=== PATIENT | female | born 1930 | race Caucasian/White ===

== ENCOUNTER → 2016-08-21 | Outpatient (REF) | payer MEDICARE, MEDICAID ==
[~2016-08-21] MED LIST: /FENO48TA OR; AMLO5TAB2 PO; Amlodipine PO; CARB25TA31 PO; CENTTAB OR; ESTR3TA OR; FOLI1TAB OR; HYDR10TA2 OR; HYDR10TA3 OR; LEVO500T PO; LIDO1DIS2 TOP; LIDO5DIS EX; LISI10TA4 OR; LOSA25TA8 OR; MAGN500T2 OR; MIRAPEX PO; NEUR100C OR; OYST500T OR; SINE25TA2 OR; SYNT50TA OR; TOPI25TA2 OR; VICO5TAB OR; VIT D 2000 PO; VITA100T OR; VITA25003 SL; VITA400C OR; VITAMIN D50000 UNT OR; ZOLO100T OR; dexilant PO
[2016-08-21 12:18] LABS: ALBUMIN 3.4 GM/DL (3.2-5.2); ALBUMIN/GLOBULIN RATIO 1.13 (1.00-1.93); BILIRUBIN,TOTAL 0.3 MG/DL (0.2-1.0); CALCIUM LEVEL 8.9 MG/DL (8.8-10.2); CREATININE FOR GFR 1.13 MG/DL (0.55-1.02); GLOMERULAR FILTRATION RATE 48.8 (>32); POTASSIUM SERUM 4.2 MEQ/L (3.5-5.1); TOTAL PROTEIN 6.4 GM/DL (6.4-8.2)
== END | disposition home or self-care (01) ==
LOC: M SFHCPLAZ 09:16
PROVIDERS: ATTEND Internal Medicine
DX: I10 Essential (primary) hypertension (principal); E78.00 Pure hypercholesterolemia, unspecified; E03.9 Hypothyroidism, unspecified

== ENCOUNTER → 2016-10-15 | Outpatient (CLI) | payer MEDICARE, MEDICAID ==
--- NOTE | 2016-10-15 12:28 | REPMRS ---
Patient History The patient states she has not had a clinical breast exam in over a year. No known family history of cancer. Digital Woman Screen Mammo: October 15, 2016 - Exam #: [id number] Bilateral CC and MLO view(s) were taken. Technologist: Denise Larson, Technologist Prior study comparison: 2014, digital bilateral screening mammo, performed at [facility]. FINDINGS: There are scattered fibroglandular densities. There has been no change in the appearance of the mammogram from the prior studies. There is a mild amount of residual fibroglandular tissue which is fairly symmetric. There is no interval development of dominant mass, architectural distortion, or clustered microcalcification suggestive of malignancy. ASSESSMENT: BI-RADS/ACR category 1 mammogram. Negative. Recommendation Routine screening mammogram in 1 year (for women over age 40). This mammogram was interpreted with the aid of an FDA-approved computer-aided dectection system. Electronically Signed By: Sonny Sung MD 10/15/16 [id number]
== END ==
LOC: M WHC 11:06
PROVIDERS: ATTEND Internal Medicine
DX: Z12.31 Encounter for screening mammogram for malignant neoplasm of breast (principal); M81.0 Age-related osteoporosis without current pathological fracture
CPT/HCPCS: 77080; G0202

== ENCOUNTER → 2017-01-01 | Outpatient (REF) | payer MEDICARE, MEDICAID ==
[~2017-01-01] MED LIST changes: +ATOR1TAB19 PO; +DEXI60CA2 PO; +FURO40TA2 PO; +HYDR-3713 PO; +LEVO25TA5 PO; +LOSA25TA8 PO; +MIRA0.254 PO; +TOPA1TAB PO
[2017-01-01 12:37] LABS: CALCIUM LEVEL 9.3 MG/DL (8.8-10.2); CREATININE FOR GFR 1.18 MG/DL (0.55-1.02); GLOMERULAR FILTRATION RATE 46.5 (>32); POTASSIUM SERUM 4.1 MEQ/L (3.5-5.1)
== END ==
LOC: M SFHCPLAZ 08:59
PROVIDERS: ATTEND Nurse Practitioner Adult Health
DX: R60.0 Localized edema (principal)
CPT/HCPCS: 80048; G0463

== ENCOUNTER 2017-03-19 11:17 | Day surgery (SDC) | payer MEDICARE, MEDICAID ==
[~2017-03-19] VITALS: Ht 152.4 cm; Wt 77.1 kg
[~2017-03-19 11:17] MED LIST changes: +ACETAMINOPHEN 325 MG TAB PO PRN; +BSS with VANC/TOB/EPI for EYE CASES IR ONE; +CYCLOPENTOLATE 2% OPHTH SOLN 2ML BTL OS ONE; +HEALON DUET (HEALON 10MG/ML 0.55ML & HEALON ENDOCOAT 30MG/ML 0.85ML) As Ordered ONE; +LIDOCAINE 1% SDV 5 ML VIAL As Ordered ONE; +LIDOCAINE 3.5 % 1ML OPHTH TOPICAL GEL OU ONE; +MOXIFLOXACIN IN BSS 0.25MG/0.25ML INTRACAMERAL INJ (OR EYE ONLY)(J2280) As Ordered ONE; +OFLOXACIN 0.3 % (OCUFLOX) OPTH SOL 5ML OS ONE; +PHENYLEPHRINE 2.5% OPHTH SOL 2ML OS ONE; +POVIDONE-IODINE 5% OPHTH PREP SOL 30ML As Ordered ONE; +PROPARACAINE 0.5% OPHTH SOL 15ML OS PRN; +TRIAMCINOLONE PRES FR 40 MG/ML 1ML(TRIESENCE)(OR EYE ONLY)(J3300 PER 1MG) As Ordered ONE; +TROPICAMIDE 1% OPHTH SOLN 2ML OS ONE
[2017-03-19] MEDS ORDERED: D5W/0.2% SODIUM CHLORIDE 250 ML IV ONE (11:30)
[2017-03-19] MEDS ORDERED: fentaNYL 100 MCG/2 ML INJECTION (J3010) As Ordered ONE (12:15)
[2017-03-19] MEDS ORDERED: MIDAZOLAM INJ 2 MG/2 ML VIAL (J2250) As Ordered ONE (12:15)
[2017-03-19] MEDS ORDERED: AcetaZOLAMIDE 500 MG ER CAP PO ONE (13:30)
[2017-03-19] MEDS ORDERED: TRIMETHOBENZAMIDE 300 MG CAP PO PRN (13:30)
[2017-03-19 14:00] VITALS: BP 167/78
== END 2017-03-19 14:05 | disposition home or self-care (01) ==
LOC: M SDC 11:17
PROVIDERS: ATTEND Ophthalmology
DX: H26.9 Unspecified cataract (principal); I10 Essential (primary) hypertension; E03.9 Hypothyroidism, unspecified; R60.0 Localized edema; M19.90 Unspecified osteoarthritis, unspecified site; G43.909 Migraine, unspecified, not intractable, without status migrainosus; R29.818 Other symptoms and signs involving the nervous system; M54.9 Dorsalgia, unspecified; Z95.0 Presence of cardiac pacemaker; Z88.8 Allergy status to other drugs, medicaments and biological substances; Z79.899 Other long term (current) drug therapy
CPT/HCPCS: 66984; J2250; J2280; J3010; J3300; V2632

== ENCOUNTER → 2017-03-27 | Outpatient (REF) | payer MEDICARE, MEDICAID ==
[~2017-03-27] MED LIST changes: -ACETAMINOPHEN 325 MG TAB PO PRN; -BSS with VANC/TOB/EPI for EYE CASES IR ONE; -CYCLOPENTOLATE 2% OPHTH SOLN 2ML BTL OS ONE; -HEALON DUET (HEALON 10MG/ML 0.55ML & HEALON ENDOCOAT 30MG/ML 0.85ML) As Ordered ONE; -LIDOCAINE 1% SDV 5 ML VIAL As Ordered ONE; -LIDOCAINE 3.5 % 1ML OPHTH TOPICAL GEL OU ONE; -MOXIFLOXACIN IN BSS 0.25MG/0.25ML INTRACAMERAL INJ (OR EYE ONLY)(J2280) As Ordered ONE; -OFLOXACIN 0.3 % (OCUFLOX) OPTH SOL 5ML OS ONE; -PHENYLEPHRINE 2.5% OPHTH SOL 2ML OS ONE; -POVIDONE-IODINE 5% OPHTH PREP SOL 30ML As Ordered ONE; -PROPARACAINE 0.5% OPHTH SOL 15ML OS PRN; -TRIAMCINOLONE PRES FR 40 MG/ML 1ML(TRIESENCE)(OR EYE ONLY)(J3300 PER 1MG) As Ordered ONE; -TROPICAMIDE 1% OPHTH SOLN 2ML OS ONE
[2017-03-27 12:52] LABS: ALBUMIN 3.5 GM/DL (3.2-5.2); BILIRUBIN,TOTAL 0.4 MG/DL (0.2-1.0); CALCIUM LEVEL 8.9 MG/DL (8.8-10.2); CREATININE FOR GFR 1.32 MG/DL (0.55-1.02); GLOMERULAR FILTRATION RATE 40.7 (>32); MAGNESIUM LEVEL 2.5 MG/DL (1.8-2.4); POTASSIUM SERUM 4.5 MEQ/L (3.5-5.1)
== END ==
LOC: M SFHCPLAZ 08:35
PROVIDERS: ATTEND Internal Medicine
DX: I10 Essential (primary) hypertension (principal)

== ENCOUNTER 2017-04-14 09:09 | Day surgery (SDC) | payer MEDICARE, MEDICAID ==
[~2017-04-14] VITALS: Ht 152.4 cm; Wt 77.1 kg
[~2017-04-14 09:09] MED LIST changes: +ACETAMINOPHEN 325 MG TAB PO PRN; +BSS with VANC/TOB/EPI for EYE CASES IR ONE; +CYCLOPENTOLATE 2% OPHTH SOLN 2ML BTL OD ONE; +LIDOCAINE 3.5 % 1ML OPHTH TOPICAL GEL OU ONE; +OFLOXACIN 0.3 % (OCUFLOX) OPTH SOL 5ML OD ONE; +PHENYLEPHRINE 2.5% OPHTH SOL 2ML OD ONE; +PROPARACAINE 0.5% OPHTH SOL 15ML OD PRN; +TROPICAMIDE 1% OPHTH SOLN 2ML OD ONE
[2017-04-14] MEDS ORDERED: LR 1,000 ML IV ONE (09:15)
[2017-04-14] MEDS ORDERED: TRIAMCINOLONE PRES FR 40 MG/ML 1ML(TRIESENCE)(OR EYE ONLY)(J3300 PER 1MG) As Ordered ONE (09:38)
[2017-04-14] MEDS ORDERED: LIDOCAINE 1% SDV 5 ML VIAL As Ordered ONE (09:38)
[2017-04-14] MEDS ORDERED: MOXIFLOXACIN IN BSS 0.25MG/0.25ML INTRACAMERAL INJ (OR EYE ONLY)(J2280) As Ordered ONE (09:38)
[2017-04-14] MEDS ORDERED: POVIDONE-IODINE 5% OPHTH PREP SOL 30ML As Ordered ONE (09:38)
[2017-04-14] MEDS ORDERED: HEALON DUET (HEALON 10MG/ML 0.55ML & HEALON ENDOCOAT 30MG/ML 0.85ML) As Ordered ONE (09:38)
[2017-04-14] MEDS ORDERED: MIDAZOLAM INJ 2 MG/2 ML VIAL (J2250) As Ordered ONE (09:59)
[2017-04-14] MEDS ORDERED: fentaNYL 100 MCG/2 ML INJECTION (J3010) As Ordered ONE (09:59)
[2017-04-14] MEDS ORDERED: TRIMETHOBENZAMIDE 300 MG CAP PO PRN (10:30)
[2017-04-14] MEDS ORDERED: AcetaZOLAMIDE 500 MG ER CAP PO ONE (10:30)
[2017-04-14 10:35] VITALS: BP 182/81
== END 2017-04-14 10:50 | disposition home or self-care (01) ==
LOC: M SDC 09:09
PROVIDERS: ATTEND Ophthalmology
DX: H25.11 Age-related nuclear cataract, right eye (principal); R00.1 Bradycardia, unspecified; I10 Essential (primary) hypertension; R60.0 Localized edema; E06.9 Thyroiditis, unspecified; M12.9 Arthropathy, unspecified; G25.81 Restless legs syndrome; E55.9 Vitamin D deficiency, unspecified; K21.9 Gastro-esophageal reflux disease without esophagitis; M54.2 Cervicalgia; R29.898 Other symptoms and signs involving the musculoskeletal system; G43.909 Migraine, unspecified, not intractable, without status migrainosus; M81.0 Age-related osteoporosis without current pathological fracture; Z88.6 Allergy status to analgesic agent; Z79.899 Other long term (current) drug therapy; Z95.0 Presence of cardiac pacemaker
CPT/HCPCS: 66984; J2250; J2280; J3010; J3300; V2632

== ENCOUNTER 2017-09-13 11:11 | Emergency (ER) | payer OTHER, MEDICAID, MEDICARE ==
[2017-09-13 12:19] LABS: BASO % 0.4 % (0.0-1.0); EOS # 0.1 10^3/uL (0.0-0.50); EOS % 1.5 % (0.0-3.0); HEMATOCRIT 33.7 % (36.0-47.0); HEMOGLOBIN 10.8 g/dl (12.0-16.0); IMMATURE GRANULOCYTE % 0.4 % (0-3.0); LYMPH # 1.8 10^3/uL (1.5-4.5); LYMPH % 20.6 % (24.0-44.0); MEAN CORPUSCULAR HEMOGLOBIN 30.9 pg (27.0-33.0); MEAN CORPUSCULAR VOLUME 96.6 fl (80.0-96.0); MONO # 0.6 10^3/uL (0.0-0.8); MONO % 7.2 % (0.0-5.0); NEUTROPHILS % 69.9 % (36.0-66.0); PLATELET COUNT, AUTOMATED 250 10^3/uL (150-450); RED BLOOD COUNT 3.49 10^6/uL (4.00-5.40); RED CELL DISTRIBUTION WIDTH 14.1 % (11.5-14.5); WHITE BLOOD COUNT 8.5 10^3/uL (4.0-10.0)
[2017-09-13 12:26] LABS: INR 1.09; PROTHROMBIN TIME 14.2 SECONDS (12.4-14.5)
[2017-09-13 12:36] LABS: ANION GAP 8 MEQ/L (8-16); BLOOD UREA NITROGEN 22 MG/DL (7-18); CALCIUM LEVEL 8.4 MG/DL (8.8-10.2); CARBON DIOXIDE LEVEL 20 MEQ/L (21-32); CHLORIDE LEVEL 113 MEQ/L (98-107); CK-MB VALUE MASS 14.5 NG/ML (0.0-3.6); CPK CREATINE PHOSPHOKINASE 419 U/L (26-192); CREATININE FOR GFR 1.45 MG/DL (0.55-1.30); GLOMERULAR FILTRATION RATE 36.5 (>32); GLUCOSE, FASTING 101 MG/DL (70-100); MB/CK RELATIVE INDEX 3.46 (< OR =4); SODIUM LEVEL 141 MEQ/L (136-145)
[2017-09-13 12:41] LABS: TROPONIN I 2.58 NG/ML (< 0.10)
[2017-09-13 12:42] LABS: ALBUMIN 3.3 GM/DL (3.2-5.2); ALBUMIN/GLOBULIN RATIO 0.97 (1.00-1.93); ALKALINE PHOSPHATASE 88 U/L (45-117); ALT/SGPT 26 U/L (12-78); AST/SGOT 45 U/L (7-37); BILIRUBIN,DIRECT 0.2 MG/DL (0.0-0.2); BILIRUBIN,TOTAL 0.6 MG/DL (0.2-1.0); C REACTIVE PROTEIN QUANTITATIV 1.46 MG/DL (0.00-0.30); NT-PRO BNP 10383 PG/ML (<450); THYROXINE (T4) 9.9 UG/DL (4.5-12.0); TOTAL PROTEIN 6.7 GM/DL (6.4-8.2)
[2017-09-13 12:51] LABS: LACTIC ACID SEPSIS PROTOCOL 1.6 MMOL/L (0.4-2.0)
[2017-09-13] MEDS ORDERED: HEPARIN SOD (PORCINE) 5000 UNITS/ML VIAL IV (13:00)
[2017-09-13 13:02] LABS: INFLUENZA A AMPLIFICATION NEGATIVE (NEGATIVE); INFLUENZA B AMPLIFICATION NEGATIVE (NEGATIVE)
[2017-09-13] MEDS: CLOPIDOGREL 300 MG TAB (PLAVIX) PO (13:28)
[2017-09-13] MEDS: FUROSEMIDE 40 MG/4 ML VIAL (J1940) IV (13:28)
[2017-09-13] MEDS: HEPARIN DRIP 25,000 UNITS in APPROPRIATE DILUENT 1 EA IV (13:36)
[2017-09-13 14:55] LABS: PARTIAL THROMBOPLASTIN TIME 30.7 SECONDS (26.8-37.9)
== END 2017-09-13 14:56 | disposition short-term general hospital (02) ==
LOC: M ED 11:11
DX: I21.4 Non-ST elevation (NSTEMI) myocardial infarction (principal); I11.0 Hypertensive heart disease with heart failure; I50.9 Heart failure, unspecified; R91.8 Other nonspecific abnormal finding of lung field; Z91.81 History of falling; E03.9 Hypothyroidism, unspecified; E78.5 Hyperlipidemia, unspecified; Z88.6 Allergy status to analgesic agent; Z79.899 Other long term (current) drug therapy
CPT/HCPCS: J1940

== ENCOUNTER → 2017-09-22 | Outpatient (REF) | payer MEDICARE, MEDICAID ==
[2017-09-22 12:28] LABS: HEMATOCRIT 32.2 % (36.0-47.0); HEMOGLOBIN 10.1 g/dl (12.0-16.0); MEAN CORPUSCULAR HEMOGLOBIN 29.9 pg (27.0-33.0); MEAN CORPUSCULAR HGB CONC 31.4 g/dl (32.0-36.5); MEAN CORPUSCULAR VOLUME 95.3 fl (80.0-96.0); PLATELET COUNT, AUTOMATED 253 10^3/uL (150-450); RED BLOOD COUNT 3.38 10^6/uL (4.00-5.40); RED CELL DISTRIBUTION WIDTH 14.5 % (11.5-14.5); TOTAL 25(OH) VITAMIN D 47.3 NG/ML (30.0-100.0); WHITE BLOOD COUNT 5.7 10^3/uL (4.0-10.0)
[2017-09-22 12:50] LABS: ALBUMIN 3.3 GM/DL (3.2-5.2); ALBUMIN/GLOBULIN RATIO 0.92 (1.00-1.93); ALKALINE PHOSPHATASE 75 U/L (45-117); ALT/SGPT 31 U/L (12-78); ANION GAP 13 MEQ/L (8-16); AST/SGOT 23 U/L (7-37); BILIRUBIN,TOTAL 0.5 MG/DL (0.2-1.0); BLOOD UREA NITROGEN 44 MG/DL (7-18); CALCIUM LEVEL 8.5 MG/DL (8.8-10.2); CARBON DIOXIDE LEVEL 17 MEQ/L (21-32); CHLORIDE LEVEL 111 MEQ/L (98-107); CHOLESTEROL LEVEL 128 MG/DL (<200); CHOLESTEROL RISK RATIO 3.368 (<5); CREATININE FOR GFR 1.37 MG/DL (0.55-1.30); GLUCOSE, FASTING 97 MG/DL (70-100); HDL CHOLESTEROL 38 MG/DL (>40); LDL CHOLESTEROL 58.6 MG/DL (<100); MAGNESIUM LEVEL 2.5 MG/DL (1.8-2.4); NON-HDL-C 90 MG/DL; POTASSIUM SERUM 4.8 MEQ/L (3.5-5.1); SODIUM LEVEL 141 MEQ/L (136-145); TOTAL PROTEIN 6.9 GM/DL (6.4-8.2); TRIGLYCERIDES LEVEL 157 MG/DL (<150)
== END ==
LOC: M SFHCPLAZ 08:16
DX: G25.81 Restless legs syndrome (principal); K22.70 Barrett's esophagus without dysplasia; I10 Essential (primary) hypertension; E78.00 Pure hypercholesterolemia, unspecified; E03.9 Hypothyroidism, unspecified; E55.9 Vitamin D deficiency, unspecified; M81.0 Age-related osteoporosis without current pathological fracture
CPT/HCPCS: 83735

== ENCOUNTER → 2017-11-11 | Outpatient (CLI) | payer OTHER, MEDICAID ==
[2017-11-11 10:45] LABS: ALBUMIN 3.3 GM/DL (3.2-5.2); ANION GAP 7 MEQ/L (8-16); BLOOD UREA NITROGEN 31 MG/DL (7-18); CALCIUM LEVEL 8.6 MG/DL (8.8-10.2); CARBON DIOXIDE LEVEL 23 MEQ/L (21-32); CHLORIDE LEVEL 113 MEQ/L (98-107); CREATININE FOR GFR 1.34 MG/DL (0.55-1.30); GLUCOSE, FASTING 98 MG/DL (70-100); PHOSPHORUS LEVEL 3.6 MG/DL (2.5-4.9); POTASSIUM SERUM 3.8 MEQ/L (3.5-5.1); SODIUM LEVEL 143 MEQ/L (136-145)
== END ==
LOC: M LAB 09:52
DX: I50.32 Chronic diastolic (congestive) heart failure (principal)
CPT/HCPCS: 80069

== ENCOUNTER → 2018-01-28 | Outpatient (REF) | payer MEDICARE, MEDICAID ==
[2018-01-28 12:43] LABS: ALBUMIN 3.4 GM/DL (3.2-5.2); ALBUMIN/GLOBULIN RATIO 0.92 (1.00-1.93); ALKALINE PHOSPHATASE 98 U/L (45-117); ALT/SGPT 20 U/L (12-78); ANION GAP 8 MEQ/L (8-16); AST/SGOT 16 U/L (7-37); BILIRUBIN,TOTAL 0.5 MG/DL (0.2-1.0); BLOOD UREA NITROGEN 40 MG/DL (7-18); CALCIUM LEVEL 8.7 MG/DL (8.8-10.2); CARBON DIOXIDE LEVEL 24 MEQ/L (21-32); CHLORIDE LEVEL 114 MEQ/L (98-107); CHOLESTEROL LEVEL 133 MG/DL (<200); CHOLESTEROL RISK RATIO 3.594 (<5); CREATININE FOR GFR 1.61 MG/DL (0.55-1.30); GLOMERULAR FILTRATION RATE 32.4 (>32); GLUCOSE, FASTING 95 MG/DL (70-100); HDL CHOLESTEROL 37 MG/DL (>40); LDL CHOLESTEROL 65.4 MG/DL (<100); MAGNESIUM LEVEL 2.5 MG/DL (1.8-2.4); NON-HDL-C 96 MG/DL; POTASSIUM SERUM 4.7 MEQ/L (3.5-5.1); SODIUM LEVEL 146 MEQ/L (136-145); TOTAL PROTEIN 7.1 GM/DL (6.4-8.2); TRIGLYCERIDES LEVEL 153 MG/DL (<150)
== END ==
LOC: M SFHCPLAZ 08:21
DX: I10 Essential (primary) hypertension (principal); E78.00 Pure hypercholesterolemia, unspecified
CPT/HCPCS: 83735

== ENCOUNTER → 2018-02-26 | Outpatient (CLI) | payer MEDICARE, MEDICAID ==
[2018-02-26 13:07] LABS: ALBUMIN 3.6 GM/DL (3.2-5.2); ANION GAP 12 MEQ/L (8-16); BLOOD UREA NITROGEN 58 MG/DL (7-18); CARBON DIOXIDE LEVEL 25 MEQ/L (21-32); CHLORIDE LEVEL 105 MEQ/L (98-107); CREATININE FOR GFR 1.91 MG/DL (0.55-1.30); GLOMERULAR FILTRATION RATE 26.6 (>32); GLUCOSE, FASTING 78 MG/DL (70-100); MAGNESIUM LEVEL 2.4 MG/DL (1.8-2.4); PHOSPHORUS LEVEL 3.9 MG/DL (2.5-4.9); POTASSIUM SERUM 3.7 MEQ/L (3.5-5.1); SODIUM LEVEL 142 MEQ/L (136-145)
== END ==
LOC: M LAB 11:25
DX: I50.32 Chronic diastolic (congestive) heart failure (principal)
CPT/HCPCS: 83735

== ENCOUNTER → 2018-03-05 | Outpatient (CLI) | payer MEDICARE, MEDICAID ==
[2018-03-05 10:37] LABS: ALBUMIN 3.3 GM/DL (3.2-5.2); ANION GAP 9 MEQ/L (8-16); BLOOD UREA NITROGEN 41 MG/DL (7-18); CARBON DIOXIDE LEVEL 24 MEQ/L (21-32); CHLORIDE LEVEL 111 MEQ/L (98-107); CREATININE FOR GFR 1.59 MG/DL (0.55-1.30); GLOMERULAR FILTRATION RATE 32.8 (>32); GLUCOSE, FASTING 96 MG/DL (70-100); PHOSPHORUS LEVEL 3.7 MG/DL (2.5-4.9); POTASSIUM SERUM 4.1 MEQ/L (3.5-5.1); SODIUM LEVEL 144 MEQ/L (136-145)
== END ==
LOC: M LAB 09:47
DX: I50.32 Chronic diastolic (congestive) heart failure (principal)
CPT/HCPCS: 80069

== ENCOUNTER → 2018-07-16 | Outpatient (REF) | payer MEDICARE, MEDICAID ==
[~2018-07-16] MED LIST changes: -ACETAMINOPHEN 325 MG TAB PO PRN; -BSS with VANC/TOB/EPI for EYE CASES IR ONE; -CYCLOPENTOLATE 2% OPHTH SOLN 2ML BTL OD ONE; +LEVO50TA5; -LIDOCAINE 3.5 % 1ML OPHTH TOPICAL GEL OU ONE; +LOSA25TA14 PO; -LOSA25TA8 PO; +MUCI600T31 PO; -OFLOXACIN 0.3 % (OCUFLOX) OPTH SOL 5ML OD ONE; -PHENYLEPHRINE 2.5% OPHTH SOL 2ML OD ONE; -PROPARACAINE 0.5% OPHTH SOL 15ML OD PRN; +SPIR-10; -TROPICAMIDE 1% OPHTH SOLN 2ML OD ONE; +VITA-122 PO
[2018-07-16 11:35] LABS: MEAN CORPUSCULAR HEMOGLOBIN 30.7 pg (27.0-33.0); MEAN CORPUSCULAR HGB CONC 32.4 g/dl (32.0-36.5); PLATELET COUNT, AUTOMATED 276 10^3/uL (150-450); RED BLOOD COUNT 3.58 10^6/uL (4.00-5.40); WHITE BLOOD COUNT 5.6 10^3/uL (4.0-10.0)
[2018-07-16 11:50] LABS: ALBUMIN 3.4 GM/DL (3.2-5.2); BILIRUBIN,TOTAL 0.4 MG/DL (0.2-1.0); CREATININE FOR GFR 1.36 MG/DL (0.55-1.30); GLOMERULAR FILTRATION RATE 39.2 (>32); MAGNESIUM LEVEL 2.4 MG/DL (1.8-2.4); POTASSIUM SERUM 4.2 MEQ/L (3.5-5.1); THYROID STIMULATING HORMONE 1.6 uIU/ML (0.358-3.740)
[2018-07-16 12:13] LABS: PTH INTACT 79.2 PG/ML (18.5-88.0)
== END ==
LOC: M SFHCPLAZ 08:56
PROVIDERS: ATTEND Internal Medicine
DX: I12.9 Hypertensive chronic kidney disease with stage 1 through stage 4 chronic kidney disease, or unspecified chronic kidney disease (principal); N18.3 Chronic kidney disease, stage 3 (moderate); K22.70 Barrett's esophagus without dysplasia; G25.81 Restless legs syndrome; E03.9 Hypothyroidism, unspecified

== ENCOUNTER 2018-09-07 10:50 | Emergency (ER) | payer MEDICAID, MEDICARE, OTHER ==
[~2018-09-07] VITALS: Ht 149.9 cm; Wt 68.2 kg
[~2018-09-07 10:50] MED LIST changes: -LEVO50TA5; +LEVO50TA5 PO
[2018-09-07] MEDS ORDERED: TORS5TAB2 PO (11:22)
[2018-09-07] MEDS ORDERED: BRIL90TA PO (11:26)
[2018-09-07] MEDS ORDERED: METO25TA4 PO (11:26)
[2018-09-07] MEDS ORDERED: TORS10TA3 PO (11:26)
[2018-09-07] MEDS ORDERED: ONDANSETRON 4MG/2ML VIAL (J2405) IV ONE (12:00)
[2018-09-07] MEDS ORDERED: MORPHINE 4 MG/ML 1ML VIAL/SYRINGE (J2270) IV ONE ×2 (12:00→12:45)
[2018-09-07] MEDS ORDERED: ACETAMINOPHEN 325 MG TAB PO ONE (12:00)
[2018-09-07] MEDS ORDERED: GABAPENTIN 300 MG CAP PO ONE (13:30)
[2018-09-07] MEDS ORDERED: LIDOCAINE 5% (LIDODERM) PATCH TD ONE (13:30)
--- NOTE | 2018-09-07 13:57 | REP ---
CT LUMBAR SPINE WITHOUT CONTRAST: HISTORY: Progressive low back pain. History of laminectomy. COMPARISON STUDY: September 06, 2013. TECHNIQUE: Helical scan was acquired. 4 mm axial and coronal and sagittal MPR images are generated and reviewed. CT FINDINGS: There is straightening and reversal of the normal lumbar lordosis. A levoconvex scoliotic curve is seen. The patient is status post fusion of the L4-5 disc and right lumbar laminectomy at L4, L4-5. These findings are unchanged. Advanced degenerative disc disease is seen at L3-4 and to a slightly lesser extent and L2-3. There is moderate to severe L3-4 central canal stenosis and L2-3 central canal stenosis again noted. These findings are unchanged as well. However, there is a new finding consistent with a healing linear cleft through the L5 pedicle and right lateral L5 vertebral body consistent with healing stress fracture. This is nondisplaced. This is a new finding from the prior study. No sacral fracture is seen. No bony destructive lesion noted. IMPRESSION: Stable postoperative changes with right laminectomy and ventral fusion at L4-5. Degenerative spondylosis changes at L2-3 and L3-4 with central canal stenosis at both these levels unchanged. New healing stress fracture across the right L5 pedicle into the right lateral L5 vertebral body. Nondisplaced. Electronically Signed by Tanner Pickett MD 09/07/2018 03:19 P
[2018-09-07] MEDS ORDERED: CYCL5TAB PO (15:26)
[2018-09-07] MEDS ORDERED: ENDO10TA8 PO (15:26)
[2018-09-07] MEDS ORDERED: GABA-843 PO (15:27)
[2018-09-07] MEDS ORDERED: CYCLOBENZAPRINE 5MG TABLET PO ONE (15:30)
[2018-09-07 15:39] VITALS: BP 92/55
[2018-09-07] MEDS ORDERED: WHEEMIS3 XX (16:05)
[2018-09-07] MEDS ORDERED: **NOTE PATIENT COMMENT** MISC XX SCH (21:00)
== END 2018-09-07 16:14 | disposition home or self-care (01) ==
LOC: M ED 10:50 → EDBD 10:50 → M ED 16:14
DX: M48.07 Spinal stenosis, lumbosacral region (principal); M47.816 Spondylosis without myelopathy or radiculopathy, lumbar region; S32.058D Other fracture of fifth lumbar vertebra, subsequent encounter for fracture with routine healing; X58.XXXD Exposure to other specified factors, subsequent encounter; Y92.89 Other specified places as the place of occurrence of the external cause; I11.0 Hypertensive heart disease with heart failure; I50.9 Heart failure, unspecified; E78.5 Hyperlipidemia, unspecified; E03.9 Hypothyroidism, unspecified; G43.909 Migraine, unspecified, not intractable, without status migrainosus; G25.81 Restless legs syndrome; M81.0 Age-related osteoporosis without current pathological fracture; Z88.8 Allergy status to other drugs, medicaments and biological substances; Z79.899 Other long term (current) drug therapy
CPT/HCPCS: 72131; 96374; 96375; 96376; 99284; J2270; J2405

== ENCOUNTER 2018-09-11 19:05 | Inpatient (IN) | payer MEDICAID, MEDICARE, OTHER ==
[~2018-09-11] VITALS: Ht 149.9 cm; Wt 69.5 kg
[~2018-09-11 19:05] MED LIST changes: +BRIL90TA PO; +CYCL5TAB PO; +ENDO10TA8 PO; +GABA-843 PO; +METO25TA4 PO; +TORS10TA3 PO; +TORS5TAB2 PO; +WHEEMIS3 XX
[2018-09-11] MEDS ORDERED: fentaNYL 100 MCG/2 ML INJECTION (J3010) IV ONE (21:00)
[2018-09-11 22:16] LABS: BASO % 0.1 % (0.0-1.0); EOS % 0.1 % (0.0-3.0); HEMATOCRIT 31.9 % (36.0-47.0); HEMOGLOBIN 10.2 g/dl (12.0-15.5); LYMPH # 1.7 10^3/uL (1.5-4.5); MEAN CORPUSCULAR HEMOGLOBIN 30.4 pg (27.0-33.0); MEAN CORPUSCULAR VOLUME 95.2 fl (80.0-96.0); MONO # 1.3 10^3/uL (0.0-0.8); MONO % 9.7 % (0.0-5.0); NEUTROPHILS # 10.2 10^3/uL (1.8-7.7); NEUTROPHILS % 76.3 % (36.0-66.0); PLATELET COUNT, AUTOMATED 255 10^3/uL (150-450); RED BLOOD COUNT 3.35 10^6/uL (4.00-5.40); WHITE BLOOD COUNT 13.3 10^3/uL (4.0-10.0)
[2018-09-11] MEDS ORDERED: THERSOL2 OU (22:16)
[2018-09-11] MEDS ORDERED: NITR0.4S14 SL (22:16)
[2018-09-11] MEDS ORDERED: GABA-843 PO (22:16)
[2018-09-11] MEDS ORDERED: POTA10CA32 PO (22:16)
[2018-09-11] MEDS ORDERED: TOPI50TA9 PO (22:16)
[2018-09-11] MEDS ORDERED: FLAX10002 PO (22:16)
[2018-09-11] MEDS ORDERED: CYCL5TAB PO (22:16)
[2018-09-11 22:38] LABS: CALCIUM LEVEL 7.9 MG/DL (8.8-10.2); CREATININE FOR GFR 2.09 MG/DL (0.55-1.30); GLOMERULAR FILTRATION RATE 23.9 (>32); POTASSIUM SERUM 3.7 MEQ/L (3.5-5.1)
[2018-09-11] MEDS: MORPHINE 2 MG/ML 1ML SYRINGE (J2270) IV PRN ×2 (22:55→23:36)
[2018-09-11] MEDS: NS 1,000 ML IV SCH (23:00)
[2018-09-12 01:00] VITALS: BP 147/69
[2018-09-12] MEDS: GABAPENTIN 300 MG CAP PO SCH ×4 (01:05→20:37)
[2018-09-12] MEDS: METOPROLOL TART 25 MG TABLET PO SCH ×3 (01:05→20:39)
[2018-09-12] MEDS: TOPIRAMATE (TopAMAX) 25 MG TAB PO SCH ×3 (01:06→20:37)
[2018-09-12] MEDS: PERCOCET 5MG/325MG TAB PO PRN ×5 (01:06→20:38)
[2018-09-12] MEDS: CYCLOBENZAPRINE 5MG TABLET PO PRN ×2 (01:06→14:44)
--- NOTE | 2018-09-12 05:08 | ECGEPIP ---
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
[2018-09-12] MEDS: LEVOTHYROXINE 50MCG TABLET (0.05MG) PO SCH (05:22)
[2018-09-12 06:00] VITALS: BP 114/58
[2018-09-12 06:35] LABS: HEMATOCRIT 27.1 % (36.0-47.0); HEMOGLOBIN 8.7 g/dl (12.0-15.5); MEAN CORPUSCULAR HEMOGLOBIN 30.6 pg (27.0-33.0); MEAN CORPUSCULAR HGB CONC 32.1 g/dl (32.0-36.5); MEAN CORPUSCULAR VOLUME 95.4 fl (80.0-96.0); PLATELET COUNT, AUTOMATED 217 10^3/uL (150-450); RED BLOOD COUNT 2.84 10^6/uL (4.00-5.40); WHITE BLOOD COUNT 8.8 10^3/uL (4.0-10.0)
[2018-09-12 06:59] LABS: CALCIUM LEVEL 7.6 MG/DL (8.8-10.2); CREATININE FOR GFR 1.72 MG/DL (0.55-1.30); GLOMERULAR FILTRATION RATE 29.9 (>32)
--- NOTE | 2018-09-12 07:45 | HPE ---
DATE OF ADMISSION: 09/11/2018 PRIMARY CARE PROVIDER: Dr. Mono Sahni. ATTENDING PHYSICIAN: Dr. Nath. ROD CUP FILLER: Dr. Escobar, orthopedics. CHIEF COMPLAINT: Right hip pain after fall. HISTORY OF PRESENT ILLNESS: The patient is an 88-year-old white female with multiple chronic medical conditions, who came to the emergency room for evaluation of above complaint. History provided by her as well as her daughter who is with her in the emergency room. Per the daughter, patient has chronic back pain due to degenerative joint disease and she had multiple surgeries for her back. She is living by herself. She is very active, moves around with a walker. Today around 6 p.m., she fell at home and ambulance was called and she was brought to the emergency room for full evaluation. She denies any syncopal episode. In the emergency room, she had x-ray done which demonstrates she had right hip fracture. Medicine service called for admission. REVIEW OF SYSTEMS: Denies fever or chills. No syncope. No headache. No blurred vision. No shortness of breath. No chest pain. No abdominal pain. No nausea. No vomiting. All other system reviewed but negative. She does have horrible pain in right hip. PAST MEDICAL HISTORY: 1. Coronary artery disease status post stents many years ago. 2. Hypertension. 3. Dyslipidemia. 4. Hypothyroidism. 5. Chronic back pain due to degenerative joint disease. PAST SURGICAL HISTORY: 1. Pacemaker placement 2010. 2. Appendectomy. 3. Hysterectomy. 4. Cardiac stents a few years ago. 5. Back surgery times four. ALLERGIES: Allergic to ASPIRIN. FAMILY HISTORY: Reviewed and noncontributory. SOCIAL HISTORY: No tobacco use. No alcohol abuse. No elicit drug abuse. She is living by herself and she is FULL CODE. MEDICATIONS: - [place] 3/325 one tablet every 6 hours as needed - Lipitor 10 mg by mouth daily - vitamin D3 1000 units daily - cyclobenzaprine 5 mg by mouth daily - Neurontin 300 mg by mouth three times a day - Synthroid 50 mcg by mouth daily - Losartan 25 mg by mouth daily - metoprolol 25 mg twice daily - potassium chloride 10 mEq by mouth daily - Mirapex 0.25 mg by mouth daily - Brilinta 90 mg by mouth twice daily - Topamax 50 mg by mouth twice daily - torsemide 10 mg by mouth daily - Dexilant 60 mg by mouth daily PHYSICAL EXAMINATION: Vitals: Temperature 96, heart rate 62, respiratory rate 18, blood pressure 139/73, oxygen saturation 99% on room air. General: She is awake, alert, oriented times three. She is in acute pain. HEENT: Atraumatic. Pupils equal, round, and reactive to light. No jaundice. Extraocular muscles intact. Ear, nose, throat are normal. Mouth: Mucous not dry. Neck: No jugular venous distention. No bruits. Lungs: Clear. No wheeze. No crackles. Cardiac: S1, S2. Regular. No murmur. Abdomen: Bowel sounds are positive, nontender. Extremities: No edema in bilateral lower extremities. She does have right lower extremity shortened and acts rotated. Neurologically: Nonfocal. Skin: No rash. Psychologic: No acute psychosis except the pain. Labs including folate, CBC and differential showed WBC 13.9, hemoglobin and hematocrit 10.2/32, platelets 255. Sodium 142, potassium 3.7, chloride 108, bicarbonate 25, BUN 73, creatinine 2.9. X-rays reviewed. IMPRESSION: 1. Right hip fracture due to mechanical fall. 2. Acute renal failure on chronic kidney disease stage III. 3. Coronary artery disease status post stent. 4. Hypertension. 5. Dyslipidemia. 6. Chronic lower back pain. PLAN: Patient will be admitted to medical/surgical floor. I will continue her home medication except Brilinta which will be on hold. She will be consulted with orthopedics for surgical repair of her right hip. However, since she is on Brilinta, so the surgery will probably need to be delayed for 2-3 days. I will put her on heparin for deep venous thrombosis (DVT) prophylaxis. RUBI
--- NOTE | 2018-09-12 08:09 | REP ---
Right femur four views: There is an intertrochanteric fracture. There is no dislocation. Mineralization is normal. There are no calcifications or foreign bodies. Electronically Signed by Sonny Durand MD 09/12/2018 08:01 A
--- NOTE | 2018-09-12 08:10 | REP ---
Right hip two views: There is an intertrochanteric fracture. There is no dislocation. Mineralization is normal. No calcifications or foreign bodies. Electronically Signed by Sonny Durand MD 09/12/2018 08:01 A
--- NOTE | 2018-09-12 08:11 | REP ---
Chest single AP view, supine, nine p.m.: Comparison is 09/13/2017. Lung sands are clear. Cardiac size is normal. The tiffanie, mediastinum, skeletal structures are unremarkable. There is a dual-chamber pacemaker entering from left, unchanged. Impression: Negative chest with the patient supine. Electronically Signed by Sonny Durand MD 09/12/2018 08:03 A
--- NOTE | 2018-09-12 08:13 | IPN ---
DATE: 09/12/2018 PRIMARY CARE PROVIDER: Dr. Mono Sahni ATTENDING PHYSICIAN: Dr. Deanna Nath HISTORY: Aria Lo is an 88-year-old patient of Dr. Mono Sahni's who is admitted with a right hip fracture. History and physical has not been transcribed yet. The case has been discussed with An Sahni, who is rounding for the orthopedic group today. Review of the patient's outpatient record: Last seen by Dr. Sahni 07/22/2018. She has a history of coronary artery disease, LAD stent placed 09/21, now on Brilinta, has antiplatelet therapy. She had a nuclear stress test 09/21; ejection fraction 76%. No reversible ischemia. She is followed by Dr. Riley at [facility]. Other past medical history shows hypertension with renal disease, hyperlipidemia for which she is on atorvastatin, vitamin D deficiency with a therapeutic vitamin D level 09/21, hypothyroidism - on levothyroxine replacement, restless leg syndrome, stage III chronic kidney disease, history of osteoporosis, intolerant of oral bisphosphonates. I do not know if she has been treated with Reclast or other alternatives. She is on Topamax for migraine prophylaxis. She has chronic disc disease, has had four prior laminectomies, is on chronic narcotic therapy for this. She has a history of Peoples's esophagus, and she has balance disorders, which might complicate her rehabilitation. She is status post pacemaker for sick sinus syndrome; pacemaker is from 2010. She has no chest pain, shortness of breath. Denies rectal bleeding, urinary bleeding and epistaxis. PHYSICAL EXAMINATION: Blood pressure 114/58, pulse 60, respiratory rate 18, 95% oxygen (O2) saturation. General Appearance: She is lying in bed. She is uncomfortable. Lungs: Clear. Heart: Regular rhythm with a 1/6 systolic ejection murmur. Abdomen: Soft, nontender, no masses. No peripheral edema. LABORATORY: White count 8.8, hemoglobin 8.7, platelets 217. Sodium 144, potassium 4.0, BUN 64, creatinine 1.7, glucose 100. IMPRESSION: 1. Right hip fracture. The patient is on Brilinta. Typically would give this 5-7 days before clearing for the operating room. I do have a call into Dr. Bonds, the anesthesiologist, to discuss this. Spoke with An Sahni of orthopedics about this. 2. Coronary artery disease. Patient's cardiac status is stable. Most recent nuclear stress test from 09/21 showed no reversible ischemia. She is having no active coronary symptoms. Her electrocardiogram on admission showed paced rhythm, so that was not very helpful. 3. Chronic kidney disease, stage III-IV. Glomerular filtration rate (GFR) has been in the low 30s to 40 for the last year; down a little bit now, probably due to blood loss and dehydration. Intravenous (IV) fluids have been ordered. 4. Hyperlipidemia. Continue her atorvastatin. 5. Chronic pain syndrome with degenerative disc disease and now a right hip fracture in a patient who is on chronic narcotic therapy. Opiate tolerance is already present. Will have to adjust dose of her pain medications to accommodate for this. 6. Hypertensive heart disease. She is on losartan, metoprolol, spironolactone, torsemide at home. At this point, will hold the diuretic as well as the losartan in the face of the slightly decreased renal function. Spironolactone will also be held. She could have the losartan restarted if pressure becomes elevated. Would hold this on the morning prior to her pending surgery. 7. Hypothyroidism. levothyroxine 50 mcg daily. 8. Restless leg syndrome. She is on Mirapex 0.25 mg one to two at bedtime, which we will continue. 9. Vitamin D deficiency. She can restart vitamin D as an outpatient. 10. Osteoporosis. Consideration given to Reclast therapy after discharge, which has been shown to reduce overall mortality following hip fracture. 11. Balance issues. Physical therapy needs to be aware that she has balance issues and this might complicate rehabilitation.
[2018-09-12 08:37] LABS: INR 1.15; PROTHROMBIN TIME 14.9 SECONDS (12.1-14.4)
[2018-09-12 08:38] LABS: PARTIAL THROMBOPLASTIN TIME 25.7 SECONDS (25.4-37.6)
--- NOTE | 2018-09-12 08:44 | CR.PDOC ---
General Date of Consultation: Sep 12, 2018 Referring Provider: Osman Xie MD Primary Care Physician: Mono Sahni Consultation REASON FOR CONSULTATION/CHIEF COMPLAINT: R hip fracture. HISTORY OF PRESENT ILLNESS: Patient is an 88 y/o female community ambulator who sustained a mechanical fall from standing height in her bathroom yesterday resulting in a proximal femur fracture. She was admitted to the hospitalist service for medical optimization and risk stratification. She denies any ante cedent chest pain, dizziness, shortness of breath, or other constitutional symptoms. She did have multiple stents placed last year and takes Brillinta. She localizes pain to the RLE. Had another fall a month ago with a minimally displaced vertebral compression fracture. ALLERGIES: Please see below. HOME MEDICATIONS: Please see below. PAST MEDICAL HISTORY: 1. CAD 2. Hypothyroidism 3. Hypertension 4. Osteoporosis PAST SURGICAL HISTORY: 1. Pacemaker placement 2. Cardiac stent placement 3. 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 Does not smoke, drink, or use illicit drugs. Independent in all ADLs REVIEW OF SYSTEMS: CONSTITUTIONAL: No fevers, chills, or night sweats. CARDIOVASCULAR: + presence of pacemaker and stennts per HPI. No acute chest pain, palpitations. RESPIRATORY: NO cough, wheeze, SOB. GENITOURINARY: No pain or burning with urination. MUSCULOSKELETAL: Back pain from compression fx per HPI. GASTROINTESTINAL: NO nausea, vomiting, diarrhea. PHYSICAL EXAMINATION: VITAL SIGNS: Please see below. GENERAL APPEARANCE: Well nourished female, appears stated age, no acute distress. HEENT: Normocephalic, atraummatic. RESPIRATORY: non labored breathing. CARDIOVASCULAR: RRR. 2+ DP/PT pulses, BCR all digits RLE. EXTREMITIES: RLE in flexed, externally rotated position. Diffuse tenderness around anterior and lateral hip and thigh. Able to flex/extend toes and ankle. NEUROLOGICAL: Sensation/motor intact in RLE femoral, tibial, sural, saphenous, SPN, DPN distributions. LABORATORY DATA: Please see below. Radiographs: Plain radiographs of the hip, pelvis, and femur demonstrate a displaced intertrochanteric femur fracture. ASSESSMENT: 88 y/o female with a displaced proximal femur fracture PLAN: I had a long discussion with the patient regarding the risks, benefits, indications, and alternatives of operative and nonoperative management and recommend closed versus open reduction and cephalomedullary nail fixation. Given that patient is on Brillinta, the washout period for spinal anesthesia is 5-7 days. However, that level of delay comes with significant increased mortality risk, which must be weight against the risk of general anesthesia for early fixation and mobilization. Surgical bleeding is not a clinically significant risk in this setting given the minimally invasive nature of this fixation technique. I have discussed this with the hospitalist. Will discuss with anesthesia. Plan to proceed to OR when medically optimized as soon as possible. The patient expressed understanding and agreed with the plan and all questions were answered. Vital Signs/I&O Vital Signs Date Time Temp Pulse Resp B/P (MAP) Pulse Ox O2 Delivery O2 Flow Rate FiO2 09/12/18 06:00 96.6 60 18 114/58 (76) 95 09/11/18 21:45 Room Air I&O- Last 24 Hours up to 6 AM 09/12/18 06:00 Intake Total 0 ml Output Total 500 ml Balance -500 ml Laboratory Data Labs 24H Laboratory Tests 2 09/11/18 21:58: Immature Granulocyte % (Auto) 0.8, White Blood Count 13.3H, Red Blood Count 3.35L, Hemoglobin 10.2L, Hematocrit 31.9L, Mean Corpuscular Volume 95.2, Mean Corpuscular Hemoglobin 30.4, Mean Corpuscular Hemoglobin Concent 32.0, Red Cell Distribution Width 13.9, Platelet Count 255, Neutrophils (%) (Auto) 76.3H, Lymphocytes (%) (Auto) 13.0L, Monocytes (%) (Auto) 9.7H, Eosinophils (%) (Auto) 0.1, Basophils (%) (Auto) 0.1, Neutrophils # (Auto) 10.2H, Lymphocytes # (Auto) 1.7, Monocytes # (Auto) 1.3H, Eosinophils # (Auto) 0.0, Basophils # (Auto) 0.0, Nucleated Red Blood Cells % (auto) 0.0, Anion Gap 9, Glomerular Filtration Rate 23.9L, Blood Urea Nitrogen 73H, Creatinine 2.09H, Sodium Level 142, Potassium Level 3.7, Chloride Level 108H, Carbon Dioxide Level 25, Calcium Level 7.9L 09/12/18 06:06: Nucleated Red Blood Cells % (auto) 0.0, Anion Gap 7L, Glomerular Filtration Rate 29.9L, Blood Urea Nitrogen 64H, Creatinine 1.72H, Sodium Level 144, Potassium Level 4.0, Chloride Level 112H, Carbon Dioxide Level 25, Calcium Level 7.6L 09/12/18 07:59: CBC/BMP Laboratory Tests 09/11/18 21:58 Red Blood Count 3.35 L, Mean Corpuscular Volume 95.2, Mean Corpuscular Hemoglobin 30.4, Mean Corpuscular Hemoglobin Concent 32.0, Red Cell Distribution Width 13.9, Neutrophils (%) (Auto) 76.3 H, Lymphocytes (%) (Auto) 13.0 L, Monocytes (%) (Auto) 9.7 H, Eosinophils (%) (Auto) 0.1, Basophils (%) (Auto) 0.1, Neutrophils # (Auto) 10.2 H, Lymphocytes # (Auto) 1.7, Monocytes # (Auto) 1.3 H, Eosinophils # (Auto) 0.0, Basophils # (Auto) 0.0, Calcium Level 7.9 L 09/12/18 06:06 Red Blood Count 2.84 L, Mean Corpuscular Volume 95.4, Mean Corpuscular Hemoglobin 30.6, Mean Corpuscular Hemoglobin Concent 32.1, Red Cell Distribution Width 14.1, Calcium Level 7.6 L Allergies Coded Allergies: Aspirin (Verified Allergy, Severe, SWOLLEN MOUTH, 09/11/18) Home Medications Scheduled (Dexilant) 60 Mg Cap, 60 MG PO DAILY, (Reported) (Flax Seed Oil 1000 mg) 1 Cap Cap, 1,000 MG PO DAILY, (Reported) Atorvastatin Calcium (Atorvastatin Calcium) 10 Mg Tab, 10 MG PO DAILY, (Reported) Cholecalciferol (Vitamin D3) 1,000 Unit Tab, 1,000 UNIT PO DAILY, (Reported) Gabapentin (Gabapentin) 300 Mg Cap, 300 MG PO TID, (Reported) Levothyroxine Sodium (Synthroid) 50 Mcg Tab, 50 MCG PO DAILY, (Reported) Losartan Potassium (Losartan Potassium) 25 Mg Tab, 25 MG PO DAILY, (Reported) Metoprolol Tartrate (Metoprolol Tartrate) 25 Mg Tab, 25 MG PO BID, (Reported) Nitroglycerin (Nitroglycerin) 0.4 Mg Sub, 0.4 MG SL NITRO, (Reported) Potassium Chloride (Potassium Chloride ER) 10 Meq Cap, 10 MEQ PO DAILY, (Reported) Pramipexole Dihydrochloride (Mirapex) 0.25 Mg Tab, 0.25 MG PO DAILY, (Reported) Ticagrelor Base (Brilinta) 90 Mg Tab, 90 MG PO BID, (Reported) Topiramate (Topiramate) 50 Mg Tab, 50 MG PO BID, (Reported) Torsemide (Torsemide) 10 Mg Tab, 10 MG PO DAILY, (Reported) Scheduled PRN (Theratears) 0.25 % Dori, 2 DROP OU QID PRN for DRY EYES, (Reported) Acetaminophen/Hydrocodone (Hydrocodone/Acetaminophen 5-325 mg) 1 Tab Tab, 1 TAB PO Q6H PRN for PAIN, (Reported) Cyclobenzaprine HCl (Cyclobenzaprine HCl) 5 Mg Tab, 5 MG PO TID PRN for MUSCLE SPASMS, (Reported) GHADA SHIPLEY MD Sep 12, 2018 08:44
[2018-09-12] MEDS ORDERED: ENOXAPARIN 40 MG/0.4 ML SYRINGE (J1650) SC SCH (09:00)
[2018-09-12] MEDS ORDERED: PREVNAR 13 VACCINE SYRINGE (CPT CODE:90670) IM ONE (09:00)
[2018-09-12] MEDS: ENOXAPARIN 30 MG/0.3 ML SYR (J1650) SC SCH (09:00)
[2018-09-12] MEDS ORDERED: LOSARTAN 25 MG TAB PO SCH (09:00)
[2018-09-12] MEDS: PRAMIPEXOLE 0.25 MG TAB PO SCH (09:47)
[2018-09-12] MEDS: SENOKOT S TAB PO SCH ×2 (09:47→20:37)
[2018-09-12] MEDS: PANTOPRAZOLE 40MG TAB (PROTONIX) PO SCH (09:47)
[2018-09-12] MEDS: ATORVASTATIN 10 MG TAB PO SCH (09:47)
[2018-09-12] MEDS: VITAMIN D 1,000 INTERNATIONAL UNITS TABLET PO SCH (09:50)
[2018-09-12 14:00] VITALS: BP 105/56
[2018-09-12 22:00] VITALS: BP 97/54
[2018-09-12] MEDS: NS 1,000 ML IV SCH (23:28)
[2018-09-13] MEDS: MORPHINE 10 MG/ML 1ML VIAL (J2270) IV PRN ×4 (00:22→16:14)
[2018-09-13] MEDS: CYCLOBENZAPRINE 5MG TABLET PO PRN ×3 (00:22→21:10)
[2018-09-13] MEDS: LEVOTHYROXINE 50MCG TABLET (0.05MG) PO SCH (05:34)
[2018-09-13 06:00] VITALS: BP_SYST 152; BP_SYST 97; BP_DIAS 54; BP_DIAS 66
[2018-09-13] MEDS: PERCOCET 5MG/325MG TAB PO PRN ×3 (06:34→21:11)
[2018-09-13 06:48] LABS: HEMATOCRIT 27.8 % (36.0-47.0); HEMOGLOBIN 8.5 g/dl (12.0-15.5); MEAN CORPUSCULAR HEMOGLOBIN 30.2 pg (27.0-33.0); MEAN CORPUSCULAR HGB CONC 30.6 g/dl (32.0-36.5); MEAN CORPUSCULAR VOLUME 98.9 fl (80.0-96.0); PLATELET COUNT, AUTOMATED 190 10^3/uL (150-450); RED BLOOD COUNT 2.81 10^6/uL (4.00-5.40); WHITE BLOOD COUNT 8.7 10^3/uL (4.0-10.0)
[2018-09-13 07:00] LABS: CALCIUM LEVEL 7.4 MG/DL (8.8-10.2); CREATININE FOR GFR 1.27 MG/DL (0.55-1.30); GLOMERULAR FILTRATION RATE 42.5 (>32); POTASSIUM SERUM 3.9 MEQ/L (3.5-5.1)
[2018-09-13] MEDS: NS 1,000 ML IV SCH ×3 (08:40→21:12)
[2018-09-13] MEDS: ENOXAPARIN 30 MG/0.3 ML SYR (J1650) SC SCH (09:00)
[2018-09-13] MEDS: METOPROLOL TART 25 MG TABLET PO SCH ×2 (10:38→21:10)
[2018-09-13] MEDS: GABAPENTIN 300 MG CAP PO SCH ×3 (10:39→21:10)
[2018-09-13] MEDS: SENOKOT S TAB PO SCH ×2 (10:39→21:10)
[2018-09-13] MEDS: VITAMIN D 1,000 INTERNATIONAL UNITS TABLET PO SCH (10:39)
[2018-09-13] MEDS: PRAMIPEXOLE 0.25 MG TAB PO SCH (10:39)
[2018-09-13] MEDS: TOPIRAMATE (TopAMAX) 25 MG TAB PO SCH ×2 (10:39→21:10)
[2018-09-13] MEDS: ATORVASTATIN 10 MG TAB PO SCH (10:39)
[2018-09-13] MEDS: PANTOPRAZOLE 40MG TAB (PROTONIX) PO SCH (10:40)
[2018-09-13 14:00] VITALS: BP 136/65
[2018-09-13] MEDS ORDERED: FUROSEMIDE 20 MG/2 ML VIAL (J1940) IV ONE (14:00)
--- NOTE | 2018-09-13 16:15 | IPNPDOC ---
Date Seen The patient was seen on 09/13/18. Progress Note SUBJECTIVE: Patient is an 88 y/o female with a R intertrochanteric femur fracture. She was not cleared for surgery yesterday secondary to concern for bleeding risk with her antiplatelet therapy. There were no acute overnight events and no complaints. OBJECTIVE PHYSICAL EXAMINATION: VITAL SIGNS: Please see below. GENERAL APPEARANCE: Well nourished female, appears stated age, no acute distress . HEENT: Normocephalic, atraummatic. RESPIRATORY: non labored breathing. CARDIOVASCULAR: RRR. 2+ DP/PT pulses, BCR all digits RLE. EXTREMITIES: RLE in flexed, externally rotated position. Diffuse tenderness around anterior and lateral hip and thigh. Able to flex/extend toes and ankle. NEUROLOGICAL: Sensation/motor intact in RLE femoral, tibial, sural, saphenous, SPN, DPN distributions. LABORATORY DATA, IMAGING STUDIES, MICROBIOLOGY: Please see below. DVT prophylaxis ordered?: Lovenox/SCDs ASSESSMENT: This is an 88 y/o female with a R proximal femur fracture, awaiting surgical fixation Plan: I had a long discussion with the patient, the hospitalist, and the anesthesiologist regarding her care. Her Hgb was 8.6 this morning. Given her cardiac history and concern for bleeding, it was determined that she would benefit by being transfused 2U PRBC for medical optimization, which she received today. The known mortality risk of delayed surgical treatment of proximal femur fractures versus the potential risk for postoperative bleeding were discussed at length with the patient and her family. The patient and her daughter expressed understanding with this risk and would prefer early surgical stabilization. Written informed consent was obtained for R proximal femur closed versus open r eduction and cephalmedullary nail fixation. Will proceed to OR when cleared by medicine and anesthesia teams. VS, I&O, 24H, Fishbone Vital Signs/I&O Vital Signs Date Time Temp Pulse Resp B/P (MAP) Pulse Ox O2 Delivery O2 Flow Rate FiO2 09/13/18 14:00 99.6 60 18 136/65 (88) 100 2.0 09/11/18 21:45 Room Air I&O- Last 24 Hours up to 6 AM 09/13/18 06:00 Intake Total 2160 ml Output Total 700 ml Balance 1460 ml Laboratory Data 24H LABS Laboratory Tests 2 09/13/18 05:55: Nucleated Red Blood Cells % (auto) 0.0, Anion Gap 7L, Glomerular Filtration Rate 42.5, Blood Urea Nitrogen 38H, Creatinine 1.27, Sodium Level 143, Potassium Level 3.9, Chloride Level 113H, Carbon Dioxide Level 23, Calcium Level 7.4L CBC/BMP Laboratory Tests 09/13/18 05:55 Red Blood Count 2.81 L, Mean Corpuscular Volume 98.9 H, Mean Corpuscular Hemoglobin 30.2, Mean Corpuscular Hemoglobin Concent 30.6 L, Red Cell Distribution Width 14.5, Calcium Level 7.4 L GHADA SHIPLEY MD Sep 13, 2018 16:15
[2018-09-13 16:37] LABS: FREE T4 1.11 NG/DL (0.76-1.46); THYROID STIMULATING HORMONE 1.12 uIU/ML (0.358-3.740)
--- NOTE | 2018-09-13 16:52 | CR ---
DATE OF CONSULTATION: 09/13/2018 SURGICAL CLEARANCE PRIMARY CARE PROVIDER: Dr. Mono Sahni SWING TYPE LATHE OPERATOR: Dr. Escobar, Orthopedics CHIEF COMPLAINT: Right hip pain after a fall. This is an 88-year-old female with multiple chronic medical conditions, came to the emergency room after having fallen. She was complaining of pain in her right hip. In the emergency room, she was assessed, x-rays were done, and she was found to have a right hip fracture due to a mechanical fall. She was admitted to the medical floor. She is on Brilinta anticoagulant, which was held. Orthopedics were consulted for surgical repair of the right hip. Dr. Escobar discussed with the daughter and patient the right hip surgery, open reduction internal fixation (ORIF). He reviewed with them that despite the fact that he would be making small incision that there would still be a risk of increased bleeding on Brilinta. They verbalized understanding and wished to proceed with the surgery. Patient's hemoglobin and hematocrit on admission was 10.2 and 31.9; this morning 8.[address] Escobar discussed with the patient that she would require two units of packed cells prior to surgery. Risks and benefits were reviewed and explained to the patient on transfusions. The patient and the family verbalized agreement and understanding. I obtained consent for the preoperative transfusions. They will be initiated. ALLERGIES: ASPIRIN. She has a history of hypertension with renal disease, hyperlipidemia for which she is on atorvastatin, vitamin D deficiency with a therapeutic vitamin D level 09/21, hypothyroidism - on levothyroxine replacement, restless leg syndrome, stage III chronic kidney disease, history of osteoporosis - intolerant of oral bisphosphonates, migraine prophylaxis - uses Topamax, chronic disc disease, history of Peoples's esophagus, history of pacemaker for sick sinus syndrome. PAST SURGICAL HISTORY: Pacemaker placement in 2010 for sick sinus syndrome. Appendectomy. Hysterectomy. Cardiac stents. Back surgeries times four. CARDIAC HISTORY: History of coronary artery disease, LAD stent placed 09/21, now on Brilinta antiplatelet therapy, which is currently on hold. Nuclear stress test 09/21 - ejection fraction 76%. No reversible ischemia. She is followed by Dr. Riley at [facility]. HOME MEDICATIONS: - hydrocodone/acetaminophen 5-325 one by mouth every 6 hours as needed for pain - potassium 10 mEq by mouth daily - Brilinta 90 mg by mouth twice a day, which is on hold, last dose 09/11/2018 at 9:00 a.m. - torsemide 10 mg by mouth daily - Dexilant 60 mg by mouth daily - flaxseed oil 1000 mg by mouth daily - nitroglycerin 0.4 mg sublingual as needed for chest pain. - TheraTears 0.25% solution two drops both eyes four times a day as needed for dry eyes - atorvastatin 10 mg by mouth daily - vitamin D3 1000 units by mouth daily - cyclobenzaprine 5 mg by mouth three times a day as needed muscle spasms - gabapentin 300 mg by mouth three times a day - levothyroxine 50 mcg by mouth daily - losartan 25 mg by mouth daily - metoprolol tartrate 25 mg by mouth twice a day - Mirapex 0.25 mg by mouth daily - Topamax 50 mg by mouth twice a day EKG showed paced rhythm. LABORATORY STUDIES: Initial white count was 13.3, currently white count is 8.7, hemoglobin 8.5, hematocrit 27.8, platelets are 190. She received two units of packed red cells. Electrolytes: Sodium is 143, potassium 3.9, chloride 113, CO2 is 23, BUN 38, creatinine 1.27, which is improved from her initial BUN of 73 and creatinine of 2.09 on admission, glucose 123, calcium 7.4, PT 14.9, INR 1.15, APTT 25.7. RADIOLOGY STUDIES: Chest x-ray: Lung sands are clear. Cardiac size is normal. Dual-chamber pacemaker entering from left, unchanged. Femur: Intertrochanteric fracture. No dislocation. FAMILY HISTORY: Noncontributory. SOCIAL HISTORY: She was living by herself. She does not smoke cigarettes. She does not drink alcohol. She does not use recreational drugs. REVIEW OF SYSTEMS: No complaint of headaches. No blurred or double vision. No fever, no chills, no tinnitus, no hoarseness, no difficulty swallowing. No lightheadedness. Breasts: No masses. Cardiovascular: No complaints of chest pain, shortness of breath, palpitations or edema. Respiratory: No chronic cough. No sputum production. No hemoptysis. No orthopnea. No wheeze. Gastrointestinal (GI): No complaints of nausea, vomiting, or diarrhea. No hematochezia. No melena. Genitourinary (): No hematuria, dysuria, or frequency. Musculoskeletal: Severe pain in the right hip. Endocrine: History of dyslipidemia, hypothyroidism. Hematological: Currently anemic secondary to mechanical fall. Neurological: History of restless legs. No history of seizures. No paralysis. Psychological: No anxiety, depression, or suicidal ideation. PHYSICAL EXAMINATION: An 88-year-old cooperative female, alert and oriented times three. Height 59 inches. Weight 69.5 kg. Body mass index (BMI) 30.9. Patient is alert and oriented times three. Pupils equal and react to light. Extraocular movements intact. Cornea and sclerae clear. Conjunctivae is normal. No facial asymmetry. Pharynx: Tongue and gums pink and moist. Tongue is midline. Neck is supple without lymphadenopathy. No thyromegaly. No goiter. Carotids 2+ without bruit. Chest is clear to auscultation without wheeze or retractions. Heart is regular. Grade 1/6 murmur. Abdomen is benign. Bowel sounds are positive. Genital/Rectal: Not done. Extremities show no cyanosis, clubbing or bilateral lower extremity edema. Peripheral pulses equal and palpable bilaterally. Skin is warm and dry. IMPRESSION/PLAN: Right hip fracture due to mechanical fall. The patient is on Brilinta which has been held since the morning of 09/11/2018, was her last dose. Typically this would be given 5-7 days for clearing. Explained and discussed with the patient and daughter the increased risk of bleeding, also discussed by Dr. Escobar with the family, patient and daughter. They wished to proceed with surgery. They verbalized agreement and understanding. Coronary artery disease. Most recent nuclear stress test 09/21 showed no reversible ischemia. No current complaints of chest pain, shortness of breath, or palpitations. EKG showed paced rhythm. Chronic kidney disease, stage III-IV. BUN and creatinine improved since receiving IV fluids. Hyperlipidemia. Continue atorvastatin. Chronic pain with degenerative disc disease. Hypertensive heart disease. Continue losartan, metoprolol. Will hold the diuretics secondary to the slightly decreased renal function. Hypothyroidism. On levothyroxine. Restless legs. Continue Mirapex. Vitamin D deficiency. Continue vitamin D supplement. Question of balance issues. Physical therapy (PT) to be aware as this may have impact on her rehabilitation. Patient is medically optimized for ORIF of the right hip pending improved hemoglobin and hematocrit.
[2018-09-13 18:41] LABS: HEMATOCRIT 40.6 % (36.0-47.0); HEMOGLOBIN 12.9 g/dl (12.0-15.5); MEAN CORPUSCULAR HEMOGLOBIN 30.4 pg (27.0-33.0); MEAN CORPUSCULAR HGB CONC 31.8 g/dl (32.0-36.5); MEAN CORPUSCULAR VOLUME 95.5 fl (80.0-96.0); PLATELET COUNT, AUTOMATED 174 10^3/uL (150-450); RED BLOOD COUNT 4.25 10^6/uL (4.00-5.40); WHITE BLOOD COUNT 15.1 10^3/uL (4.0-10.0)
[2018-09-13 22:00] VITALS: BP 127/62
[2018-09-14] MEDS: MORPHINE 10 MG/ML 1ML VIAL (J2270) IV PRN (03:44)
[2018-09-14] MEDS: LEVOTHYROXINE 50MCG TABLET (0.05MG) PO SCH (05:48)
[2018-09-14 06:00] VITALS: BP 120/63
[2018-09-14 07:03] LABS: HEMATOCRIT 39.4 % (36.0-47.0); HEMOGLOBIN 12.5 g/dl (12.0-15.5); MEAN CORPUSCULAR HEMOGLOBIN 30.5 pg (27.0-33.0); MEAN CORPUSCULAR HGB CONC 31.7 g/dl (32.0-36.5); MEAN CORPUSCULAR VOLUME 96.1 fl (80.0-96.0); PLATELET COUNT, AUTOMATED 149 10^3/uL (150-450); WHITE BLOOD COUNT 16.5 10^3/uL (4.0-10.0)
[2018-09-14 07:21] LABS: CALCIUM LEVEL 7.8 MG/DL (8.8-10.2); CREATININE FOR GFR 1.4 MG/DL (0.55-1.30)
[2018-09-14] MEDS: CYCLOBENZAPRINE 5MG TABLET PO PRN (07:46)
[2018-09-14] MEDS: PANTOPRAZOLE 40MG TAB (PROTONIX) PO SCH (07:46)
[2018-09-14] MEDS: PERCOCET 5MG/325MG TAB PO PRN (07:46)
[2018-09-14 08:13] VITALS: BP 120/66
--- NOTE | 2018-09-14 08:52 | IPN ---
DATE: 09/14/2018 Aria is seen on [address] [facility]. She is going for open reduction internal fixation (ORIF) today. She has been off her Brilinta now for about 4-1/2 days. Her bleeding risk is significantly reduced. She has no chest pain or shortness of breath. Her white count is up a bit, but there have been no fevers. PHYSICAL EXAMINATION: Blood pressure 120/63. Afebrile. 98.4 degrees. General Appearance: She is lying in bed sleeping after receiving morphine. She arouses easily. Denies chest pain or shortness of breath. HEENT: Unremarkable. Lungs: Clear. Heart: Regular rhythm. Abdomen: Soft. Nontender. No peripheral edema. LABS: White count 16.5, hemoglobin 12.1, platelets 149. Sodium 134, potassium 4.0, BUN 31, creatinine 1.4. IMPRESSION: 1. Hip fracture. Going to the OR today. Surgical risk is acceptable. She has been off her Brilinta for over 4 days at this point so bleeding risk is reduced. I think she should be able to tolerate the procedure. 2. Coronary artery disease. Most recent nuclear stress on 09/21/2018 showed reversible ischemia. She is followed by [facility] as an outpatient. I have not consulted them as her cardiac risk based on most recent stress test seems to be acceptable for the proposed procedure. Should she develop any cardiac issues, Dr. Riley has seen her in the past. 3. Chronic kidney disease. Renal function is improved with IV hydration. 4. Leukocytosis. No sign of active infection. Followup CBC ordered for tomorrow. 5. Hypothyroidism. Stable on current dose of levothyroxine. 6. Hypertensive heart disease. Blood pressure well controlled on her current regimen. 7. Hyperlipidemia. Continue her atorvastatin. 8. Restless leg syndrome. Continue Mirapex. 9. Balance issues. Physical therapy needs to be aware that she has balance issues which could complicate rehabilitation. Dr. Bambi Henao will be assuming her care in the morning.
[2018-09-14] MEDS: SENOKOT S TAB PO SCH ×2 (09:00→22:02)
[2018-09-14] MEDS: TOPIRAMATE (TopAMAX) 25 MG TAB PO SCH ×2 (09:00→22:02)
[2018-09-14] MEDS: VITAMIN D 1,000 INTERNATIONAL UNITS TABLET PO SCH (09:00)
[2018-09-14] MEDS: PRAMIPEXOLE 0.25 MG TAB PO SCH (09:00)
[2018-09-14] MEDS: METOPROLOL TART 25 MG TABLET PO SCH ×2 (09:00→22:03)
[2018-09-14] MEDS: ATORVASTATIN 10 MG TAB PO SCH (09:00)
[2018-09-14] MEDS: GABAPENTIN 300 MG CAP PO SCH ×3 (09:00→22:02)
[2018-09-14] MEDS: PREVNAR 13 VACCINE SYRINGE (CPT CODE:90670) IM ONE (09:00)
[2018-09-14] MEDS: MORPHINE 4 MG/ML 1ML VIAL/SYRINGE (J2270) IV PRN ×2 (09:45→17:17)
[2018-09-14 14:10] VITALS: BP 124/58
[2018-09-14] MEDS ORDERED: KETAMINE HCL 200 MG/20 ML VIAL As Ordered ONE (14:57)
[2018-09-14] MEDS ORDERED: fentaNYL 100 MCG/2 ML INJECTION (J3010) As Ordered ONE ×2 (14:58→20:11)
[2018-09-14] MEDS ORDERED: MIDAZOLAM INJ 2 MG/2 ML VIAL (J2250) As Ordered ONE (14:58)
[2018-09-14] MEDS: NS 1,000 ML IV SCH (16:22)
[2018-09-14] MEDS ORDERED: MORPHINE 10 MG/ML 1ML VIAL (J2270) As Ordered ONE (17:14)
[2018-09-14] MEDS ORDERED: ceFAZolin 1GM INJ (J0690 PER 500MG) As Ordered ONE (17:27)
[2018-09-14] MEDS ORDERED: PROPOFOL 200 MG/20 ML VIAL As Ordered ONE (17:56)
[2018-09-14] MEDS ORDERED: ROCURONIUM BROMIDE 50 MG/5 ML VIAL As Ordered ONE (17:56)
[2018-09-14] MEDS ORDERED: HYDROmorphone HCL 2 MG/ML 1ML VIAL (J1170) As Ordered ONE (19:28)
[2018-09-14] MEDS ORDERED: ONDANSETRON 4MG/2ML VIAL (J2405) As Ordered ONE (19:37)
[2018-09-14] MEDS ORDERED: dexameTHASONE 4 MG/ML 1ML VIAL (J1100) As Ordered ONE (19:37)
[2018-09-14] MEDS ORDERED: SUGAMMADEX SODIUM 500 MG/5 ML VIAL (BRIDION) As Ordered ONE (19:40)
[2018-09-14] MEDS: fentaNYL 100 MCG/2 ML INJECTION (J3010) IV PRN ×2 (20:14→20:19)
[2018-09-14] MEDS ORDERED: ONDANSETRON 4MG/2ML VIAL (J2405) IV PRN (20:15)
[2018-09-14] MEDS ORDERED: MORPHINE 4 MG/ML 1ML VIAL/SYRINGE (J2270) IV PRN (20:15)
[2018-09-14] MEDS ORDERED: PERCOCET 5MG/325MG TAB PO PRN (20:15)
[2018-09-14] MEDS ORDERED: LR 1,000 ML IV SCH (20:15)
[2018-09-14] MEDS ORDERED: MORPHINE 10 MG/ML 1ML VIAL (J2270) IV PRN (20:15)
[2018-09-14 21:30] VITALS: BP 161/72
[2018-09-14 22:00] VITALS: BP 136/60
[2018-09-14] MEDS: ACETAMINOPHEN TAB 650MG DOSE (2X325MG) PO PRN (22:04)
[2018-09-15] VITALS (7 sets, daily range): BP systolic 80–139; BP diastolic 40–58
[2018-09-15] MEDS ORDERED: NS 1,000 ML IV ONE (02:15)
[2018-09-15] MEDS: ceFAZolin SOD 1 GM in D5W MINI-BAG PLUS 50 ML IV SCH ×2 (02:59→10:03)
[2018-09-15] MEDS: LEVOTHYROXINE 50MCG TABLET (0.05MG) PO SCH (06:00)
[2018-09-15 06:42] LABS: HEMATOCRIT 30.7 % (36.0-47.0); MEAN CORPUSCULAR HEMOGLOBIN 30.4 pg (27.0-33.0); MEAN CORPUSCULAR HGB CONC 32.2 g/dl (32.0-36.5); MEAN CORPUSCULAR VOLUME 94.2 fl (80.0-96.0); PLATELET COUNT, AUTOMATED 133 10^3/uL (150-450); RED BLOOD COUNT 3.26 10^6/uL (4.00-5.40)
[2018-09-15 06:54] LABS: HEMOGLOBIN 9.9 g/dl (12.0-15.5)
[2018-09-15 07:01] LABS: CALCIUM LEVEL 7.8 MG/DL (8.8-10.2); CREATININE FOR GFR 1.52 MG/DL (0.55-1.30); GLOMERULAR FILTRATION RATE 34.5 (>32); POTASSIUM SERUM 4.2 MEQ/L (3.5-5.1)
--- NOTE | 2018-09-15 08:59 | REP ---
PORTABLE RIGHT HIP, TWO VIEWS: HISTORY: Fracture. COMPARISON: 09/11/2018. The patient is status-post ORIF of an intertrochanteric fracture. An intramedullary gucci and gamma nail are present. There is no dislocation. There is minimal narrowing of the joint space. Subcutaneous air and surgical lashonda are present in the overlying soft tissue. IMPRESSION:The patient is status-post ORIF of an intertrochanteric fracture. There is anatomic alignment. Electronically Signed by Alfonzo Roblero MD 09/15/2018 09:52 A
[2018-09-15] MEDS: MIRALAX *UNIT DOSE* 17GM PACKET PO SCH (09:00)
[2018-09-15] MEDS: METOPROLOL TART 25 MG TABLET PO SCH ×2 (09:00→21:53)
--- NOTE | 2018-09-15 09:01 | REP ---
RIGHT HIP, SIX VIEWS: HISTORY: Fracture. COMPARISON: 09/11/2018. Six portable radiographs were obtained with a C-arm. Sequential radiographs demonstrate the patient to be status post ORIF of an intertrochanteric fracture. An intramedullary gucci and gamma nail are present. Fluoro time 1 minute 34 seconds. IMPRESSION: The patient is status post ORIF of an intertrochanteric fracture. There is anatomic alignment. Electronically Signed by Alfonzo Roblero MD 09/15/2018 09:52 A
[2018-09-15] MEDS: VITAMIN D 1,000 INTERNATIONAL UNITS TABLET PO SCH (10:03)
[2018-09-15] MEDS: PANTOPRAZOLE 40MG TAB (PROTONIX) PO SCH (10:03)
[2018-09-15] MEDS: ATORVASTATIN 10 MG TAB PO SCH (10:03)
[2018-09-15] MEDS: TOPIRAMATE (TopAMAX) 25 MG TAB PO SCH ×2 (10:03→21:54)
[2018-09-15] MEDS: GABAPENTIN 300 MG CAP PO SCH ×3 (10:03→21:53)
[2018-09-15] MEDS: SENOKOT S TAB PO SCH ×2 (10:03→21:00)
[2018-09-15] MEDS: PRAMIPEXOLE 0.25 MG TAB PO SCH (10:03)
--- NOTE | 2018-09-15 10:24 | RO ---
DATE OF SURGERY: 09/14/2018 PREOPERATIVE DIAGNOSIS: Right intertrochanteric hip fracture. POSTOPERATIVE DIAGNOSIS: Right intertrochanteric hip fracture. PROCEDURE PERFORMED: Right hip closed reduction and cephalomedullary nailing. PRIMARY SURGEON: Dr. Joce Truong IMPREGNATING HELPER: Shea Luna ANESTHESIA: General. ESTIMATED BLOOD LOSS: 100 mL. IMPLANTS: Synthes trochanteric fixation nail short. No specimens removed. No blood administered. No complications. DESCRIPTION OF PROCEDURE: Technical procedure: The patient was identified in the preoperative holding area by name, medical record number, date of . The surgical site was marked in consultation with the patient. She was evaluated by anesthesia. When she was ready, she was brought back to the operative suite on a gurney. General anesthesia was induced, and she was placed on the operating room (OR) table, appropriately padding all bony prominences. She was placed on the fracture table, and at this point a final time-out was performed, and all in the room agreed. She was given intravenous (IV) antibiotics prior to incision. I began the procedure by performing the typical closed reduction with axial traction, gentle internal rotation, and adduction. Fluoroscopic views at this time confirmed satisfactory closed reduction. Next, the right lower extremity was sterilely prepped and draped in the usual fashion, and I made the typical approach for nailing, making a longitudinal dissection proximal to the greater trochanter, dissecting down through the skin and subcutaneous fat. I next split the iliotibial band area and identified the tip of the greater trochanter, inserting the guidewire just lateral to the tip of the greater trochanter. I followed this up with the entry reamer, and I did use the 12.5-mm reamer, as she did have a tight canal. I inserted the short trochanteric fixation nail and inserted the guidewire for the helical blade, confirming satisfactory position in AP and lateral and oblique views. Next, the helical blade was sized, pre-reamed, and inserted with satisfactory fixation.I did back off the locking portion of the proximal nail to permit guided compression across the fracture site. Next, the distal interlock was placed through a stab incision in the lateral leg using the outrigger guide, achieving a good satisfactory fixation. Fluoroscopic views of the entire construct in AP, lateral, oblique, and live fluoroscopic imaging confirmed satisfactory reduction and internal fixation. The wounds were copiously irrigated and closed in layers. Sterile dressings were applied, and the patient was brought out of anesthesia. RUBI
[2018-09-15] MEDS: ACETAMINOPHEN TAB 650MG DOSE (2X325MG) PO PRN (13:40)
[2018-09-15] MEDS: PERCOCET 5MG/325MG TAB PO PRN (14:39)
--- NOTE | 2018-09-15 19:45 | IPN ---
DATE: 09/15/2018 SUBJECTIVE: Patient was seen and examined in the room today. Patient does not have acute complaints. In the call center dispatcher the patient was found to have hypotension. OBJECTIVE: VITAL SIGNS: Temperature 98.1, pulse 59, respirations 17, blood pressure 99/47, pulse ox 96% on room air. GENERAL: No signs of acute distress. Alert and awake. HEENT: Normocephalic atraumatic. CARDIOVASCULAR: Positive S1, S2. Regular rate. LUNGS: Clear to auscultation bilaterally. ABDOMEN: Soft and nontender. EXTREMITIES: No edema. LABORATORY DATA: WBC 12, hemoglobin 9.9, hematocrit 30.7, platelet count 133, sodium 143, potassium 4.2, chloride 115, carbon dioxide 18, BUN 28, creatinine 0.52, GFR 34.5, fasting glucose 176, calcium 7.8. ASSESSMENT AND PLAN: 1. Right hip fracture. The patient had a hip replacement on 09/14/2018. Orthopedic team consult appreciate their assistance. 2. Coronary artery disease. A nuclear stress was performed on 09/2017 no reversible ischemia on Lipitor. Restart Brilinta. 3. Chronic kidney disease. Previously the patient had acute on chronic kidney disease, improved with IV support. Continue to follow. 4. Hypothyroidism on Synthroid. 5. Hypertension on Metoprolol. 6. DVT prophylaxis. BRETT compression.
[2018-09-15] MEDS: TICAGRELOR 90 MG TABLET (BRILINTA) PO SCH (21:53)
[2018-09-16 02:00] VITALS: BP 113/55
[2018-09-16 06:00] VITALS: BP 110/58
[2018-09-16] MEDS: PERCOCET 5MG/325MG TAB PO PRN ×3 (06:11→18:20)
[2018-09-16] MEDS: LEVOTHYROXINE 50MCG TABLET (0.05MG) PO SCH (06:11)
[2018-09-16 06:42] LABS: HEMATOCRIT 29.6 % (36.0-47.0); HEMOGLOBIN 9.4 g/dl (12.0-15.5); MEAN CORPUSCULAR HEMOGLOBIN 30.4 pg (27.0-33.0); MEAN CORPUSCULAR HGB CONC 31.8 g/dl (32.0-36.5); MEAN CORPUSCULAR VOLUME 95.8 fl (80.0-96.0); PLATELET COUNT, AUTOMATED 145 10^3/uL (150-450); RED BLOOD COUNT 3.09 10^6/uL (4.00-5.40)
[2018-09-16 06:57] LABS: CALCIUM LEVEL 7.7 MG/DL (8.8-10.2); CREATININE FOR GFR 1.33 MG/DL (0.55-1.30); GLOMERULAR FILTRATION RATE 40.3 (>32); POTASSIUM SERUM 3.8 MEQ/L (3.5-5.1)
[2018-09-16] MEDS ORDERED: PERC5TAB12 PO (07:20)
[2018-09-16] MEDS: MIRALAX *UNIT DOSE* 17GM PACKET PO SCH (09:00)
[2018-09-16] MEDS: TOPIRAMATE (TopAMAX) 25 MG TAB PO SCH ×2 (10:14→23:30)
[2018-09-16] MEDS: ATORVASTATIN 10 MG TAB PO SCH (10:15)
[2018-09-16] MEDS: PANTOPRAZOLE 40MG TAB (PROTONIX) PO SCH (10:15)
[2018-09-16] MEDS: VITAMIN D 1,000 INTERNATIONAL UNITS TABLET PO SCH (10:15)
[2018-09-16] MEDS: SENOKOT S TAB PO SCH ×2 (10:15→23:31)
[2018-09-16] MEDS: TICAGRELOR 90 MG TABLET (BRILINTA) PO SCH ×2 (10:15→23:30)
[2018-09-16] MEDS: GABAPENTIN 300 MG CAP PO SCH ×3 (10:15→23:31)
[2018-09-16] MEDS: PRAMIPEXOLE 0.25 MG TAB PO SCH (10:30)
[2018-09-16 10:35] VITALS: BP 103/56
[2018-09-16] MEDS: METOPROLOL TART 25 MG TABLET PO SCH ×2 (11:02→21:00)
[2018-09-16 14:00] VITALS: BP 100/94
[2018-09-16] MEDS ORDERED: PREVNAR 13 VACCINE SYRINGE (CPT CODE:90670) IM ONE (18:00)
--- NOTE | 2018-09-16 18:53 | IPNPDOC ---
Text Note Date of Service The patient was seen on 09/16/18. NOTE SUBJECTIVE: Patient was seen and examined in the room today. Patient complains about discomfort at right hip. She has good oral intake. No fever or chill. OBJECTIVE: VITAL SIGNS: Listed below. GENERAL: No signs of acute distress. Alert and awake. HEENT: Normocephalic atraumatic. CARDIOVASCULAR: Positive S1, S2. Regular rate. LUNGS: Clear to auscultation bilaterally. ABDOMEN: Soft and nontender. EXTREMITIES: No edema. LABORATORY DATA: Listed below. ASSESSMENT AND PLAN: #. Right hip fracture. - The patient had a hip replacement on 09/14/2018. Orthopedic team consult sinan reciate their assistance. - Continue physical therapy. #. Coronary artery disease. - A nuclear stress was performed on 09/2017 no reversible ischemia on Lipitor. On Brilinta. #. Chronic kidney disease. - Previously the patient had acute on chronic kidney disease, improved with IV support. Continue to follow. #. Hypothyroidism on Synthroid. #. Hypertension on Metoprolol. #. DVT prophylaxis. BRETT compression. VS,Fishbone, I+O VS, Fishbone, I+O Laboratory Tests 09/16/18 06:30 Red Blood Count 3.09 L, Mean Corpuscular Volume 95.8, Mean Corpuscular Hemoglobin 30.4, Mean Corpuscular Hemoglobin Concent 31.8 L, Red Cell Distribution Width 15.4 H, Calcium Level 7.7 L Vital Signs Date Time Temp Pulse Resp B/P (MAP) Pulse Ox O2 Delivery O2 Flow Rate FiO2 09/16/18 18:20 16 09/16/18 14:00 97.1 60 100/94 (96) 94 09/14/18 20:20 10 09/11/18 21:45 Room Air I&O- Last 24 Hours up to 6 AM 09/16/18 06:00 Intake Total 1640 ml Output Total 0 ml Balance 1640 ml ANGELITO HERRMANN DO Sep 16, 2018 18:53
[2018-09-16] MEDS: PREVNAR 13 VACCINE SYRINGE (CPT CODE:90670) IM ONE (20:09)
[2018-09-16 22:00] VITALS: BP 103/51
[2018-09-17] MEDS: PERCOCET 5MG/325MG TAB PO PRN (05:31)
[2018-09-17] MEDS: LEVOTHYROXINE 50MCG TABLET (0.05MG) PO SCH (05:31)
[2018-09-17 06:00] VITALS: BP 109/61
[2018-09-17 07:12] LABS: HEMATOCRIT 26.7 % (36.0-47.0); HEMOGLOBIN 8.4 g/dl (12.0-15.5); MEAN CORPUSCULAR HEMOGLOBIN 30.1 pg (27.0-33.0); MEAN CORPUSCULAR HGB CONC 31.5 g/dl (32.0-36.5); MEAN CORPUSCULAR VOLUME 95.7 fl (80.0-96.0); PLATELET COUNT, AUTOMATED 144 10^3/uL (150-450); RED BLOOD COUNT 2.79 10^6/uL (4.00-5.40); WHITE BLOOD COUNT 9.3 10^3/uL (4.0-10.0)
[2018-09-17 07:34] LABS: CALCIUM LEVEL 7.7 MG/DL (8.8-10.2); CREATININE FOR GFR 1.13 MG/DL (0.55-1.30); GLOMERULAR FILTRATION RATE 48.6 (>32); POTASSIUM SERUM 3.5 MEQ/L (3.5-5.1)
[2018-09-17 08:58] VITALS: BP 109/61
[2018-09-17] MEDS: SENOKOT S TAB PO SCH (08:58)
[2018-09-17] MEDS: METOPROLOL TART 25 MG TABLET PO SCH (08:58)
[2018-09-17] MEDS: TOPIRAMATE (TopAMAX) 25 MG TAB PO SCH (08:58)
[2018-09-17] MEDS: TICAGRELOR 90 MG TABLET (BRILINTA) PO SCH (08:58)
[2018-09-17] MEDS: PRAMIPEXOLE 0.25 MG TAB PO SCH (08:58)
[2018-09-17] MEDS: GABAPENTIN 300 MG CAP PO SCH (08:58)
[2018-09-17] MEDS: MIRALAX *UNIT DOSE* 17GM PACKET PO SCH (08:58)
[2018-09-17] MEDS: ATORVASTATIN 10 MG TAB PO SCH (08:58)
[2018-09-17] MEDS: PANTOPRAZOLE 40MG TAB (PROTONIX) PO SCH (08:58)
[2018-09-17] MEDS: VITAMIN D 1,000 INTERNATIONAL UNITS TABLET PO SCH (08:58)
--- NOTE | 2018-09-22 20:37 | DSES ---
DATE OF ADMISSION: 09/11/2018 DATE OF DISCHARGE: 09/17/2018 PRIMARY CARE PROVIDER: Mono Sahni MD CONSULTANTS: Orthopedic surgery. DISCHARGE DIAGNOSES: 1. Right hip fracture, status post surgical repair. 2. Coronary artery disease. 3. Chronic kidney disease. 4. Hypothyroidism. 5. Hypertension. HOSPITALIZATION COURSE: The patient is 89-year-old female presented to the [facility] on September 11, 2018 after a fall resulting in left hip pain. Patient was found to have a right hip fracture. Patient admitted under hospitalist service. Orthopedic consulted. Patient's Brilinta is on hold since admission for surgery preparation. Patient had a right hip repair on 09/14/2018 by orthopedic team. Patient monitored closely after surgery. Later Brilinta was reintroduced. No sign of active bleeding noted. Patient continued to work with physical therapy. On 09/17/2018, patient discharged from [facility] and patient was transferred to [facility] for subacute rehabilitation. Patient recommended to followup with primary care provider in 1 to 2 weeks. Patient should also followup with orthopedic team at the scheduled time. VITAL SIGNS ON DATE OF DISCHARGE: Temperature is 98.6, pulse 68, respirations 19, blood pressure 109/61. Pulse oximetry 98% on room air. LABORATORY DATA: WBC 9.3, hemoglobin 8.4, hematocrit is 26.7. Platelet count is 144. Sodium is 143, potassium 3.5, chloride is 115, carbon dioxide 19, BUN 22, creatinine 1.13. GFR is down 48.6. Fasting glucose 93, calcium 7.7. Blood transfusion two packed units on 09/13/2018. IMAGING STUDIES: Right hip x-ray on 09/11/2018 showed intertrochanteric fracture. No dislocation. Right femur x-ray on 09/11/2018 showed intertrochanteric fracture. No dislocation. Chest x-ray on 09/11/2018 showed negative chest with patient supine. DISCHARGE MEDICATIONS: - Percocet 1 tablet by mouth every 4 hours as needed - atorvastatin 10 mg by mouth daily - vitamin D3 1000 units by mouth daily - cyclobenzaprine 5 mg by mouth three times a day as needed for muscle spasm - Dexilant 60 mg by mouth daily - gabapentin 300 mg by mouth three times a day - Synthroid 50 mcg by mouth daily - metoprolol tartrate 25 mg by mouth twice a day - potassium chloride 10 mEq by mouth daily - Mirapex 0.25 mg by mouth daily - Brilinta 90 mg by mouth twice a day - Topiramate 50 mg by mouth twice a day DISCHARGE INSTRUCTIONS: Discontinue lines. Discharge patient to [facility] for subacute rehabilitation. Activity per rehabilitation instructions. Low salt diet as tolerated. Patient should followup with primary care provider in one to two weeks. The patient should followup with orthopedic surgery at the scheduled time. Discharge condition: Fair. Discharge time: Greater than 30 minutes.
== END 2018-09-17 12:10 | DRG 481 ==
LOC: M ED 19:05 → M ED INP 22:41 → M MS5PR 09-12 00:50
PROVIDERS: ADMIT Hospitalist; ATTEND Internal Medicine
PROC: 30233N1 Transfusion of Nonautologous Red Blood Cells into Peripheral Vein, Percutaneous Approach (ICD-10-PCS; 2018-09-13)
PROC: 0QS606Z Reposition Right Upper Femur with Intramedullary Internal Fixation Device, Open Approach (ICD-10-PCS; principal; 2018-09-14 18:00)
DX: S72.141A Displaced intertrochanteric fracture of right femur, initial encounter for closed fracture (principal); N17.9 Acute kidney failure, unspecified; I25.10 Atherosclerotic heart disease of native coronary artery without angina pectoris; I12.9 Hypertensive chronic kidney disease with stage 1 through stage 4 chronic kidney disease, or unspecified chronic kidney disease; E78.5 Hyperlipidemia, unspecified; E55.9 Vitamin D deficiency, unspecified; E03.9 Hypothyroidism, unspecified; G25.81 Restless legs syndrome; M54.5 Low back pain; M81.0 Age-related osteoporosis without current pathological fracture; R27.0 Ataxia, unspecified; K22.70 Barrett's esophagus without dysplasia; N18.3 Chronic kidney disease, stage 3 (moderate); Z95.0 Presence of cardiac pacemaker; Z90.49 Acquired absence of other specified parts of digestive tract; Z95.5 Presence of coronary angioplasty implant and graft; Z90.710 Acquired absence of both cervix and uterus; Z88.6 Allergy status to analgesic agent; Z79.899 Other long term (current) drug therapy; Z79.02 Long term (current) use of antithrombotics/antiplatelets; W18.09XA Striking against other object with subsequent fall, initial encounter; Y92.019 Unspecified place in single-family (private) house as the place of occurrence of the external cause

== ENCOUNTER → 2018-09-22 | Outpatient (REF) ==
[~2018-09-22] MED LIST changes: +FLAX10002 PO; +NITR0.4S14 SL; +PERC5TAB12 PO; +POTA10CA32 PO; +THERSOL2 OU; +TOPI50TA9 PO
[2018-09-22 08:37] LABS: HEMATOCRIT 26.7 % (36.0-47.0); HEMOGLOBIN 8.3 g/dl (12.0-15.5); MEAN CORPUSCULAR HEMOGLOBIN 30.2 pg (27.0-33.0); MEAN CORPUSCULAR HGB CONC 31.1 g/dl (32.0-36.5); MEAN CORPUSCULAR VOLUME 97.1 fl (80.0-96.0); PLATELET COUNT, AUTOMATED 264 10^3/uL (150-450); RED BLOOD COUNT 2.75 10^6/uL (4.00-5.40); WHITE BLOOD COUNT 8.1 10^3/uL (4.0-10.0)
[2018-09-22 08:50] LABS: CALCIUM LEVEL 7.5 MG/DL (8.8-10.2); CREATININE FOR GFR 0.98 MG/DL (0.55-1.30); GLOMERULAR FILTRATION RATE 57.3 (>32); POTASSIUM SERUM 3.9 MEQ/L (3.5-5.1)
== END ==
LOC: SKLAB5 07:59
PROVIDERS: ATTEND Family Medicine
DX: D64.9 Anemia, unspecified (principal); N18.3 Chronic kidney disease, stage 3 (moderate)

== ENCOUNTER → 2018-10-01 | Outpatient (REF) ==
[2018-10-01 08:42] LABS: HEMATOCRIT 28.9 % (36.0-47.0); HEMOGLOBIN 9.1 g/dl (12.0-15.5); MEAN CORPUSCULAR HEMOGLOBIN 30.7 pg (27.0-33.0); MEAN CORPUSCULAR HGB CONC 31.5 g/dl (32.0-36.5); MEAN CORPUSCULAR VOLUME 97.6 fl (80.0-96.0); PLATELET COUNT, AUTOMATED 482 10^3/uL (150-450); RED BLOOD COUNT 2.96 10^6/uL (4.00-5.40)
[2018-10-01 09:30] LABS: BLOOD UREA NITROGEN 12 MG/DL (7-18); CARBON DIOXIDE LEVEL 18 MEQ/L (21-32); CHLORIDE LEVEL 115 MEQ/L (98-107); CREATININE FOR GFR 0.94 MG/DL (0.55-1.30); GLOMERULAR FILTRATION RATE > 60.0 (>32); GLUCOSE, FASTING 90 MG/DL (70-100); POTASSIUM SERUM 4.1 MEQ/L (3.5-5.1); SODIUM LEVEL 142 MEQ/L (136-145)
== END ==
LOC: SKLAB5 08:21
PROVIDERS: ATTEND Family Medicine
DX: D64.9 Anemia, unspecified (principal)

== ENCOUNTER → 2018-10-08 | Outpatient (REF) ==
[~2018-10-08] MED LIST changes: -/FENO48TA OR; +TRIC1TAB OR
[2018-10-08 09:24] LABS: HEMATOCRIT 30.1 % (36.0-47.0); HEMOGLOBIN 9.4 g/dl (12.0-15.5); MEAN CORPUSCULAR HEMOGLOBIN 30.5 pg (27.0-33.0); MEAN CORPUSCULAR HGB CONC 31.2 g/dl (32.0-36.5); MEAN CORPUSCULAR VOLUME 97.7 fl (80.0-96.0); PLATELET COUNT, AUTOMATED 293 10^3/uL (150-450); RED BLOOD COUNT 3.08 10^6/uL (4.00-5.40); WHITE BLOOD COUNT 6.2 10^3/uL (4.0-10.0)
[2018-10-08 09:48] LABS: CALCIUM LEVEL 8.3 MG/DL (8.8-10.2); CREATININE FOR GFR 1.13 MG/DL (0.55-1.30); GLOMERULAR FILTRATION RATE 48.6 (>32); POTASSIUM SERUM 3.4 MEQ/L (3.5-5.1)
== END ==
LOC: SKLAB5 07:59
PROVIDERS: ATTEND Family Medicine
DX: I10 Essential (primary) hypertension (principal)

== ENCOUNTER → 2018-10-15 | Outpatient (REF) ==
[2018-10-15 08:16] LABS: HEMATOCRIT 33.1 % (36.0-47.0); HEMOGLOBIN 10.3 g/dl (12.0-15.5); MEAN CORPUSCULAR HEMOGLOBIN 30.7 pg (27.0-33.0); MEAN CORPUSCULAR HGB CONC 31.1 g/dl (32.0-36.5); MEAN CORPUSCULAR VOLUME 98.5 fl (80.0-96.0); PLATELET COUNT, AUTOMATED 267 10^3/uL (150-450); RED BLOOD COUNT 3.36 10^6/uL (4.00-5.40); WHITE BLOOD COUNT 6.4 10^3/uL (4.0-10.0)
[2018-10-15 08:42] LABS: CALCIUM LEVEL 9.2 MG/DL (8.8-10.2); CREATININE FOR GFR 1.32 MG/DL (0.55-1.30); GLOMERULAR FILTRATION RATE 40.6 (>32); POTASSIUM SERUM 3.8 MEQ/L (3.5-5.1)
== END ==
LOC: SKLAB5 08:03
PROVIDERS: ATTEND Family Medicine
DX: I10 Essential (primary) hypertension (principal)

== ENCOUNTER → 2019-01-26 | Outpatient (REF) | payer MEDICARE, MEDICAID ==
[2019-01-26 10:19] LABS: HEMATOCRIT 37.5 % (36.0-47.0); MEAN CORPUSCULAR VOLUME 96.9 fl (80.0-96.0); PLATELET COUNT, AUTOMATED 250 10^3/uL (150-450); RED BLOOD COUNT 3.87 10^6/uL (4.00-5.40); WHITE BLOOD COUNT 6.1 10^3/uL (4.0-10.0)
[2019-01-26 10:49] LABS: ALBUMIN 3.2 GM/DL (3.2-5.2); BILIRUBIN,TOTAL 0.4 MG/DL (0.2-1.0); CHOLESTEROL RISK RATIO 3.152 (<5); CREATININE FOR GFR 1.34 MG/DL (0.55-1.30); GLOMERULAR FILTRATION RATE 39.9 (>32); MAGNESIUM LEVEL 2.4 MG/DL (1.8-2.4); POTASSIUM SERUM 3.9 MEQ/L (3.5-5.1); TOTAL PROTEIN 7.5 GM/DL (6.4-8.2)
[2019-01-26 10:55] LABS: PTH INTACT 73.1 PG/ML (18.5-88.0)
== END ==
LOC: M SFHCPLAZ 08:24
PROVIDERS: ATTEND Internal Medicine
DX: N18.3 Chronic kidney disease, stage 3 (moderate) (principal); I12.9 Hypertensive chronic kidney disease with stage 1 through stage 4 chronic kidney disease, or unspecified chronic kidney disease; E78.00 Pure hypercholesterolemia, unspecified

== ENCOUNTER → 2019-07-30 | Outpatient (CLI) | payer MEDICARE, MEDICAID ==
[2019-07-30 10:50] LABS: ALBUMIN 3.2 GM/DL (3.2-5.2); BILIRUBIN,TOTAL 0.5 MG/DL (0.2-1.0); CREATININE FOR GFR 1.64 MG/DL (0.55-1.30); GLOMERULAR FILTRATION RATE 31.5 (>32); MAGNESIUM LEVEL 2.7 MG/DL (1.8-2.4); POTASSIUM SERUM 3.7 MEQ/L (3.5-5.1); TOTAL PROTEIN 7.5 GM/DL (6.4-8.2)
[2019-07-30 11:06] LABS: PTH INTACT 100.1 PG/ML (18.5-88.0); TOTAL 25(OH) VITAMIN D 52.3 NG/ML (30.0-100.0)
== END ==
LOC: M PLALAB 08:20
PROVIDERS: ATTEND Internal Medicine
DX: I12.9 Hypertensive chronic kidney disease with stage 1 through stage 4 chronic kidney disease, or unspecified chronic kidney disease (principal); G25.81 Restless legs syndrome; E55.9 Vitamin D deficiency, unspecified; N18.3 Chronic kidney disease, stage 3 (moderate)

== ENCOUNTER → 2019-08-06 | Outpatient (CLI) | payer MEDICARE ==
--- NOTE | 2019-08-06 08:14 | REPVR ---
PROCEDURE INFORMATION: Exam: CT Head Without Contrast Exam date and time: 08/06/2019 8:03 AM Age: 89 years old Clinical indication: Pain; Headache; Additional info: Recent head trauma TECHNIQUE: Imaging protocol: Computed tomography of the head without contrast. Radiation optimization: All CT scans at this facility use at least one of these dose optimization techniques: automated exposure control; mA and/or kV adjustment per patient size (includes targeted exams where dose is matched to clinical indication); or iterative reconstruction. COMPARISON: No relevant prior studies available. FINDINGS: Brain: There is no acute intracranial hemorrhage or mass effect. Moderate diffuse volume loss is within the range of normal for patient age. There are small vessel ischemic changes within the periventricular and subcortical white matter, but the normal aguero-white matter delineation is maintained. Ventricles: Normal. No ventriculomegaly. Bones/joints: Unremarkable. No acute fracture. Sinuses: Visualized sinuses are unremarkable. No fluid levels. Mastoid air cells: Visualized mastoid air cells are well aerated. Soft tissues: Unremarkable. IMPRESSION: No acute hemorrhage or calvarial fracture. Electronically signed by: Shital Martin On 08/06/2019 08:14:50 AM
== END ==
LOC: M RAD 07:56
PROVIDERS: ATTEND Internal Medicine
DX: S09.90XA Unspecified injury of head, initial encounter (principal); W18.30XA Fall on same level, unspecified, initial encounter; Y92.009 Unspecified place in unspecified non-institutional (private) residence as the place of occurrence of the external cause

== ENCOUNTER 2019-12-17 15:45 | Inpatient (IN) | payer MEDICARE, MEDICAID ==
[~2019-12-17] VITALS: Ht 149.9 cm; Wt 71.7 kg
[2019-12-17] MEDS: TICAGRELOR 90 MG TABLET (BRILINTA) PO SCH (03:00)
[2019-12-17] MEDS ORDERED: TORS10TA3 PO (16:02)
[2019-12-17 16:48] LABS: BASO % 0.3 % (0.0-1.0); EOS # 0.3 10^3/uL (0.0-0.5); EOS % 3.8 % (0.0-3.0); HEMATOCRIT 35.6 % (36.0-47.0); HEMOGLOBIN 11.3 g/dl (12.0-15.5); LYMPH # 1.5 10^3/uL (1.5-5.0); MEAN CORPUSCULAR HEMOGLOBIN 29.9 pg (27.0-33.0); MEAN CORPUSCULAR HGB CONC 31.7 g/dl (32.0-36.5); MEAN CORPUSCULAR VOLUME 94.2 fl (80.0-96.0); MONO # 0.8 10^3/uL (0.0-0.8); MONO % 11.4 % (0.0-5.0); NEUTROPHILS # 4.1 10^3/uL (1.5-8.5); NEUTROPHILS % 61.2 % (36.0-66.0); PLATELET COUNT, AUTOMATED 276 10^3/uL (150-450); RED BLOOD COUNT 3.78 10^6/uL (4.00-5.40); WHITE BLOOD COUNT 6.6 10^3/uL (4.0-10.0)
--- NOTE | 2019-12-17 16:58 | REP ---
Left lower extremity Duplex Doppler venous ultrasound: Real time compression and duplex Doppler interrogation of the left lower extremity deep venous system is performed. The left common femoral, superficial femoral and popliteal veins are fully compressible with transducer pressure and demonstrate normal spontaneous and phasic flow, without evidence of deep venous thrombosis. Impression: No evidence of deep venous thrombosis of the left lower extremity femoral popliteal venous system. Electronically Signed by Sonny Sung MD 12/17/2019 04:50 P
[2019-12-17 17:08] LABS: INR 1.05; PROTHROMBIN TIME 13.4 SECONDS (11.8-14.0)
[2019-12-17 17:09] LABS: PARTIAL THROMBOPLASTIN TIME 26.4 SECONDS (25.0-38.4)
[2019-12-17] MEDS ORDERED: LORazepam 2 MG/ML VIAL IV STA (17:16)
[2019-12-17 17:18] LABS: C REACTIVE PROTEIN QUANTITATIV 0.55 MG/DL (0.00-0.30); CALCIUM LEVEL 8.5 MG/DL (8.8-10.2); CREATININE FOR GFR 1.71 MG/DL (0.55-1.30); GLOMERULAR FILTRATION RATE 30.1 (>32); POTASSIUM SERUM 3.6 MEQ/L (3.5-5.1)
[2019-12-17] MEDS ORDERED: NS 1,000 ML IV ONE (17:30)
[2019-12-17 17:44] LABS: ERYTHROCYTE SEDIMENTATION RATE 65 mm/hr (0-30)
[2019-12-17] MEDS ORDERED: VANCOMYCIN HCL 1,500 MG in D5W 250 ML IV ONE (17:45)
--- NOTE | 2019-12-17 17:55 | HPEPDOC ---
[facility] Medical History & Physical Date of Admission Dec 17, 2019 Date of Service: Dec 17, 2019 Primary Care Physician: Mono Sahni Attending Physician: DOMINGO TAYLOR MD History and Physical TIME OF SERVICE: 7:15 PM CHIEF COMPLAINT: Leg pain HISTORY OF PRESENT ILLNESS: This is a 89-year-old female who presents with complaints of 10/10 at its worst in severity left lower extremity pain, redness and and swelling for about 3 months. She called her insurance agency sales manager's office because the pain was very severe and was told to come to the hospital for evaluation. The patient denied having nausea, vomiting, fever or chills Per ER staff, the patient has had a wound at the left lower extremity that she has been dressing by herself. REVIEW OF SYSTEMS: 12 point review of systems negative except as listed in HPI PAST MEDICAL/ SURGICAL HISTORY: CKD 3 Chronic HTN Hypothyroidism Chronic CAD w placement of a HERNANDEZ in the LAD / Dyslipidemia Pacemaker placement to manage sick sinus syndrome Migraines Peoples's esophagus Osteoporosis History of blood loss anemia Restless leg syndrome History of right hip fracture that is post ORIF Chronic back pain/Unsteady gait, uses walker Dementia? - Per patient, she has an impaired memory Appendectomy Hysterectomy Lumbar laminectomy Lithotripsy Cataract surgeries SOCIAL HISTORY: She doesn't smoke FAMILY HISTORY: Stroke CHF Diabetes ALLERGIES: Please see below. HOME MEDICATIONS: Please see below. PHYSICAL EXAMINATION: Vital Signs Date Time Temp Pulse Resp B/P (MAP) Pulse Ox O2 Delivery O2 Flow Rate FiO2 12/17/19 15:46 98.0 60 24 151/66 (94) 96 Room Air GEN: Obese/ NAD INTEGUMENT: She has chronic status post dermatitis at the right lower extremity/she has redness, thickening of the skin, and shallow a wound at the anterior aspect of her left lower extremity HEENT: NCAT / mucus membranes moist and pink CVS: RRR/NMRG/ radial pulses intact LUNGS: able to speak full sentences without stopping to take a breath / lungs are clear to auscultation bilaterally on room air ABDOMEN: Contour ( obese) / abdomen is soft & not tender with palpation MSK/EXTREMITIES: range of motion intact in all 4 extremities NEURO: CN 2-12 are grossly intact / speech is not dysarthric PSYCH: alert and oriented / able to understand and follow all commands LABORATORY DATA: Immature Granulocyte % (Auto) 0.3, Neutrophils (%) (Auto) 61.2, Lymphocytes (%) (Auto) 23.0L, Monocytes (%) (Auto) 11.4H, Eosinophils (%) (Auto) 3.8H, Basophils (%) (Auto) 0.3, Neutrophils # (Auto) 4.1, Lymphocytes # (Auto) 1.5, Monocytes # (Auto) 0.8, Eosinophils # (Auto) 0.3, Basophils # (Auto) 0.0, Nucleated Red Blood Cells % (auto) 0.0, Erythrocyte Sedimentation Rate 65H, Prothrombin Time 13.4, Prothromb Time International Ratio 1.05, Activated Partial Thromboplast Time 26.4, Anion Gap 7L, Glomerular Filtration Rate 30.1L, Calcium Level 8.5L, C-Reactive Protein, Quantitative 0.55H IMAGING: BLE extremity ultrasound "Impression: No evidence of deep venous thrombosis of the left lower extremity femoral popliteal venous system" Tube/fib x-ray "Impression: No acute fracture or additional acute pathology." MICROBIOLOGY: 12/17/19 Blood Culture, Received Pending 12/17/19 Wound Culture, Received Pending 12/17/19 Blood Culture, Received Pending ASSESSMENT: Mr. Lo is an 89-year-old with a history of CKD 3, HTN, hypothyroid, CAD, dyslipidemia, sick sinus syndrome with pacemaker, migraines, osteoporosis, and restless leg syndrome who is admitted for management of left lower extremity cellulitis. PLAN: 1. LLE Cellulitis Despite a normal WBC. The ESR and CRP are elevated ALT-70 Score to diagnose LE Cellulitis = 5 points = >82.2 % likelihood of cellulitis She received cefazolin in in the ER Plan: Admit to medical floor/ fall precautions / elevate leg / wound care / f/u blood cx / continue cefazolin for MSSA coverage add Vanc for MRSA / acetaminophen and tramadol for pain/PT eval to see if she needs walking 8 prior to discharge 2. Normocytic anemia - trend hg 3. CKD 3 - f/u BMP 4. Chronic HTN - metoprolol, torsemide, spironolactone 5. Hypothyroidism - levothyroxine 6. Chronic CAD w placement of a HERNANDEZ in the LAD / Dyslipidemia - atorvastatin, metoprolol, nitroglycerin ticagrelor 7. Migraines -topiramate 8. Peoples's esophagus - PPI 9. Obesity , BMI of 31.9 complicates care - f/u A1C / the pt can f/u w his or her PCP for STOP BANG questionnaire, patient educator consult DVT PROPHYLAXIS: Lovenox DISPOSITION: Likely home after more than 2 midnight's stay Home Medications Scheduled Atorvastatin Calcium (Atorvastatin Calcium) 10 Mg Tab, 10 MG PO DAILY Cephalexin (Cephalexin) 500 Mg Capsule, 500 MG PO Q6H Cholecalciferol (Vitamin D3) (Vitamin D3) 125 Mcg Tablet, 125 MCG PO DAILY Dexlansoprazole (Dexilant) 60 Mg Cap, 60 MG PO DAILY Gabapentin (Gabapentin) 300 Mg Cap, 300 MG PO TID Levothyroxine Sodium (Levothyroxine Sodium) 50 Mcg Tab, 50 MCG PO DAILY Metoprolol Tartrate (Metoprolol Tartrate) 25 Mg Tab, 25 MG PO BID Nitroglycerin (Nitroglycerin) 0.4 Mg Sub, 0.4 MG SL NITRO Pramipexole Di-HCl (Mirapex) 0.25 Mg Tab, 0.25 MG PO DAILY may take 1 extra prn Spironolactone (Spironolactone) 25 Mg Tablet, 12.5 MG PO DAILY Ticagrelor Base (Brilinta) 90 Mg Tab, 90 MG PO BID Topiramate (Topiramate) 50 Mg Tab, 50 MG PO BID Torsemide (Torsemide) 10 Mg Tablet, 2 TAB PO DAILY Scheduled PRN Carboxymethylcellulose Sodium (Thera Tears) 0.25 % Dori, 2 DROP OU QID PRN for DRY EYES Allergies Coded Allergies: aspirin (Verified Allergy, Unknown, swollen mouth, 12/17/19) A-FIB/CHADSVASC A-FIB History Current/History of A-Fib/PAF?: No Current PO Anticoag Therapy: No DOMINGO TAYLOR MD Dec 17, 2019 17:55
[2019-12-17] MEDS ORDERED: MOM 30ML SUSPENSION UDC PO PRN (18:00)
[2019-12-17] MEDS ORDERED: ceFAZolin SOD 1 GM in D5W MINI-BAG PLUS 50 ML IV SCH ×2 (18:00→21:00)
[2019-12-17] MEDS ORDERED: ACETAMINOPHEN TAB 650MG DOSE (2X325MG) PO PRN (18:00)
[2019-12-17] MEDS ORDERED: MORPHINE 2 MG/ML 1ML VIAL (J2270) IV ONE (18:00)
[2019-12-17] MEDS ORDERED: MAALOX 30 ML SUSP *UDC PO PRN (18:00)
[2019-12-17] MEDS ORDERED: ONDANSETRON 4MG/2ML VIAL IV ONE (18:00)
[2019-12-17] MEDS ORDERED: VANCOMYCIN HCL 750 MG, VIAL MATE ADAPTER 1 EACH in D5W 250 ML IV ONE ×3 (18:00→21:30)
[2019-12-17] MEDS ORDERED: NATU1TAB5 PO (18:01)
[2019-12-17] MEDS ORDERED: SPIR-10 PO (18:04)
--- NOTE | 2019-12-17 18:18 | REP ---
Four views left tibia/fibula: 12/17/2019. Indication: Left leg pain. Comparison: None. Findings: There is no acute fracture, subluxation or dislocation. No lytic or blastic lesions are present. No significant arthritides are noted. Impression: No acute fracture or additional acute pathology. Electronically Signed by Aaron Frazier DO 12/17/2019 06:10 P
[2019-12-17 20:56] VITALS: BP 108/64
[2019-12-17] MEDS: TOPIRAMATE (TopAMAX) 25 MG TAB PO SCH (21:51)
[2019-12-17] MEDS: GABAPENTIN 300 MG CAP PO SCH (21:51)
[2019-12-17] MEDS: METOPROLOL TART 25 MG TABLET PO SCH (21:51)
[2019-12-17] MEDS ORDERED: traMADol 50 MG TAB PO PRN (23:30)
[2019-12-17] MEDS: ceFAZolin SOD 1 GM in D5W MINI-BAG PLUS 50 ML IV SCH (23:51)
[2019-12-18 00:07] LABS: HEMOGLOBIN A1c 6.1 %
[2019-12-18 05:14] VITALS: BP 101/62
[2019-12-18] MEDS: LEVOTHYROXINE 50MCG TABLET (0.05MG) PO SCH (06:07)
[2019-12-18] MEDS: ceFAZolin SOD 1 GM in D5W MINI-BAG PLUS 50 ML IV SCH ×3 (06:07→23:11)
[2019-12-18] MEDS: TORSEMIDE 10 MG TABLET PO SCH (08:14)
[2019-12-18] MEDS: VITAMIN D 1,000 INTERNATIONAL UNITS TABLET PO SCH (08:14)
[2019-12-18] MEDS: SPIRONOLACTONE 12.5MG PER 1/2 TABLET PO SCH (08:14)
[2019-12-18] MEDS: ATORVASTATIN 10 MG TAB PO SCH (08:14)
[2019-12-18] MEDS: GABAPENTIN 300 MG CAP PO SCH ×3 (08:14→21:05)
[2019-12-18] MEDS: TOPIRAMATE (TopAMAX) 25 MG TAB PO SCH ×2 (08:14→21:06)
[2019-12-18] MEDS: ENOXAPARIN 40MG/0.4ML SYRINGE (J1650 PER 10MG) SC SCH (08:15)
[2019-12-18] MEDS: VANCOMYCIN HCL 1,000 MG, VIAL MATE ADAPTER 1 EACH in D5W 250 ML IV SCH (08:15)
[2019-12-18] MEDS: METOPROLOL TART 25 MG TABLET PO SCH ×2 (08:38→21:05)
[2019-12-18] MEDS ORDERED: PRAMIPEXOLE 0.25 MG TAB PO SCH (09:00)
[2019-12-18] MEDS: TICAGRELOR 90 MG TABLET (BRILINTA) PO SCH ×2 (09:00→21:00)
[2019-12-18] MEDS ORDERED: NITROGLYCERIN 0.4 MG SUBL TABLET SL PRN (09:00)
--- NOTE | 2019-12-18 13:28 | IPNPDOC ---
Text Note Date of Service The patient was seen on 12/18/19. NOTE Subjective: Feels much better this morning. Very pleasant. GEN: Obese/ NAD SKIN: She has chronic status post dermatitis at the right lower extremity with erythema, thickening and shallow wound at the anterior aspect of her left lower extremity HEENT: NCAT, PERRLA, EOMI, MMM CVS: RRR, no mrg LUNGS: CTAB ABDOMEN: Obese, normoactive bowel soudsn, NTND EXTREMITIES: Much improved receding erythema in LLE with shallow scabby midshin wound. LLE>RLE with some swelling. Otherwise with FROM, WWP NEURO: CN 2-12 are grossly intact, speech is not dysarthric, moves all extremities with full 5/5 strength PSYCH: AO x 3 Labs: AM labs pending IMAGING: BLE extremity ultrasound "Impression: No evidence of deep venous thrombosis of the left lower extremity femoral popliteal venous system" Tube/fib x-ray "Impression: No acute fracture or additional acute pathology." MICROBIOLOGY: 12/17/19 Blood Culture, Received Pending 12/17/19 Wound Culture, Received Pending 12/17/19 Blood Culture, Received Pending 12/16 wound culture growing staph aureus, pending sensitivities ASSESSMENT: 89-year-old W with a history of CKD 3, HTN, hypothyroid, CAD, dyslipidemia, sick sinus syndrome with pacemaker, migraines, osteoporosis, and restless leg syndrome who was admitted for management of left lower extremity cellulitis. PLAN: 1. LLE Cellulitis Despite a normal WBC. The ESR and CRP are elevated -elevate leg -wound care -f/u blood and wound cx -continue cefazolin for better MSSA coverage and Vanc for MRSA coverage, with pending MRSA PCR and wound culture sensitivities -Acetaminophen and tramadol for pain -PT eval 2. Normocytic anemia - chronic, monitor 3. CKD 3 - chronic, will monitor 4. Chronic HTN - metoprolol, torsemide, spironolactone 5. Hypothyroidism - levothyroxine 6. Chronic CAD w placement of a HERNANDEZ in the LAD / Dyslipidemia - atorvastatin, metoprolol, nitroglycerin ticagrelor 7. Migraines -topiramate 8. Peoples's esophagus - PPI 9. Obesity , BMI of 31.9 complicates care DVT PROPHYLAXIS: Lovenox DISPOSITION: Medsurg VS,Fishbone, I+O VS, Fishbone, I+O Laboratory Tests 12/17/19 16:32 Vital Signs Date Time Temp Pulse Resp B/P (MAP) Pulse Ox O2 Delivery O2 Flow Rate FiO2 12/18/19 05:14 97.8 63 18 101/62 (75) 97 Room Air I&O- Last 24 Hours up to 6 AM 12/18/19 05:59 Intake Total 995 ml Output Total 0 ml Balance 995 ml LILIA LASSITER MD Dec 18, 2019 09:30
[2019-12-18 14:00] VITALS: BP 97/61
[2019-12-18 14:46] VITALS: BP 104/66
[2019-12-18 20:00] VITALS: BP 101/60
[2019-12-18 22:00] VITALS: BP 101/60
[2019-12-19 06:00] VITALS: BP 114/59
[2019-12-19] MEDS: LEVOTHYROXINE 50MCG TABLET (0.05MG) PO SCH (06:05)
[2019-12-19] MEDS: ceFAZolin SOD 1 GM in D5W MINI-BAG PLUS 50 ML IV SCH (06:06)
[2019-12-19 07:04] LABS: HEMATOCRIT 33.4 % (36.0-47.0); HEMOGLOBIN 10.6 g/dl (12.0-15.5); MEAN CORPUSCULAR HEMOGLOBIN 30.2 pg (27.0-33.0); MEAN CORPUSCULAR HGB CONC 31.7 g/dl (32.0-36.5); MEAN CORPUSCULAR VOLUME 95.2 fl (80.0-96.0); PLATELET COUNT, AUTOMATED 221 10^3/uL (150-450); RED BLOOD COUNT 3.51 10^6/uL (4.00-5.40)
[2019-12-19 07:30] LABS: CALCIUM LEVEL 8.1 MG/DL (8.8-10.2); CREATININE FOR GFR 1.51 MG/DL (0.55-1.30); GLOMERULAR FILTRATION RATE 34.7 (>32); POTASSIUM SERUM 3.7 MEQ/L (3.5-5.1)
[2019-12-19] MEDS: ENOXAPARIN 40MG/0.4ML SYRINGE (J1650 PER 10MG) SC SCH (08:32)
[2019-12-19] MEDS: TOPIRAMATE (TopAMAX) 25 MG TAB PO SCH (08:32)
[2019-12-19] MEDS: SPIRONOLACTONE 12.5MG PER 1/2 TABLET PO SCH (08:32)
[2019-12-19 08:33] VITALS: BP 114/59
[2019-12-19] MEDS: METOPROLOL TART 25 MG TABLET PO SCH (08:33)
[2019-12-19] MEDS: GABAPENTIN 300 MG CAP PO SCH (08:33)
[2019-12-19] MEDS: ATORVASTATIN 10 MG TAB PO SCH (08:33)
[2019-12-19] MEDS: TORSEMIDE 10 MG TABLET PO SCH (08:33)
[2019-12-19] MEDS: VITAMIN D 1,000 INTERNATIONAL UNITS TABLET PO SCH (08:33)
[2019-12-19] MEDS: VANCOMYCIN HCL 1,000 MG, VIAL MATE ADAPTER 1 EACH in D5W 250 ML IV SCH (08:35)
[2019-12-19] MEDS ORDERED: PNEUMOCOCCAL VACCINE 0.5ML SYRINGE(90732) PNEUMOVAX 23 IM ONE (09:00)
[2019-12-19] MEDS ORDERED: CEPH500C PO (09:52)
--- NOTE | 2019-12-19 11:26 | DS.PDOC ---
Discharge Summary General Date of Admission Dec 17, 2019 at 20:31 Date of Discharge 12/19/2019 Attending Physician: LILIA LASSITER MD Discharge Summary PROCEDURES PERFORMED DURING STAY: None ADMITTING DIAGNOSES: 1. Cellulitis DISCHARGE DIAGNOSES: LLE cellulitis CKD 3 Chronic HTN Hypothyroidism Chronic CAD w placement of a HERNANDEZ in the LAD / Dyslipidemia Pacemaker placement to manage sick sinus syndrome Migraines Peoples's esophagus Osteoporosis History of blood loss anemia Restless leg syndrome History of right hip fracture that is post ORIF Chronic back pain/Unsteady gait, uses walker COMPLICATIONS/CHIEF COMPLAINT: Cellulitis Of Leg. HISTORY OF PRESENT ILLNESS: 89-year-old W who presented to the ED with 10 out of 10 at its worst left lower extremity pain, redness and swelling for about 3 months. She called her cattle trader's office because the pain was very severe and was told to come to the hospital for evaluation. The patient denied having nausea, vomiting, fever or chills Per ER staff, but reported a wound at the left lower extremity that she has been dressing by herself. HOSPITAL COURSE: On exam she was noted to have cellulitis of LLE with shallow perez wound. She was otherwise started on vanc/ancef with dramatic recession of the erythema marked border, until a wound cultures grew MSSA and she was switched to keflex that she will take for a total of 7d course. She worked with PT and was deemed safe for home discharge and is now being discharged home and will follow up with her PCP. DISCHARGE MEDICATIONS: Please see below. ALLERGIES: Please see below. PHYSICAL EXAMINATION ON DISCHARGE: VITAL SIGNS: Please see below. GEN: Obese/ NAD SKIN: She has chronic status post dermatitis at the right lower extremity with erythema, thickening and shallow wound at the anterior aspect of her left lower extremity HEENT: NCAT, PERRLA, EOMI, MMM CVS: RRR, no mrg LUNGS: CTAB ABDOMEN: Obese, normoactive bowel soudsn, NTND EXTREMITIES: Further receding erythema in LLE with shallow scabby midshin wound. LLE>RLE with some swelling. Otherwise with FROM, WWP NEURO: CN 2-12 are grossly intact, speech is not dysarthric, moves all extremities with full 5/5 strength PSYCH: AO x 3 LABORATORY DATA: Please see below. IMAGING: BLE extremity ultrasound "Impression: No evidence of deep venous thrombosis of the left lower extremity femoral popliteal venous system" Tube/fib x-ray "Impression: No acute fracture or additional acute pathology." PROGNOSIS: Good ACTIVITY: As tolerated DIET: Regular DISCHARGE PLAN: Home DISPOSITION: Home DISCHARGE INSTRUCTIONS: 1. complete 5d of keflex. PCP follow up within 7-10d ITEMS TO FOLLOWUP ON ON OUTPATIENT: 1. LLE cellulitis resolution DISCHARGE CONDITION: Stable TIME SPENT ON DISCHARGE: 39 minutes. Vital Signs/I&Os Vital Signs Date Time Temp Pulse Resp B/P (MAP) Pulse Ox O2 Delivery O2 Flow Rate FiO2 12/19/19 08:33 60 114/59 12/19/19 06:00 91.4 18 100 Room Air I&O- Last 24 Hours up to 6 AM 12/19/19 06:00 Intake Total 1430 ml Output Total 300 ml Balance 1130 ml Laboratory Data Labs 24H Laboratory Tests 2 12/18/19 14:33: Methicillin-Resist S.aureus DNA PCR NOT DETECTED 12/19/19 06:45: Nucleated Red Blood Cells % (auto) 0.0, Anion Gap 6L, Glomerular Filtration Rate 34.7, Calcium Level 8.1L CBC/BMP Laboratory Tests 12/19/19 06:45 Microbiology Microbiology 12/17/19 Blood Culture - Preliminary, Resulted No growth after 24 hours . All specim... 12/17/19 Wound Culture - Final, Complete Staphylococcus Aureus 12/17/19 Blood Culture - Preliminary, Resulted No growth after 24 hours . All specim... Discharge Medications Scheduled Atorvastatin Calcium (Atorvastatin Calcium) 10 Mg Tab, 10 MG PO DAILY, (Reported) Cephalexin (Cephalexin) 500 Mg Capsule, 500 MG PO Q6H Cholecalciferol (Vitamin D3) (Vitamin D3) 125 Mcg Tablet, 125 MCG PO DAILY, (Reported) Dexlansoprazole (Dexilant) 60 Mg Cap, 60 MG PO DAILY, (Reported) Gabapentin (Gabapentin) 300 Mg Cap, 300 MG PO TID, (Reported) Levothyroxine Sodium (Levothyroxine Sodium) 50 Mcg Tab, 50 MCG PO DAILY, (Reported) Metoprolol Tartrate (Metoprolol Tartrate) 25 Mg Tab, 25 MG PO BID, (Reported) Nitroglycerin (Nitroglycerin) 0.4 Mg Sub, 0.4 MG SL NITRO, (Reported) Pramipexole Di-HCl (Mirapex) 0.25 Mg Tab, 0.25 MG PO DAILY, (Reported) may take 1 extra prn Spironolactone (Spironolactone) 25 Mg Tablet, 12.5 MG PO DAILY, (Reported) Ticagrelor Base (Brilinta) 90 Mg Tab, 90 MG PO BID, (Reported) Topiramate (Topiramate) 50 Mg Tab, 50 MG PO BID, (Reported) Torsemide (Torsemide) 10 Mg Tablet, 2 TAB PO DAILY, (Reported) Scheduled PRN Carboxymethylcellulose Sodium (Thera Tears) 0.25 % Dori, 2 DROP OU QID PRN for DRY EYES, (Reported) Allergies Coded Allergies: aspirin (Verified Allergy, Unknown, swollen mouth, 12/17/19) LILIA LASSITER MD Dec 19, 2019 09:51
[2019-12-19] MEDS ORDERED: CEPHALEXIN 500 MG CAP PO SCH (12:00)
== END 2019-12-19 12:20 | disposition home health service (06) | DRG 603 ==
LOC: M ED 15:45 → ENRESERV 18:46 → M ED 20:12 → M MS5PR 20:31
PROVIDERS: ADMIT Internal Medicine; ATTEND Internal Medicine
DX: L03.116 Cellulitis of left lower limb (principal); N18.3 Chronic kidney disease, stage 3 (moderate); I12.9 Hypertensive chronic kidney disease with stage 1 through stage 4 chronic kidney disease, or unspecified chronic kidney disease; E03.9 Hypothyroidism, unspecified; I25.10 Atherosclerotic heart disease of native coronary artery without angina pectoris; I49.5 Sick sinus syndrome; G43.909 Migraine, unspecified, not intractable, without status migrainosus; K22.70 Barrett's esophagus without dysplasia; M81.0 Age-related osteoporosis without current pathological fracture; G25.81 Restless legs syndrome; R26.81 Unsteadiness on feet; M54.9 Dorsalgia, unspecified; D64.9 Anemia, unspecified; Z87.81 Personal history of (healed) traumatic fracture; Z98.49 Cataract extraction status, unspecified eye; E66.9 Obesity, unspecified; Z68.31 Body mass index [BMI] 31.0-31.9, adult; Z95.5 Presence of coronary angioplasty implant and graft; Z95.0 Presence of cardiac pacemaker; Z79.899 Other long term (current) drug therapy; Z88.6 Allergy status to analgesic agent

== ENCOUNTER → 2020-01-10 | Outpatient (REF) | payer MEDICARE, MEDICAID ==
[~2020-01-10] MED LIST changes: +CALC1CAP31 PO; +CEPH500C PO; +NATU1TAB5 PO; +SPIR-10 PO; +TORS100T PO
[2020-01-10 11:23] LABS: BASO % 0.3 % (0.0-1.0); EOS # 0.3 10^3/uL (0.0-0.5); EOS % 3.8 % (0.0-3.0); HEMOGLOBIN 10.6 g/dl (12.0-15.5); LYMPH # 1.6 10^3/uL (1.5-5.0); LYMPH % 22.1 % (24.0-44.0); MEAN CORPUSCULAR HEMOGLOBIN 29.9 pg (27.0-33.0); MEAN CORPUSCULAR HGB CONC 31.2 g/dl (32.0-36.5); MEAN CORPUSCULAR VOLUME 95.8 fl (80.0-96.0); MONO # 0.7 10^3/uL (0.0-0.8); MONO % 9.9 % (0.0-5.0); NEUTROPHILS # 4.5 10^3/uL (1.5-8.5); NEUTROPHILS % 63.6 % (36.0-66.0); PLATELET COUNT, AUTOMATED 285 10^3/uL (150-450); RED BLOOD COUNT 3.55 10^6/uL (4.00-5.40); WHITE BLOOD COUNT 7.1 10^3/uL (4.0-10.0)
[2020-01-10 11:29] LABS: ALBUMIN 3.2 GM/DL (3.2-5.2); ALT/SGPT 18 U/L (12-78); BILIRUBIN,TOTAL 0.5 MG/DL (0.2-1.0); BLOOD UREA NITROGEN 35 MG/DL (7-18); C REACTIVE PROTEIN QUANTITATIV < 0.30 MG/DL (0.00-0.30); CALCIUM LEVEL 8.8 MG/DL (8.8-10.2); CARBON DIOXIDE LEVEL 24 MEQ/L (21-32); CHLORIDE LEVEL 111 MEQ/L (98-107); CHOLESTEROL LEVEL 128 MG/DL (<200); CHOLESTEROL RISK RATIO 3.121 (<5); CREATININE FOR GFR 1.72 MG/DL (0.55-1.30); GLOMERULAR FILTRATION RATE 29.9 (>32); GLUCOSE, FASTING 82 MG/DL (70-100); HDL CHOLESTEROL 41 MG/DL (>40); LDL CHOLESTEROL 69 MG/DL (<100); MAGNESIUM LEVEL 2.6 MG/DL (1.8-2.4); NON-HDL-C 87 MG/DL; SODIUM LEVEL 139 MEQ/L (136-145); TOTAL PROTEIN 7.5 GM/DL (6.4-8.2); TRIGLYCERIDES LEVEL 89 MG/DL (<150)
[2020-01-10 11:37] LABS: PTH INTACT 148.7 PG/ML (18.5-88.0); TOTAL 25(OH) VITAMIN D 49.5 NG/ML (30.0-100.0)
[2020-01-10 11:46] LABS: ERYTHROCYTE SEDIMENTATION RATE 58 mm/hr (0-30)
== END ==
LOC: M PLALAB 09:55
PROVIDERS: ATTEND Internal Medicine
DX: K22.70 Barrett's esophagus without dysplasia (principal); L03.116 Cellulitis of left lower limb; I12.9 Hypertensive chronic kidney disease with stage 1 through stage 4 chronic kidney disease, or unspecified chronic kidney disease; E78.00 Pure hypercholesterolemia, unspecified; M25.473 Effusion, unspecified ankle; N18.3 Chronic kidney disease, stage 3 (moderate); E55.9 Vitamin D deficiency, unspecified

== ENCOUNTER → 2020-02-04 | Outpatient (REF) | payer MEDICARE, MEDICAID ==
[2020-03-04 02:10] LABS: HEMATOCRIT 36.8 % (36.0-47.0); HEMOGLOBIN 11.4 g/dl (12.0-15.5); MEAN CORPUSCULAR HEMOGLOBIN 30.2 pg (27.0-33.0); MEAN CORPUSCULAR VOLUME 97.6 fl (80.0-96.0); PLATELET COUNT, AUTOMATED 243 10^3/uL (150-450); RED BLOOD COUNT 3.77 10^6/uL (4.00-5.40); WHITE BLOOD COUNT 6.8 10^3/uL (4.0-10.0)
[2020-03-23 19:38] LABS: ALBUMIN 3.4 GM/DL (3.2-5.2); BILIRUBIN,TOTAL 0.3 MG/DL (0.2-1.0); CALCIUM LEVEL 8.9 MG/DL (8.8-10.2); CHOLESTEROL RISK RATIO 3.285 (<5); CREATININE FOR GFR 1.48 MG/DL (0.55-1.30); GLOMERULAR FILTRATION RATE 35.5 (>32); MAGNESIUM LEVEL 2.2 MG/DL (1.8-2.4); POTASSIUM SERUM 3.6 MEQ/L (3.5-5.1); PTH INTACT 145.2 PG/ML (18.5-88.0); TOTAL 25(OH) VITAMIN D 59.1 NG/ML (30.0-100.0); TOTAL PROTEIN 7.8 GM/DL (6.4-8.2)
== END ==
LOC: M SFHCPLAZ 10:30
PROVIDERS: ATTEND Internal Medicine
DX: K22.70 Barrett's esophagus without dysplasia (principal); I12.9 Hypertensive chronic kidney disease with stage 1 through stage 4 chronic kidney disease, or unspecified chronic kidney disease; E78.00 Pure hypercholesterolemia, unspecified; N18.3 Chronic kidney disease, stage 3 (moderate); E55.9 Vitamin D deficiency, unspecified

== ENCOUNTER → 2020-02-16 | Outpatient (CLI) | payer MEDICARE, MEDICAID ==
--- NOTE | 2020-03-30 10:40 | REP ---
ULTRASOUND ABDOMEN COMPLETE HISTORY: Right flank pain for three weeks. TECHNIQUE: Real-time sonographic evaluation of the abdomen performed. FINDINGS: Gallbladder demonstrates no evidence of intraluminal sludge or calculi, wall thickening, or pericholecystic fluid. There is no intrahepatic or extrahepatic biliary dilatation. Common bile duct measuring 5 mm. The liver is normal in size with a length of 12.6 cm in the midclavicular line. There is no liver mass. Pancreas demonstrates no gross mass. The tail is not optimally seen due to overlying bowel gas. Spleen is normal in size with no intrinsic abnormality. Length is 8.0 cm. Kidneys are mildly atrophic. Right kidney measures 8.4 x 3.3 x 3.9 cm and the left kidney 8.7 x 3.3 x 4.2 cm. Both kidneys are some echogenic suggesting medical renal disease. There is no hydronephrosis bilaterally. No definite renal calculi are seen. In the mid right kidney, there is a cyst measuring 1.7 cm in diameter. There is mild prominence of the renal pelvis bilaterally compatible with an extrarenal pelvis. The appearance is similar to the prior study of 09/09/2012, CT exam. Abdominal aorta is normal in caliber with no aneurysm, proximally maximum AP diameter is 2.1 cm and distally 1.6 cm. There is no ascites. IMPRESSION: Mild bilateral renal atrophy with increased echotexture suggesting medical renal disease. No hydronephrosis. No other acute finding. MTDD
== END ==
LOC: M RAD 07:38
PROVIDERS: ATTEND Internal Medicine
DX: N26.1 Atrophy of kidney (terminal) (principal)

== ENCOUNTER 2020-03-09 11:16 | Emergency (ER) | payer MEDICARE, MEDICAID ==
[~2020-03-09] VITALS: Ht 149.9 cm; Wt 68.0 kg
[~2020-03-09 11:16] MED LIST changes: -CALC1CAP31 PO; -TORS100T PO
[2020-03-09 12:51] LABS: BASO % 0.3 % (0.0-1.0); EOS # 0.2 10^3/uL (0.0-0.5); EOS % 2.4 % (0.0-3.0); HEMATOCRIT 35.5 % (36.0-47.0); HEMOGLOBIN 11.2 g/dl (12.0-15.5); LYMPH # 1.8 10^3/uL (1.5-5.0); LYMPH % 23.3 % (24.0-44.0); MEAN CORPUSCULAR HEMOGLOBIN 30.2 pg (27.0-33.0); MEAN CORPUSCULAR HGB CONC 31.5 g/dl (32.0-36.5); MEAN CORPUSCULAR VOLUME 95.7 fl (80.0-96.0); MONO # 0.9 10^3/uL (0.0-0.8); MONO % 12.1 % (0.0-5.0); NEUTROPHILS # 4.7 10^3/uL (1.5-8.5); NEUTROPHILS % 61.2 % (36.0-66.0); RED BLOOD COUNT 3.71 10^6/uL (4.00-5.40); WHITE BLOOD COUNT 7.6 10^3/uL (4.0-10.0)
[2020-03-09 13:09] LABS: CALCIUM LEVEL 9.2 MG/DL (8.8-10.2); CREATININE FOR GFR 1.38 MG/DL (0.55-1.30); GLOMERULAR FILTRATION RATE 38.5 (>32); POTASSIUM SERUM 3.9 MEQ/L (3.5-5.1)
[2020-03-09 13:11] LABS: PLATELET COUNT, AUTOMATED 290 10^3/uL (150-450)
--- NOTE | 2020-03-09 13:13 | REPVR ---
PROCEDURE INFORMATION: Exam: US Duplex Left Lower Extremity Veins, Limited Exam date and time: 03/09/2020 1:03 PM Age: 89 years old Clinical indication: Pain; Swelling (edema) of limb; Lower extremity, left; Leg, upper and leg, lower; Additional info: Int swelling/pain RO dvt, left leg pain/ tenderness TECHNIQUE: Imaging protocol: Real-time Duplex ultrasound of the Left Lower Extremity with 2-D aguero scale, color Doppler flow and spectral waveform analysis with image documentation. Limited exam focused on the left lower extremity veins. COMPARISON: US Duplex, Ext,LOWER veins,unilat 12/17/2019 4:33 PM FINDINGS: Left deep veins: Unremarkable. The common femoral, femoral, proximal profunda femoral and popliteal veins are patent without thrombus. Normal Doppler waveforms. Normal compressibility and/or augmentation response. Left superficial veins: Unremarkable. Saphenofemoral junction is patent without thrombus. Soft tissues: Unremarkable. IMPRESSION: No deep venous thrombus demonstrated in the left lower extremity. Electronically signed by: Joseph Christiansen On 03/09/2020 13:13:24 PM
[2020-03-09 13:27] VITALS: BP 135/64
== END 2020-03-09 13:28 | disposition home or self-care (01) ==
LOC: M ED 11:16
DX: L97.929 Non-pressure chronic ulcer of unspecified part of left lower leg with unspecified severity (principal); R60.0 Localized edema; I11.0 Hypertensive heart disease with heart failure; I50.9 Heart failure, unspecified; I25.2 Old myocardial infarction; G25.81 Restless legs syndrome; K21.9 Gastro-esophageal reflux disease without esophagitis; E03.9 Hypothyroidism, unspecified; Z87.442 Personal history of urinary calculi; Z95.0 Presence of cardiac pacemaker; Z95.5 Presence of coronary angioplasty implant and graft; Z88.6 Allergy status to analgesic agent; Z79.899 Other long term (current) drug therapy

== ENCOUNTER 2020-05-15 09:10 | Inpatient (IN) | payer MEDICARE, MEDICAID ==
[~2020-05-15] VITALS: Ht 149.9 cm; Wt 69.5 kg
[2020-05-15] MEDS ORDERED: ACETAMINOPHEN 500 MG TAB PO ONE (09:45)
[2020-05-15 10:11] LABS: BASO % 0.2 % (0.0-1.0); EOS % 0.1 % (0.0-3.0); HEMATOCRIT 37.1 % (36.0-47.0); HEMOGLOBIN 11.3 g/dl (12.0-15.5); LYMPH # 1.1 10^3/uL (1.5-5.0); LYMPH % 8.7 % (24.0-44.0); MEAN CORPUSCULAR HEMOGLOBIN 29.8 pg (27.0-33.0); MEAN CORPUSCULAR HGB CONC 30.5 g/dl (32.0-36.5); MEAN CORPUSCULAR VOLUME 97.9 fl (80.0-96.0); MONO # 1.3 10^3/uL (0.0-0.8); MONO % 10.1 % (0.0-5.0); PLATELET COUNT, AUTOMATED 304 10^3/uL (150-450); RED BLOOD COUNT 3.79 10^6/uL (4.00-5.40); WHITE BLOOD COUNT 12.4 10^3/uL (4.0-10.0)
[2020-05-15] MEDS ORDERED: CALC1CAP31 PO (10:20)
[2020-05-15] MEDS ORDERED: POTA10CA32 PO (10:20)
--- NOTE | 2020-05-15 10:56 | REP ---
INDICATION: pain. COMPARISON: Chest x-ray 09/13/2017 TECHNIQUE: Three views FINDINGS: AP view shows pedicles spinous and transverse processes intact posterior rib articulations are unremarkable dual lead pacer present over the left chest with leads in the right atrium and right ventricle medial clavicles are intact. On the lateral view there appears to be some anterior wedging L1, please see the lumbar spine series this date. Bones are demineralized. The other vertebral bodies involving the thoracic spine and lower cervical spine are without compression deformity. There is cervical spondylosis evident on the swimmer's view. IMPRESSION: Compression deformity of L1 vertebral body on the lateral view. Please see lumbar spine series this date for better visualization. There are degenerative changes in the thoracic spine but no thoracic compression deformities or focal lesions. Degenerative changes in the thoracic and lower cervical spine evident. <Electronically signed by Carlito Araujo > 05/15/20 [id number]
--- NOTE | 2020-05-15 11:01 | REP ---
INDICATION: pain. COMPARISON: CT lumbar 09/07/2018. TECHNIQUE: Five views provided. FINDINGS: There is a levorotatory curve of the lumbar spine at L3-4. There has been fusion of the L4 and L5 vertebral bodies with no disc space visible. The appearance is a block vertebra. Degenerative disc changes marked at L3-4 with sclerosis, narrowing and vacuum phenomenon. The L5-S1 disc space is preserved.There is facet arthropathy at L5-S1 and L3-4. There is a grade 1 anterior wedge compression deformity of L1 with some vacuum phenomenon. No involvement of the posterior vertebral body and neural arch. Focal kyphosis at this level, all new from the 09/07/2018 CT study. IMPRESSION: New anterior L1 wedge compression deformity, grade 1 since the 09/07/[address] No involvement of the posterior vertebral body or neural arch. Some focal kyphosis. Advanced degenerative changes lower lumbar spine and facets with solid fusion of L4 and 5 vertebral bodies. All the other degenerative changes and postoperative changes are stable. <Electronically signed by Carlito Araujo > 05/15/20 [id number]
[2020-05-15 11:03] LABS: BILIRUBIN,TOTAL 0.6 MG/DL (0.2-1.0); C REACTIVE PROTEIN QUANTITATIV 16.6 MG/DL (0.00-0.30); CALCIUM LEVEL 9.8 MG/DL (8.8-10.2); CREATININE FOR GFR 1.5 MG/DL (0.55-1.30); GLOMERULAR FILTRATION RATE 34.9 (>32); POTASSIUM SERUM 3.8 MEQ/L (3.5-5.1); TOTAL PROTEIN 8.3 GM/DL (6.4-8.2)
--- NOTE | 2020-05-15 12:09 | REP ---
INDICATION: trauma fx L1. COMPARISON: Comparison CT study of the lumbar spine September 07, 2018.. Comparison radiographs May 15, 2020. TECHNIQUE: Helical scanning is acquired. 4 mm axial images are re-formatted. Coronal and sagittal MPR images are generated. FINDINGS: Preliminary digital fresh work inspector radiograph shows orthopedic hardware in the right proximal femur and a levoconvex curve in the lumbar spine. Axial sagittal and coronal images demonstrate old ankylosis of the L4-5 disc. A right-sided L4 laminectomy defect is seen. The right-sided L5 stress fracture noted on the September 07, [address] study has healed. There is advanced degenerative disc disease at the L 3 L4 disc with disc space narrowing and anterior osteophyte formation. There is diffuse disc bulging at L3-4. Combined with developmentally short pedicles, ligamentum flavum hypertrophy and some facet hypertrophy, there is moderate central canal stenosis at L3-4. This appears to be unchanged. There are degenerative disc changes at L2-3 with diffuse disc bulging and moderate ligamentum flavum hypertrophy. There is moderate central canal stenosis at L2-3 as well. This appears to be unchanged. There is left foraminal disc protrusion producing left-sided foraminal narrowing. At L1-2, there is degenerative disc disease with vacuum phenomena and mild diffuse disc bulging. Canal size is borderline. There is a left transverse process fracture at L2 new since the prior study. There is a wedge compression deformity at the L1 level which appears to be acute or subacute. I do not see paravertebral hematoma. No epidural hematoma is apparent. There is approximately 25% loss of anterior vertebral body height. No retropulsion is seen. There is mild sclerosis along the L1 superior endplate. There is a left transverse process fracture at L1 new since the 2019 prior study.. IMPRESSION: Interval wedge compression deformity at L1 with approximately 25% loss of anterior vertebral body height. Healing sclerosis. New from September 07, 2018. There are fractures of the left transverse processes at L1 and L2 in addition. Old fusion L4-5 and right laminectomy L4-5. The right L5 fracture identified on September 07, 2018 has healed. <Electronically signed by Javan Pickett > 05/15/20 [id number]
[2020-05-15] MEDS ORDERED: MORPHINE 2 MG/ML 1ML VIAL (J2270) IV PRN (14:00)
[2020-05-15] MEDS ORDERED: ONDANSETRON 4MG/2ML VIAL IV ONE (14:00)
[2020-05-15] MEDS ORDERED: NORCO, ANEXSIA 5/325MG TABLET (HYDROcodone/ACETAMINOPHEN) PO ONE (14:45)
[2020-05-15] MEDS ORDERED: TORS100T PO (15:39)
[2020-05-15] MEDS ORDERED: ACETAMINOPHEN TAB 650MG DOSE (2X325MG) PO PRN (15:45)
[2020-05-15] MEDS: GABAPENTIN 300 MG CAP PO SCH ×3 (16:00→22:40)
[2020-05-15] MEDS ORDERED: NITROGLYCERIN 0.4 MG SUBL TABLET SL PRN (16:00)
--- NOTE | 2020-05-15 16:12 | HPEPDOC ---
General Date of Admission 05/15/20 Date of Service: May 15, 2020 Chief Complaint The patient is a 89-year-old female admitted with a reason for visit of Back Pain. Source: Patient, Family Exam Limitations: Dementia Timing/Duration: 24 hours Severity: Mild History of Present Illness Patient is 89 years old female with past medical history of hypertension, dementia, hypothyroidism, osteoporosis, coronary artery diseases presented to the hospital after history of mechanical fall. According to her family patient most likely developed mechanical fall prior because in the morning she was complaining of severe back pain. Patient lives alone. Patient was recently diagnosed with advanced dementia and she does not remember about fall. In ER patient was found to have leukocytosis of 12.4, hemoglobin 11.3, creatinine 1.5. Spinal CT showed Interval wedge compression deformity at L1 with approximately 25% loss of anterior vertebral body height. Healing sclerosis. New from September 07, 2018. There are fractures of the left transverse processes at L1 and L2 in addition. Old fusion L4-5 and right laminectomy L4-5. The right L5 fracture identified on September 07, 2018 has healed. Home Medications Scheduled Atorvastatin Calcium (Atorvastatin Calcium) 10 Mg Tab, 10 MG PO DAILY, (Reported) Cholecalciferol (Vitamin D3) (Vitamin D3) 125 Mcg Tablet, 125 MCG PO DAILY, (Reported) Dexlansoprazole (Dexilant) 60 Mg Cap, 60 MG PO DAILY, (Reported) Gabapentin (Gabapentin) 300 Mg Cap, 300 MG PO TID, (Reported) Levothyroxine Sodium (Levothyroxine Sodium) 50 Mcg Tab, 50 MCG PO DAILY, (Reported) Metoprolol Tartrate (Metoprolol Tartrate) 25 Mg Tab, 25 MG PO BID, (Reported) Nitroglycerin (Nitroglycerin) 0.4 Mg Sub, 0.4 MG SL NITRO, (Reported) Potassium Chloride (Potassium Chloride) 10 Meq Capsule.er, 20 MEQ PO DAILY, (Reported) @ 1300 Pramipexole Di-HCl (Mirapex) 0.25 Mg Tab, 0.25 MG PO DAILY, (Reported) may take 1 extra prn Spironolactone (Spironolactone) 25 Mg Tablet, 12.5 MG PO DAILY, (Reported) Ticagrelor Base (Brilinta) 90 Mg Tab, 90 MG PO BID, (Reported) Topiramate (Topiramate) 50 Mg Tab, 50 MG PO BID, (Reported) Torsemide (Torsemide) 100 Mg Tablet, 50 MG PO DAILY, (Reported) @ 1300 Scheduled PRN Carboxymethylcellulose Sodium (Thera Tears) 0.25 % Dori, 2 DROP OU QID PRN for DRY EYES, (Reported) Miscellaneous Medications Calcitriol (Calcitriol) 0.25 Mcg Capsule, (Reported) Allergies Coded Allergies: aspirin (Verified Allergy, Severe, swollen mouth, 05/15/20) Past Medical History Medical History HYPERTENSION RESTLESS LEG SYNDROME VITAMIN D DEFICIENCY HYPERCHOLESTEROLEMIA HYPOTHYROIDISM TOVAR'S ESOPHAGUS OSTEOPOROSIS DEGENERATIVE DISC DISEASE, LUMBAR MIGRAINE SICK SINUS SYNDROME CHRONIC PRURITUS HYPOTHYROIDISM, UNSPECIFIED TYPE CORONARY ARTERY DISEASE INVOLVING [place] CORONARY ARTERY OF [place] HEART WITHOUT ANGINA PECTORIS ANKLE EDEMA Surgical History APPENDECTOMY 1951 HYSTERECTOMY 1964 LUMBAR LAMINECTOMY 2000 LUMBAR DISC HERNIATION 2000 L3 & L4 HERNIATION X 2 2002 COLONOSCOPY 04/2010 PACEMAKER INSERTION 2010 LITHOTRIPSY 2011 BILATERAL PTOSIS SURGERY 02/2016 OS CATARACT SURGERY 03/2017 OD CATARACT SURGEY 04/15/2017 2 DRUG-ELUTING STENTS PLACED IN THE LAD 09/13/2017 ORIF RIGHT HIP FRACTURE-DR. NAOMI ARAUZ 09/14/2018 Family History FATHER: , STROKE MOTHER: , CHF SON(S): ALIVE, DM DAUGHTER(S): ALIVE, [place] 2 BROTHER(S) , 3 SISTER(S) - HEALTHY. 2 SON(S) , 2 DAUGHTER(S) . NO KNOWN FAMILY HX OF UROLOGIC DISEASE\/CANCERS. A DETAILED FAMILY HISTORY ISNOT REALLY PERTINENT AT HER AGE. A SON AGE 65 HAS METASTATIC CANCER. Social History * Smoker: Denies Alcohol: Denies Drugs: denies A-FIB/CHADSVASC A-FIB History Current/History of A-Fib/PAF?: No Current PO Anticoag Therapy: No Review of Systems Constitutional: Denies: Chills, Fever Eyes: Denies: Pain ENT: Denies: Head Aches Skin: Denies: Rash Pulmonary: Denies: Dyspnea Cardiovascular: Denies: Chest Pain Gastrointestinal: Denies: Nausea, Vomiting Genitourinary: Denies: Dysuria Hematologic: Denies: Bruising, Bleeding Excessively Endocrine: Denies: Polydipsia Musculoskeletal: Reports: Back Pain Neurological: Denies: Weakness, Numbness Psych: Reports: Memory Issues Physical Examination General Exam: Positive: Cooperative Eye Exam: Positive: PERRLA ENT Exam: Positive: Atraumatic Neck Exam: Positive: Supple, JVD Chest Exam: Positive: Clear to auscultation Heart Exam: Positive: Rate Normal Telemetry: Positive: No significant arrhythmia Abdomen Exam: Positive: Normal bowel sounds Extremity Exam: Negative: Clubbing Skin Exam: Positive: Nl turgor and temperature Neuro Exam: Positive: Cranial Nerves 3-12 NL Psych Exam: Positive: Mood NL Vital Signs Vital Signs Date Time Temp Pulse Resp B/P (MAP) Pulse Ox O2 Delivery O2 Flow Rate FiO2 05/15/20 14:57 20 05/15/20 13:59 Room Air 05/15/20 10:02 98.7 78 171/80 (110) 100 Laboratory Data Labs 24H Laboratory Tests 2 05/15/20 09:49: Immature Granulocyte % (Auto) 0.9, Neutrophils (%) (Auto) 80.0H, Lymphocytes (%) (Auto) 8.7L, Monocytes (%) (Auto) 10.1H, Eosinophils (%) (Auto) 0.1, Basophils (%) (Auto) 0.2, Neutrophils # (Auto) 10.0H, Lymphocytes # (Auto) 1.1L, Monocytes # (Auto) 1.3H, Eosinophils # (Auto) 0.0, Basophils # (Auto) 0.0, Nucleated Red Blood Cells % (auto) 0.0, Anion Gap 10, Glomerular Filtration Rate 34.9, Calcium Level 9.8, Total Bilirubin 0.6, Aspartate Amino Transf (AST/SGOT) 23, Alanine Aminotransferase (ALT/SGPT) 12, Alkaline Phosphatase 113, C-Reactive Protein, Quantitative 16.60H, Total Protein 8.3H, Albumin 3.0L, Albumin/Globulin Ratio 0.6L CBC/BMP Laboratory Tests 05/15/20 09:49 Assessment/Plan Patient is 89 years old female with past medical history of hypertension, dementia, hypothyroidism, osteoporosis, coronary artery diseases presented to the hospital after history of mechanical fall. According to her family patient most likely developed mechanical fall prior because in the morning she was complaining of severe back pain. Patient lives alone. Patient was recently diagnosed with advanced dementia and she does not remember about fall. In ER patient was found to have leukocytosis of 12.4, hemoglobin 11.3, creatinine 1.5. Spinal CT showed Interval wedge compression deformity at L1 with approximately 25% loss of anterior vertebral body height. Healing sclerosis. New from September 07, 2018. There are fractures of the left transverse processes at L1 and L2 in addition. Old fusion L4-5 and right laminectomy L4-5. The right L5 fracture identified on September 07, 2018 has healed. Problems (1) Dementia Status: Chronic Problem Text: Patient will need placement (2) Compression fracture of L1 lumbar vertebra Status: Acute Problem Text: Pain management Alendronate Calcium supplementation and vitamin D (3) Osteoporosis Status: Chronic Problem Text: See above (4) Hypertension Status: Chronic Problem Text: I added Norvasc to her medical regimen (5) Hypothyroidism Status: Chronic Problem Text: Continue Synthroid Plan / VTE VTE Prophylaxis Ordered?: Yes PRAVEENA HALL DO May 15, 2020 16:12
[2020-05-15] MEDS ORDERED: amLODIPine 10 MG TAB PO ONE (16:15)
[2020-05-15] MEDS: POTASSIUM CHLORIDE 10 MEQ SR TABLET PO SCH (20:01)
[2020-05-15] MEDS: METOPROLOL TART 25 MG TABLET PO SCH ×2 (21:00→22:40)
[2020-05-15] MEDS: CALCIUM/VITAMIN D 500 MG TAB PO SCH ×2 (21:00→22:39)
[2020-05-15] MEDS: TOPIRAMATE (TopAMAX) 25 MG TAB PO SCH ×2 (21:00→22:39)
[2020-05-15] MEDS: PRAMIPEXOLE 0.25 MG TAB PO SCH (21:00)
[2020-05-15] MEDS: TICAGRELOR 90 MG TABLET (BRILINTA) PO SCH (21:00)
[2020-05-15 21:55] VITALS: BP 137/76
[2020-05-15] MEDS: HEPARIN SOD (PORCINE) 5000UNITS/ML 1ML VIAL/SYRINGE SC SCH (22:39)
[2020-05-15] MEDS: PERCOCET 5MG/325MG TAB PO PRN (22:41)
[2020-05-15] MEDS ORDERED: PILL CUTTER 1 EACH XX PRN (22:45)
[2020-05-16 06:00] VITALS: BP 118/52
[2020-05-16] MEDS ORDERED: LEVOTHYROXINE 50MCG TABLET (0.05MG) PO SCH (06:00)
[2020-05-16] MEDS: ALENDRONATE 35MG TABLET PO SCH (06:00)
[2020-05-16 06:58] LABS: HEMATOCRIT 32.2 % (36.0-47.0); HEMOGLOBIN 9.8 g/dl (12.0-15.5); MEAN CORPUSCULAR HEMOGLOBIN 29.9 pg (27.0-33.0); MEAN CORPUSCULAR HGB CONC 30.4 g/dl (32.0-36.5); MEAN CORPUSCULAR VOLUME 98.2 fl (80.0-96.0); PLATELET COUNT, AUTOMATED 266 10^3/uL (150-450); RED BLOOD COUNT 3.28 10^6/uL (4.00-5.40)
[2020-05-16] MEDS ORDERED: ALENDRONATE 35MG TABLET PO SCH (07:00)
[2020-05-16] MEDS: LEVOTHYROXINE 50MCG TABLET (0.05MG) PO SCH (07:00)
[2020-05-16 07:17] LABS: CALCIUM LEVEL 9.1 MG/DL (8.8-10.2); CREATININE FOR GFR 1.4 MG/DL (0.55-1.30); GLOMERULAR FILTRATION RATE 37.8 (>32); MAGNESIUM LEVEL 2.5 MG/DL (1.8-2.4); POTASSIUM SERUM 3.4 MEQ/L (3.5-5.1)
[2020-05-16] MEDS ORDERED: ENOXAPARIN 40MG/0.4ML SYRINGE (J1650 PER 10MG) SC SCH (09:00)
[2020-05-16] MEDS: CALCIUM/VITAMIN D 500 MG TAB PO SCH ×2 (09:28→21:00)
[2020-05-16] MEDS: TORSEMIDE 100 MG TAB PO SCH (09:28)
[2020-05-16] MEDS: METOPROLOL TART 25 MG TABLET PO SCH ×2 (09:29→20:24)
[2020-05-16] MEDS: amLODIPine 10 MG TAB PO SCH (09:29)
[2020-05-16] MEDS: TICAGRELOR 90 MG TABLET (BRILINTA) PO SCH ×2 (09:29→21:00)
[2020-05-16] MEDS: CALCITRIOL 0.25 MCG CAP (S0169) PO SCH (09:29)
[2020-05-16] MEDS: SPIRONOLACTONE 12.5MG PER 1/2 TABLET PO SCH (09:30)
[2020-05-16] MEDS: GABAPENTIN 300 MG CAP PO SCH ×3 (09:30→21:23)
[2020-05-16] MEDS: ATORVASTATIN 10 MG TAB PO SCH (09:30)
[2020-05-16] MEDS: TOPIRAMATE (TopAMAX) 25 MG TAB PO SCH ×2 (09:30→21:22)
[2020-05-16] MEDS: HEPARIN SOD (PORCINE) 5000UNITS/ML 1ML VIAL/SYRINGE SC SCH ×2 (09:31→21:22)
[2020-05-16] MEDS: POTASSIUM CHLORIDE 10 MEQ SR TABLET PO SCH (09:31)
[2020-05-16] MEDS: PERCOCET 5MG/325MG TAB PO PRN (11:37)
--- NOTE | 2020-05-16 13:29 | IPNPDOC ---
Text Note Date of Service The patient was seen on 05/16/20. NOTE Subjective: No any acute event overnight. Patient complains of lower back pain, exacerbated with movement Objective: GENERAL APPEARANCE: NAD HEENT: no scleral icterus, no JVD, EOMI CARDIOVASCULAR: S1S2 LUNGS: CTA ABDOMEN: soft & not tender w palpitation MUSCULOSKELETAL: no cyanosis, + 1 legs swelling, palpation over L1-L2 tender INTEGUMENT: no generalized palor NEUROLOGICAL: cranial nerve function from 2-12 intact intact, follows commands, speech not dysarthric Assessment/Plan Patient is 89 years old female with past medical history of hypertension, callum ntia, hypothyroidism, osteoporosis, coronary artery diseases presented to the hospital after history of mechanical fall. According to her family patient most likely developed mechanical fall prior because in the morning she was complaining of severe back pain. Patient lives alone. Patient was recently diagnosed with advanced dementia and she does not remember about fall. In ER patient was found to have leukocytosis of 12.4, hemoglobin 11.3, creatinine 1.5. Spinal CT showed Interval wedge compression deformity at L1 with approximately 25% loss of anterior vertebral body height. Healing sclerosis. New from September 07, 2018. There are fractures of the left transverse processes at L1 and L2 in addition. Old fusion L4-5 and right laminectomy L4-5. The right L5 fracture identified on September 07, 2018 has healed. Problems (1) Dementia Patient will need placement (2) Compression fracture of L1 lumbar vertebra Pain management Alendronate Calcium supplementation and vitamin D (3) Osteoporosis See above (4) Hypertension I added Norvasc to her medical regimen (5) Hypothyroidism Continue Synthroid VS,Fishbone, I+O VS, Fishbone, I+O Laboratory Tests 05/16/20 06:43 Vital Signs Date Time Temp Pulse Resp B/P (MAP) Pulse Ox O2 Delivery O2 Flow Rate FiO2 05/16/20 12:08 16 Room Air 05/16/20 09:29 84 118/52 05/16/20 06:00 98.9 97 I&O- Last 24 Hours up to 6 AM 05/16/20 06:00 Intake Total 520 ml Output Total 0 ml Balance 520 ml PRAVEENA HALL DO May 16, 2020 13:28
[2020-05-16 14:00] VITALS: BP 128/62
[2020-05-16] MEDS: PRAMIPEXOLE 0.25 MG TAB PO SCH (21:23)
[2020-05-16 22:00] VITALS: BP 98/58
[2020-05-17 06:00] VITALS: BP 111/52
[2020-05-17] MEDS: LEVOTHYROXINE 50MCG TABLET (0.05MG) PO SCH (06:40)
[2020-05-17] MEDS: amLODIPine 10 MG TAB PO SCH (09:00)
[2020-05-17] MEDS: CALCITRIOL 0.25 MCG CAP (S0169) PO SCH ×2 (09:00→09:19)
[2020-05-17] MEDS: GABAPENTIN 300 MG CAP PO SCH ×3 (09:17→21:43)
[2020-05-17] MEDS: HEPARIN SOD (PORCINE) 5000UNITS/ML 1ML VIAL/SYRINGE SC SCH ×2 (09:17→21:42)
[2020-05-17] MEDS: TORSEMIDE 100 MG TAB PO SCH (09:18)
[2020-05-17] MEDS: POTASSIUM CHLORIDE 10 MEQ SR TABLET PO SCH (09:18)
[2020-05-17] MEDS: TOPIRAMATE (TopAMAX) 25 MG TAB PO SCH ×2 (09:19→21:43)
[2020-05-17] MEDS: TICAGRELOR 90 MG TABLET (BRILINTA) PO SCH ×2 (09:19→21:43)
[2020-05-17] MEDS: CALCIUM/VITAMIN D 500 MG TAB PO SCH ×2 (09:19→21:42)
[2020-05-17] MEDS: ATORVASTATIN 10 MG TAB PO SCH (09:19)
[2020-05-17] MEDS: SPIRONOLACTONE 12.5MG PER 1/2 TABLET PO SCH (09:19)
[2020-05-17] MEDS: METOPROLOL TART 25 MG TABLET PO SCH ×2 (09:20→21:46)
[2020-05-17] MEDS: PERCOCET 5MG/325MG TAB PO PRN (09:20)
[2020-05-17] MEDS ORDERED: TORSEMIDE (DEMADEX) 50 MG PER 1/2 TAB PO SCH (09:30)
[2020-05-17 14:00] VITALS: BP 122/58
[2020-05-17] MEDS: PRAMIPEXOLE 0.25 MG TAB PO SCH (21:43)
[2020-05-17 22:00] VITALS: BP 120/56
[2020-05-18 06:00] VITALS: BP 107/52
[2020-05-18] MEDS: LEVOTHYROXINE 50MCG TABLET (0.05MG) PO SCH (06:30)
[2020-05-18] MEDS: METOPROLOL TART 25 MG TABLET PO SCH ×2 (09:00→22:21)
[2020-05-18] MEDS: amLODIPine 10 MG TAB PO SCH (09:00)
[2020-05-18] MEDS: CALCITRIOL 0.25 MCG CAP (S0169) PO SCH (09:00)
[2020-05-18] MEDS: TORSEMIDE (DEMADEX) 50 MG PER 1/2 TAB PO SCH (09:00)
[2020-05-18] MEDS: SPIRONOLACTONE 12.5MG PER 1/2 TABLET PO SCH (09:00)
[2020-05-18] MEDS: TOPIRAMATE (TopAMAX) 25 MG TAB PO SCH ×2 (09:00→22:20)
[2020-05-18] MEDS: CALCIUM/VITAMIN D 500 MG TAB PO SCH ×2 (09:44→22:20)
[2020-05-18] MEDS: TICAGRELOR 90 MG TABLET (BRILINTA) PO SCH ×2 (09:44→22:19)
[2020-05-18] MEDS: GABAPENTIN 300 MG CAP PO SCH ×3 (09:44→22:20)
[2020-05-18] MEDS: POTASSIUM CHLORIDE 10 MEQ SR TABLET PO SCH (09:44)
[2020-05-18] MEDS: HEPARIN SOD (PORCINE) 5000UNITS/ML 1ML VIAL/SYRINGE SC SCH ×2 (09:44→22:19)
[2020-05-18] MEDS: ATORVASTATIN 10 MG TAB PO SCH (09:45)
[2020-05-18] MEDS: PRAMIPEXOLE 0.25 MG TAB PO SCH (22:19)
[2020-05-19 06:00] VITALS: BP 118/55
[2020-05-19] MEDS: LEVOTHYROXINE 50MCG TABLET (0.05MG) PO SCH (06:35)
[2020-05-19] MEDS: amLODIPine 10 MG TAB PO SCH (09:00)
[2020-05-19] MEDS: CALCITRIOL 0.25 MCG CAP (S0169) PO SCH ×2 (09:00→09:17)
[2020-05-19] MEDS: SPIRONOLACTONE 12.5MG PER 1/2 TABLET PO SCH (09:00)
[2020-05-19] MEDS: TORSEMIDE (DEMADEX) 50 MG PER 1/2 TAB PO SCH (09:00)
[2020-05-19] MEDS: DOCUSATE SOD LIQ 100MG/10ML UDC PO SCH ×2 (09:00→21:46)
[2020-05-19] MEDS: METOPROLOL TART 25 MG TABLET PO SCH ×2 (09:00→21:53)
[2020-05-19] MEDS: ATORVASTATIN 10 MG TAB PO SCH (09:14)
[2020-05-19] MEDS: POTASSIUM CHLORIDE 10 MEQ SR TABLET PO SCH (09:14)
[2020-05-19] MEDS: CALCIUM/VITAMIN D 500 MG TAB PO SCH ×2 (09:15→21:47)
[2020-05-19] MEDS: PERCOCET 5MG/325MG TAB PO PRN (09:15)
[2020-05-19] MEDS: GABAPENTIN 300 MG CAP PO SCH ×3 (09:16→21:54)
[2020-05-19] MEDS: HEPARIN SOD (PORCINE) 5000UNITS/ML 1ML VIAL/SYRINGE SC SCH ×2 (09:16→21:54)
[2020-05-19] MEDS: TICAGRELOR 90 MG TABLET (BRILINTA) PO SCH ×2 (09:32→21:47)
[2020-05-19] MEDS: TOPIRAMATE (TopAMAX) 25 MG TAB PO SCH ×2 (09:32→21:00)
[2020-05-19] MEDS ORDERED: BISACODYL 10 MG SUPP PR PRN (14:00)
[2020-05-19] MEDS: PRAMIPEXOLE 0.25 MG TAB PO SCH (21:48)
[2020-05-20 06:00] VITALS: BP 110/49
[2020-05-20] MEDS: LEVOTHYROXINE 50MCG TABLET (0.05MG) PO SCH (06:36)
[2020-05-20] MEDS: METOPROLOL TART 25 MG TABLET PO SCH ×2 (09:00→20:25)
[2020-05-20] MEDS: CALCITRIOL 0.25 MCG CAP (S0169) PO SCH (09:00)
[2020-05-20] MEDS: TORSEMIDE (DEMADEX) 50 MG PER 1/2 TAB PO SCH (09:00)
[2020-05-20] MEDS: SPIRONOLACTONE 12.5MG PER 1/2 TABLET PO SCH (09:00)
[2020-05-20] MEDS: amLODIPine 10 MG TAB PO SCH (09:00)
[2020-05-20] MEDS: TICAGRELOR 90 MG TABLET (BRILINTA) PO SCH ×2 (09:40→20:25)
[2020-05-20] MEDS: ATORVASTATIN 10 MG TAB PO SCH (09:41)
[2020-05-20] MEDS: POTASSIUM CHLORIDE 10 MEQ SR TABLET PO SCH (09:41)
[2020-05-20] MEDS: DOCUSATE SOD LIQ 100MG/10ML UDC PO SCH ×3 (09:41→20:40)
[2020-05-20] MEDS: TOPIRAMATE (TopAMAX) 25 MG TAB PO SCH ×2 (09:41→20:26)
[2020-05-20] MEDS: CALCIUM/VITAMIN D 500 MG TAB PO SCH ×2 (09:41→20:23)
[2020-05-20] MEDS: GABAPENTIN 300 MG CAP PO SCH ×3 (09:41→20:25)
[2020-05-20] MEDS: HEPARIN SOD (PORCINE) 5000UNITS/ML 1ML VIAL/SYRINGE SC SCH ×2 (09:42→20:26)
[2020-05-20] MEDS: PRAMIPEXOLE 0.25 MG TAB PO SCH (20:23)
[2020-05-21 06:00] VITALS: BP 139/59
[2020-05-21] MEDS: LEVOTHYROXINE 50MCG TABLET (0.05MG) PO SCH (06:34)
[2020-05-21] MEDS: TICAGRELOR 90 MG TABLET (BRILINTA) PO SCH ×2 (08:42→20:57)
[2020-05-21] MEDS: GABAPENTIN 300 MG CAP PO SCH ×3 (08:42→20:58)
[2020-05-21] MEDS: TORSEMIDE (DEMADEX) 50 MG PER 1/2 TAB PO SCH (08:42)
[2020-05-21] MEDS: DOCUSATE SOD LIQ 100MG/10ML UDC PO SCH ×2 (08:42→21:00)
[2020-05-21] MEDS: TOPIRAMATE (TopAMAX) 25 MG TAB PO SCH ×2 (08:43→20:57)
[2020-05-21] MEDS: CALCIUM/VITAMIN D 500 MG TAB PO SCH ×2 (08:43→20:57)
[2020-05-21] MEDS: ATORVASTATIN 10 MG TAB PO SCH (08:43)
[2020-05-21] MEDS: SPIRONOLACTONE 12.5MG PER 1/2 TABLET PO SCH (08:43)
[2020-05-21] MEDS: CALCITRIOL 0.25 MCG CAP (S0169) PO SCH (08:44)
[2020-05-21] MEDS: amLODIPine 10 MG TAB PO SCH (08:44)
[2020-05-21] MEDS: POTASSIUM CHLORIDE 10 MEQ SR TABLET PO SCH (08:44)
[2020-05-21] MEDS: METOPROLOL TART 25 MG TABLET PO SCH ×2 (08:44→20:58)
[2020-05-21] MEDS: HEPARIN SOD (PORCINE) 5000UNITS/ML 1ML VIAL/SYRINGE SC SCH ×2 (08:45→20:57)
[2020-05-21] MEDS: PRAMIPEXOLE 0.25 MG TAB PO SCH (20:58)
[2020-05-22 06:00] VITALS: BP 92/49
[2020-05-22] MEDS: LEVOTHYROXINE 50MCG TABLET (0.05MG) PO SCH (06:13)
[2020-05-22] MEDS: TORSEMIDE (DEMADEX) 50 MG PER 1/2 TAB PO SCH (09:00)
[2020-05-22] MEDS: SPIRONOLACTONE 12.5MG PER 1/2 TABLET PO SCH (09:00)
[2020-05-22] MEDS: DOCUSATE SOD LIQ 100MG/10ML UDC PO SCH ×2 (09:00→21:00)
[2020-05-22] MEDS: METOPROLOL TART 25 MG TABLET PO SCH ×2 (09:00→21:00)
[2020-05-22] MEDS: amLODIPine 10 MG TAB PO SCH (09:00)
[2020-05-22] MEDS: POTASSIUM CHLORIDE 10 MEQ SR TABLET PO SCH (09:00)
[2020-05-22] MEDS: CALCIUM/VITAMIN D 500 MG TAB PO SCH ×2 (10:43→21:16)
[2020-05-22] MEDS: HEPARIN SOD (PORCINE) 5000UNITS/ML 1ML VIAL/SYRINGE SC SCH ×2 (10:43→21:17)
[2020-05-22] MEDS: GABAPENTIN 300 MG CAP PO SCH ×3 (10:43→21:15)
[2020-05-22] MEDS: ATORVASTATIN 10 MG TAB PO SCH (10:44)
[2020-05-22] MEDS: CALCITRIOL 0.25 MCG CAP (S0169) PO SCH (10:44)
[2020-05-22] MEDS: TICAGRELOR 90 MG TABLET (BRILINTA) PO SCH ×2 (10:44→21:16)
[2020-05-22] MEDS: TOPIRAMATE (TopAMAX) 25 MG TAB PO SCH ×2 (10:44→21:16)
[2020-05-22 10:49] VITALS: BP 90/62
--- NOTE | 2020-05-22 12:13 | IPNPDOC ---
Text Note Date of Service The patient was seen on 05/21/20. NOTE Subjective: No any acute event overnight. Patient complains of lower back pain, exacerbated with movement. Will order new labs for tomorrow. PHYSICAL EXAM: VITALS: As below. GENERAL APPEARANCE: NAD HEENT: no scleral icterus, no JVD, EOMI CARDIOVASCULAR: S1S2 LUNGS: CTA ABDOMEN: soft & not tender w palpitation EXTREMITIES: no cyanosis, + 1 legs swelling, palpation over L1-L2 tender NEUROLOGICAL: cranial nerve function from 2-12 intact intact, follows commands, speech not dysarthric Labs and Radiology: reviewed. Assessment/Plan: Patient is 89 years old female with past medical history of hypertension, dementia, hypothyroidism, osteoporosis, coronary artery diseases presented to the hospital after history of mechanical fall. According to her family patient most likely developed mechanical fall prior because in the morning she was complaining of severe back pain. Patient lives alone. Patient was recently diagnosed with advanced dementia and she does not remember about fall. In ER patient was found to have leukocytosis of 12.4, hemoglobin 11.3, creatinine 1.5. Spinal CT showed Interval wedge compression deformity at L1 with approximately 25% loss of anterior vertebral body height. Healing sclerosis. New from September 07, 2018. There are fractures of the left transverse processes at L1 and L2 in addition. Old fusion L4-5 and right laminectomy L4-5. The right L5 fracture identified on September 07, 2018 has healed. Dementia Patient will need placement Compression fracture of L1 lumbar vertebra gabapentin and percocet. Chronic Back pain Lumber herniation s/p LUMBAR LAMINECTOMY 2000 L3 & L4 HERNIATION X 2 2002 Gabapentin, percocet Hypertension on torsemide, spironolactone, metoprolol, amlodipine Hypothyroidism Synthroid RLS pramipexole HLD statin Osteoporosis Alendronate Vit D deficiency Calcium supplementation and vitamin D CAD S/P 2 DRUG-ELUTING STENTS PLACED IN THE LAD 09/13/2017 Brilinta, statin, metoprolol SSS s/p pacemaker 2010 CHF torsemide and spironolactone Euvolemic. Migraine Topamax GERD/Peoples's Esophagus Renal Stone s/p lithotripsy CKD stage 3 creatinine stable. VS,Fishbone, I+O VS, Fishbone, I+O Vital Signs Date Time Temp Pulse Resp B/P (MAP) Pulse Ox O2 Delivery O2 Flow Rate FiO2 05/21/20 20:58 78 128/68 05/21/20 06:00 98.4 16 97 Room Air I&O- Last 24 Hours up to 6 AM 05/21/20 07:00 Intake Total 1190 ml Output Total 350 ml Balance 840 ml SAI LOVETT MD May 21, 2020 21:25
[2020-05-22 12:56] LABS: HEMATOCRIT 32.3 % (36.0-47.0); HEMOGLOBIN 10.1 g/dl (12.0-15.5); MEAN CORPUSCULAR HEMOGLOBIN 29.7 pg (27.0-33.0); MEAN CORPUSCULAR HGB CONC 31.3 g/dl (32.0-36.5); PLATELET COUNT, AUTOMATED 336 10^3/uL (150-450); WHITE BLOOD COUNT 9.7 10^3/uL (4.0-10.0)
[2020-05-22 13:21] LABS: CALCIUM LEVEL 9.3 MG/DL (8.8-10.2); CREATININE FOR GFR 1.5 MG/DL (0.55-1.30); GLOMERULAR FILTRATION RATE 34.9 (>32); POTASSIUM SERUM 3.9 MEQ/L (3.5-5.1)
[2020-05-22] MEDS: PRAMIPEXOLE 0.25 MG TAB PO SCH (21:17)
[2020-05-23 06:00] VITALS: BP 144/62
[2020-05-23] MEDS: ALENDRONATE 35MG TABLET PO SCH (06:00)
[2020-05-23] MEDS: LEVOTHYROXINE 50MCG TABLET (0.05MG) PO SCH (06:31)
[2020-05-23] MEDS ORDERED: ALEN35TA54 PO (07:21)
[2020-05-23] MEDS ORDERED: ACET1TAB55 PO (07:21)
[2020-05-23] MEDS: METOPROLOL TART 25 MG TABLET PO SCH ×2 (09:00→22:01)
[2020-05-23] MEDS: DOCUSATE SOD LIQ 100MG/10ML UDC PO SCH ×2 (09:00→22:01)
[2020-05-23] MEDS: POTASSIUM CHLORIDE 10 MEQ SR TABLET PO SCH (09:00)
[2020-05-23] MEDS: TOPIRAMATE (TopAMAX) 25 MG TAB PO SCH ×2 (09:00→21:59)
[2020-05-23] MEDS: CALCITRIOL 0.25 MCG CAP (S0169) PO SCH (09:00)
[2020-05-23] MEDS: HEPARIN SOD (PORCINE) 5000UNITS/ML 1ML VIAL/SYRINGE SC SCH ×2 (09:33→21:59)
[2020-05-23] MEDS: TICAGRELOR 90 MG TABLET (BRILINTA) PO SCH ×2 (09:35→21:59)
[2020-05-23] MEDS: ATORVASTATIN 10 MG TAB PO SCH (09:35)
[2020-05-23] MEDS: CALCIUM/VITAMIN D 500 MG TAB PO SCH ×2 (09:36→21:59)
[2020-05-23] MEDS: GABAPENTIN 300 MG CAP PO SCH ×3 (09:36→21:59)
[2020-05-23] MEDS: TORSEMIDE (DEMADEX) 50 MG PER 1/2 TAB PO SCH (09:36)
[2020-05-23] MEDS: SPIRONOLACTONE 12.5MG PER 1/2 TABLET PO SCH (09:36)
[2020-05-23] MEDS: PRAMIPEXOLE 0.25 MG TAB PO SCH (21:59)
[2020-05-24 06:00] VITALS: BP 106/61
[2020-05-24] MEDS: LEVOTHYROXINE 50MCG TABLET (0.05MG) PO SCH (06:32)
[2020-05-24] MEDS: DOCUSATE SOD LIQ 100MG/10ML UDC PO SCH (08:39)
[2020-05-24] MEDS: TOPIRAMATE (TopAMAX) 25 MG TAB PO SCH (08:40)
[2020-05-24] MEDS: SPIRONOLACTONE 12.5MG PER 1/2 TABLET PO SCH (08:40)
[2020-05-24] MEDS: HEPARIN SOD (PORCINE) 5000UNITS/ML 1ML VIAL/SYRINGE SC SCH (08:40)
[2020-05-24 08:41] VITALS: BP 106/61
[2020-05-24] MEDS: CALCIUM/VITAMIN D 500 MG TAB PO SCH (08:41)
[2020-05-24] MEDS: METOPROLOL TART 25 MG TABLET PO SCH (08:41)
[2020-05-24] MEDS: GABAPENTIN 300 MG CAP PO SCH (08:41)
[2020-05-24] MEDS: TORSEMIDE (DEMADEX) 50 MG PER 1/2 TAB PO SCH (08:41)
[2020-05-24] MEDS: TICAGRELOR 90 MG TABLET (BRILINTA) PO SCH (08:41)
[2020-05-24] MEDS: CALCITRIOL 0.25 MCG CAP (S0169) PO SCH ×2 (08:42→09:00)
[2020-05-24] MEDS: POTASSIUM CHLORIDE 10 MEQ SR TABLET PO SCH (08:42)
[2020-05-24] MEDS: ATORVASTATIN 10 MG TAB PO SCH (08:42)
--- NOTE | 2020-05-24 13:14 | DS.PDOC ---
Discharge Summary General Date of Admission May 15, 2020 at 15:42 Date of Discharge 05/24/20 Discharge Summary PROCEDURES PERFORMED DURING STAY: [None]. DISCHARGE DIAGNOSES: Compression fracture of L1 lumbar vertebra and fractures of transverse processes of the L1 and L2 vertebra s/p mechanical fall. SECONDARY DIAGNOSIS: Dementia Chronic Back pain/Lumber disc herniation s/p LUMBAR LAMINECTOMY 2000 CAD S/P 2 DRUG-ELUTING STENTS PLACED IN THE LAD 09/13/2017 HTN RLS Hypothyroid HLD SSS s/p pacemaker 2010 CHF Migraine GERD/Peoples's Esophagus Renal Stone s/p lithotripsy CKD stage 3 Osteoporosis Vit D deficiency COMPLICATIONS/CHIEF COMPLAINT: Compression Fracture Of L1 Lumbar Vertebra. HOSPITAL COURSE: Patient is 89 years old female with past medical history of hypertension, dementia, hypothyroidism, osteoporosis, coronary artery diseases presented to the hospital after history of mechanical fall. According to her fam rebeca patient most likely developed mechanical fall prior because in the morning she was complaining of severe back pain. Patient lives alone. Patient was recently diagnosed with advanced dementia and she does not remember about fall. In ER patient was found to have leukocytosis of 12.4, hemoglobin 11.3, creatinine 1.5. Spinal CT showed Interval wedge compression deformity at L1 with approximately 25% loss of anterior vertebral body height. Healing sclerosis. New from September 07, 2018. There are fractures of the left transverse processes at L1 and L2 in addition. Old fusion L4-5 and right laminectomy L4-5. The right L5 fracture identified on September 07, 2018 has healed. Dementia detention placement. Compression fracture of L1 lumbar vertebra gabapentin and percocet. Chronic Back pain Lumber herniation s/p LUMBAR LAMINECTOMY 2000 L3 & L4 HERNIATION X 2 2002 Gabapentin, percocet Hypertension on torsemide, spironolactone, metoprolol, amlodipine Hypothyroidism Synthroid RLS pramipexole HLD statin Osteoporosis Alendronate Vit D deficiency Calcium supplementation and vitamin D CAD S/P 2 DRUG-ELUTING STENTS PLACED IN THE LAD 09/13/2017 Brilinta, statin, metoprolol SSS s/p pacemaker 2010 CHF torsemide and spironolactone Euvolemic. Migraine Topamax GERD/Peoples's Esophagus Renal Stone s/p lithotripsy CKD stage 3 creatinine stable. DISCHARGE MEDICATIONS: Please see below. ALLERGIES: Please see below. PHYSICAL EXAMINATION ON DISCHARGE: VITAL SIGNS: Please see below. GENERAL APPEARANCE: NAD HEENT: no scleral icterus, no JVD, EOMI CARDIOVASCULAR: S1S2 LUNGS: CTA ABDOMEN: soft & not tender w palpitation EXTREMITIES: no cyanosis, + 1 legs swelling, palpation over L1-L2 tender NEUROLOGICAL: cranial nerve function from 2-12 intact intact, follows commands, speech not dysarthric LABORATORY DATA: Please see below. ACTIVITY: [As tolerated]. DIET: As tolerated DISCHARGE PLAN: DISPOSITION: [facility]. DISCHARGE CONDITION: [Stable]. TIME SPENT ON DISCHARGE: 35 minutes. Vital Signs/I&Os Vital Signs Date Time Temp Pulse Resp B/P (MAP) Pulse Ox O2 Delivery O2 Flow Rate FiO2 05/24/20 08:41 60 106/61 05/24/20 06:00 98.6 18 96 Room Air I&O- Last 24 Hours up to 6 AM 05/24/20 06:00 Intake Total 2150 ml Output Total 60 ml Balance 2090 ml Laboratory Data CBC/BMP Item Value Date Time White Blood Count 9.7 10^3/uL 05/22/20 1242 Red Blood Count 3.40 10^6/uL L 05/22/20 1242 Hemoglobin 10.1 g/dl L 05/22/20 1242 Hematocrit 32.3 % L 05/22/20 1242 Mean Corpuscular Volume 95.0 fl 05/22/20 1242 Mean Corpuscular Hemoglobin 29.7 pg 05/22/20 1242 Mean Corpuscular Hemoglobin Concent 31.3 g/dl L 05/22/20 1242 Red Cell Distribution Width 14.1 % 05/22/20 1242 Platelet Count 336 10^3/uL 05/22/20 1242 Sodium Level 138 MEQ/L 05/22/20 1242 Potassium Level 3.9 MEQ/L 05/22/20 1242 Chloride Level 103 MEQ/L 05/22/20 1242 Carbon Dioxide Level 26 MEQ/L 05/22/20 1242 Anion Gap 9 MEQ/L 05/22/20 1242 Blood Urea Nitrogen 24 MG/DL H 05/22/20 1242 Creatinine 1.50 MG/DL H 05/22/20 1242 Glomerular Filtration Rate 34.9 05/22/20 1242 Fasting Glucose 101 MG/DL H 05/22/20 1242 Calcium Level 9.3 MG/DL 05/22/20 1242 Discharge Medications Scheduled Alendronate Sodium (Alendronate Sodium) 35 Mg Tablet, 35 MG PO Tu@0600 Atorvastatin Calcium (Atorvastatin Calcium) 10 Mg Tab, 10 MG PO DAILY, (Report ed) Calcitriol (Calcitriol) 0.25 Mcg Capsule, 0.25 MCG PO DAILY, (Reported) Cholecalciferol (Vitamin D3) (Vitamin D3) 125 Mcg Tablet, 125 MCG PO DAILY, (Reported) Dexlansoprazole (Dexilant) 60 Mg Cap, 60 MG PO DAILY, (Reported) Gabapentin (Gabapentin) 300 Mg Cap, 300 MG PO TID, (Reported) Levothyroxine Sodium (Levothyroxine Sodium) 50 Mcg Tab, 50 MCG PO DAILY, (Reported) Metoprolol Tartrate (Metoprolol Tartrate) 25 Mg Tab, 25 MG PO BID, (Reported) Potassium Chloride (Potassium Chloride) 10 Meq Capsule.er, 20 MEQ PO DAILY, (Reported) @ 1300 Pramipexole Di-HCl (Mirapex) 0.25 Mg Tab, 0.25 MG PO QHS, (Reported) MAY TAKE AN EXTRA PRN Spironolactone (Spironolactone) 25 Mg Tablet, 12.5 MG PO DAILY, (Reported) Ticagrelor Base (Brilinta) 90 Mg Tab, 90 MG PO BID, (Reported) Topiramate (Topiramate) 50 Mg Tab, 50 MG PO BID, (Reported) Torsemide (Torsemide) 100 Mg Tablet, 50 MG PO DAILY, (Reported) @ 1300 Scheduled PRN Acetaminophen (Acetaminophen) 325 Mg Tablet, 650 MG PO Q4H PRN for MILD PAIN OR FEVER Carboxymethylcellulose Sodium (Thera Tears) 0.25 % Dori, 2 DROP OU QID PRN for DR Y EYES, (Reported) Nitroglycerin (Nitroglycerin) 0.4 Mg Sub, 0.4 MG SL NITRO PRN for CHEST PAIN, (Reported) Allergies Coded Allergies: aspirin (Verified Allergy, Severe, swollen mouth, 05/15/20) SAI LOVETT MD May 24, 2020 13:14
== END 2020-05-24 10:57 | DRG 552 ==
LOC: M ED 09:10 → EDBD 09:10 → M ED INP 15:42 → ENRESERV 18:47 → M MSPAV 21:55
PROVIDERS: ADMIT Internal Medicine; ATTEND Internal Medicine Nephrology
DX: S32.010A Wedge compression fracture of first lumbar vertebra, initial encounter for closed fracture (principal); I13.0 Hypertensive heart and chronic kidney disease with heart failure and stage 1 through stage 4 chronic kidney disease, or unspecified chronic kidney disease; S32.020A Wedge compression fracture of second lumbar vertebra, initial encounter for closed fracture; F03.90 Unspecified dementia, unspecified severity, without behavioral disturbance, psychotic disturbance, mood disturbance, and anxiety; E03.9 Hypothyroidism, unspecified; I50.9 Heart failure, unspecified; M81.0 Age-related osteoporosis without current pathological fracture; I25.10 Atherosclerotic heart disease of native coronary artery without angina pectoris; N18.30 Chronic kidney disease, stage 3 unspecified; W19.XXXA Unspecified fall, initial encounter; Y92.009 Unspecified place in unspecified non-institutional (private) residence as the place of occurrence of the external cause; G25.81 Restless legs syndrome; E55.9 Vitamin D deficiency, unspecified; E78.00 Pure hypercholesterolemia, unspecified; K22.70 Barrett's esophagus without dysplasia; M51.36 Other intervertebral disc degeneration, lumbar region; G43.909 Migraine, unspecified, not intractable, without status migrainosus; I49.5 Sick sinus syndrome; Z95.0 Presence of cardiac pacemaker; Z98.41 Cataract extraction status, right eye; Z98.42 Cataract extraction status, left eye; Z95.5 Presence of coronary angioplasty implant and graft; Z88.6 Allergy status to analgesic agent; Z79.899 Other long term (current) drug therapy; Z20.828 Contact with and (suspected) exposure to other viral communicable diseases

== ENCOUNTER → 2020-05-25 | Outpatient (REF) ==
[~2020-05-25] MED LIST changes: +ACET1TAB55 PO; +ALEN35TA54 PO; +CALC1CAP31 PO; +TORS100T PO
[2020-05-25 15:09] LABS: APPEARANCE, URINE HAZY (CLEAR); BACTERIA, URINE AUTO 1+ (NEGATIVE); BILIRUBIN, URINE AUTO NEGATIVE (NEGATIVE); BLOOD, URINE BLOOD 1+ (NEGATIVE); COLOR, URINE YELLOW (YELLOW); GLUCOSE, URINE (UA) AUTO NEGATIVE (NEGATIVE); KETONE, URINE AUTO NEGATIVE (NEGATIVE); LEUKOCYTE ESTERASE, URINE AUTO NEGATIVE (NEGATIVE); MUCUS, URINE SMALL (NEGATIVE); NITRITE, URINE AUTO NEGATIVE (NEGATIVE); PROTEIN, URINE AUTO NEGATIVE (NEGATIVE); RBC, URINE AUTO 4 /HPF (0-3); SQUAMOUS EPITHELIAL CELL UR AU 16 /HPF (0-6); UROBILINOGEN, URINE AUTO 0.2 mg/dL (0.0-2.0); WBC, URINE AUTO 2 /HPF (0-3)
== END ==
LOC: SKLAB2 14:26
DX: N18.9 Chronic kidney disease, unspecified (principal)

== ENCOUNTER → 2020-05-25 | Outpatient (REF) | payer MEDICARE, MEDICAID ==
[2020-05-25 11:52] LABS: C REACTIVE PROTEIN QUANTITATIV 6.98 MG/DL (0.00-0.30); FREE T4 1.36 NG/DL (0.76-1.46); PHOSPHORUS LEVEL 4.4 MG/DL (2.5-4.9); THYROID STIMULATING HORMONE 11.9 uIU/ML (0.358-3.740); TOTAL 25(OH) VITAMIN D 64.7 NG/ML (30.0-100.0)
== END ==
LOC: SKLAB7 05-24 16:49
DX: N18.9 Chronic kidney disease, unspecified (principal); R52 Pain, unspecified; E03.9 Hypothyroidism, unspecified; Z79.899 Other long term (current) drug therapy

== ENCOUNTER → 2020-05-26 | Outpatient (REF) ==
--- NOTE | 2020-05-26 12:47 | REP ---
INDICATION: PAIN SWELLING. COMPARISON: None. TECHNIQUE: Four views of the 3rd digit of the right hand FINDINGS: There is diffuse circumferential soft tissue swelling about the proximal interphalangeal joint. That joint and the distal interphalangeal joint are asymmetrically narrowed. There is no evidence of an acute fracture. IMPRESSION: Soft tissue swelling and chronic changes. No evidence of an acute fracture. <Electronically signed by Jasper Rowland > 05/26/20 2099
== END ==
LOC: SKLAB7 11:14
DX: M79.89 Other specified soft tissue disorders (principal)

== ENCOUNTER → 2020-05-30 | Outpatient (REF) ==
[2020-05-30 10:03] LABS: C REACTIVE PROTEIN QUANTITATIV 1.17 MG/DL (0.00-0.30); CALCIUM LEVEL 9.7 MG/DL (8.8-10.2); CREATININE FOR GFR 1.62 MG/DL (0.55-1.30); GLOMERULAR FILTRATION RATE 31.9 (>32); MAGNESIUM LEVEL 2.4 MG/DL (1.8-2.4); POTASSIUM SERUM 4.1 MEQ/L (3.5-5.1); URIC ACID 13.2 MG/DL (2.6-6.0)
== END ==
LOC: SKLAB7 13:24
DX: D64.9 Anemia, unspecified (principal); I25.10 Atherosclerotic heart disease of native coronary artery without angina pectoris; R79.82 Elevated C-reactive protein (CRP); R70.0 Elevated erythrocyte sedimentation rate

== ENCOUNTER → 2020-05-31 | Outpatient (REF) | payer MEDICARE, MEDICAID ==
[~2020-05-31] MED LIST changes: +GABA-282 PO; -GABA-843 PO
== END ==
LOC: SKLAB7 05-24 08:00 → EDSTATUS 06-30 12:40
PROVIDERS: ATTEND Internal Medicine
DX: Z20.828 Contact with and (suspected) exposure to other viral communicable diseases (principal)

== ENCOUNTER → 2020-06-05 | Outpatient (REF) | payer MEDICARE, MEDICAID ==
[~2020-06-05] MED LIST changes: -GABA-282 PO; +GABA-843 PO
[2020-06-05 15:03] LABS: C REACTIVE PROTEIN QUANTITATIV 0.3 MG/DL (0.00-0.30); CALCIUM LEVEL 8.9 MG/DL (8.8-10.2); CREATININE FOR GFR 1.65 MG/DL (0.55-1.30); GLOMERULAR FILTRATION RATE 31.3 (>32); POTASSIUM SERUM 4.9 MEQ/L (3.5-5.1)
== END ==
LOC: SKLAB7 13:37
PROVIDERS: ATTEND Nurse Practitioner Family
DX: M10.9 Gout, unspecified (principal); N18.9 Chronic kidney disease, unspecified

== ENCOUNTER → 2020-06-07 | Outpatient (REF) | payer MEDICARE, MEDICAID ==
[~2020-06-07] MED LIST changes: +GABA-282 PO; -GABA-843 PO
== END ==
LOC: SKLAB7 08:00
PROVIDERS: ATTEND Internal Medicine
DX: Z20.828 Contact with and (suspected) exposure to other viral communicable diseases (principal)

== ENCOUNTER → 2020-06-09 | Outpatient (REF) ==
[~2020-06-09] MED LIST changes: -GABA-282 PO; +GABA-843 PO
[2020-06-09 09:16] LABS: C REACTIVE PROTEIN QUANTITATIV 3.17 MG/DL (0.00-0.30); CALCIUM LEVEL 8.3 MG/DL (8.8-10.2); CREATININE FOR GFR 1.18 MG/DL (0.55-1.30); POTASSIUM SERUM 4.4 MEQ/L (3.5-5.1)
[2020-06-09 09:58] LABS: PTH INTACT 30.2 PG/ML (18.5-88.0)
== END ==
LOC: SKLAB7 07:00
DX: M81.0 Age-related osteoporosis without current pathological fracture (principal); I10 Essential (primary) hypertension

== ENCOUNTER → 2020-06-10 | Outpatient (REF) | payer MEDICARE, MEDICAID ==
[~2020-06-10] MED LIST changes: +GABA-282 PO; -GABA-843 PO
== END ==
LOC: SKLAB7 08:00
PROVIDERS: ATTEND Internal Medicine
DX: Z20.828 Contact with and (suspected) exposure to other viral communicable diseases (principal)

== ENCOUNTER → 2020-06-14 | Outpatient (REF) | payer MEDICARE, MEDICAID ==
[~2020-06-14] MED LIST changes: -GABA-282 PO; +GABA-843 PO
== END ==
LOC: SKLAB7 08:37
DX: Z20.828 Contact with and (suspected) exposure to other viral communicable diseases (principal)

== ENCOUNTER → 2020-06-20 | Outpatient (REF) | payer MEDICARE, MEDICAID ==
[2020-06-20 10:45] LABS: CALCIUM LEVEL 8.9 MG/DL (8.8-10.2); CREATININE FOR GFR 1.27 MG/DL (0.55-1.30); GLOMERULAR FILTRATION RATE 42.3 (>32); POTASSIUM SERUM 4.1 MEQ/L (3.5-5.1); URIC ACID 3.6 MG/DL (2.6-6.0)
== END ==
LOC: SKLAB7 07:00
DX: M10.9 Gout, unspecified (principal)

== ENCOUNTER → 2020-06-21 | Outpatient (REF) | payer MEDICARE, MEDICAID | LOC: SKLAB7 07:00 | DX: Z20.828 Contact with and (suspected) exposure to other viral communicable diseases (principal) ==

== ENCOUNTER → 2020-06-27 | Outpatient (REF) | payer MEDICARE, MEDICAID ==
[2020-06-27 11:58] LABS: CALCIUM LEVEL 9.6 MG/DL (8.8-10.2); CREATININE FOR GFR 1.86 MG/DL (0.55-1.30); GLOMERULAR FILTRATION RATE 27.2 (>32); POTASSIUM SERUM 3.3 MEQ/L (3.5-5.1)
== END ==
LOC: SKLAB7 11:55
DX: R60.9 Edema, unspecified (principal)

== ENCOUNTER → 2020-06-28 | Outpatient (REF) | payer MEDICARE, MEDICAID | LOC: SKLAB7 07:00 | DX: Z20.828 Contact with and (suspected) exposure to other viral communicable diseases (principal) ==

== ENCOUNTER → 2020-07-05 | Outpatient (REF) | payer MEDICARE, MEDICAID | LOC: SKLAB7 09:37 | DX: Z20.828 Contact with and (suspected) exposure to other viral communicable diseases (principal) ==

== ENCOUNTER → 2020-07-11 | Outpatient (REF) | payer MEDICARE, MEDICAID ==
[2020-07-11 10:12] LABS: CALCIUM LEVEL 9.3 MG/DL (8.8-10.2); CREATININE FOR GFR 1.83 MG/DL (0.55-1.30); GLOMERULAR FILTRATION RATE 27.7 (>32); POTASSIUM SERUM 3.9 MEQ/L (3.5-5.1); URIC ACID 5.1 MG/DL (2.6-6.0)
== END ==
LOC: SKLAB7 07:00
DX: E87.6 Hypokalemia (principal)

== ENCOUNTER → 2020-07-12 | Outpatient (REF) | payer MEDICARE, MEDICAID ==
[~2020-07-12] MED LIST changes: +GABA-282 PO; -GABA-843 PO
== END ==
LOC: SKLAB7 07-12 07:00
PROVIDERS: ATTEND Internal Medicine
DX: Z11.59 Encounter for screening for other viral diseases (principal)

== ENCOUNTER → 2020-07-19 | Outpatient (REF) | payer MEDICARE, MEDICAID | LOC: SKLAB7 10:46 | PROVIDERS: ATTEND Internal Medicine | DX: Z20.822 Contact with and (suspected) exposure to COVID-19 (principal) ==

== ENCOUNTER → 2020-07-25 | Outpatient (REF) | payer MEDICARE, MEDICAID | LOC: SKLAB3 07:00 | DX: E03.9 Hypothyroidism, unspecified (principal) ==

== ENCOUNTER → 2020-07-26 | Outpatient (REF) | payer MEDICARE, MEDICAID | LOC: SKLAB7 14:17 | PROVIDERS: ATTEND Internal Medicine | DX: Z20.822 Contact with and (suspected) exposure to COVID-19 (principal) ==

== ENCOUNTER → 2020-07-27 | Outpatient (REF) | payer MEDICARE, MEDICAID ==
[2020-07-27 09:02] LABS: HEMATOCRIT 38.4 % (36.0-47.0); HEMOGLOBIN 12.4 g/dl (12.0-15.5); MEAN CORPUSCULAR HEMOGLOBIN 30.8 pg (27.0-33.0); MEAN CORPUSCULAR HGB CONC 32.3 g/dl (32.0-36.5); MEAN CORPUSCULAR VOLUME 95.5 fl (80.0-96.0); PLATELET COUNT, AUTOMATED 286 10^3/uL (150-450); RED BLOOD COUNT 4.02 10^6/uL (4.00-5.40); WHITE BLOOD COUNT 7.8 10^3/uL (4.0-10.0)
[2020-07-27 09:16] LABS: C REACTIVE PROTEIN QUANTITATIV 0.3 MG/DL (0.00-0.30); CALCIUM LEVEL 9.6 MG/DL (8.8-10.2); CREATININE FOR GFR 1.58 MG/DL (0.55-1.30); GLOMERULAR FILTRATION RATE 32.9 (>32); POTASSIUM SERUM 4.2 MEQ/L (3.5-5.1); URIC ACID 5.7 MG/DL (2.6-6.0)
[2020-07-27 09:51] LABS: ERYTHROCYTE SEDIMENTATION RATE 39 mm/hr (0-30)
== END ==
LOC: SKLAB7 10:06
DX: I12.9 Hypertensive chronic kidney disease with stage 1 through stage 4 chronic kidney disease, or unspecified chronic kidney disease (principal); N18.9 Chronic kidney disease, unspecified; D63.1 Anemia in chronic kidney disease

== ENCOUNTER → 2020-08-02 | Outpatient (REF) | payer MEDICARE, MEDICAID | LOC: SKLAB7 10:02 | PROVIDERS: ATTEND Internal Medicine | DX: Z20.822 Contact with and (suspected) exposure to COVID-19 (principal) ==

== ENCOUNTER → 2020-08-09 | Outpatient (REF) | payer MEDICARE, MEDICAID | LOC: SKLAB7 14:52 | PROVIDERS: ATTEND Internal Medicine | DX: Z20.822 Contact with and (suspected) exposure to COVID-19 (principal) ==

== ENCOUNTER → 2020-08-10 | Outpatient (REF) | LOC: SKLAB7 08:28 | PROVIDERS: ATTEND Internal Medicine | DX: Z20.822 Contact with and (suspected) exposure to COVID-19 (principal) ==

== ENCOUNTER → 2020-08-14 | Outpatient (REF) | payer MEDICARE, MEDICAID | PROVIDERS: ATTEND Internal Medicine | DX: Z20.822 Contact with and (suspected) exposure to COVID-19 (principal) ==

== ENCOUNTER → 2020-08-15 | Outpatient (REF) | payer MEDICARE, MEDICAID ==
[2020-08-15 12:30] LABS: ALBUMIN 3.3 GM/DL (3.2-5.2); BILIRUBIN,TOTAL 0.3 MG/DL (0.2-1.0); CALCIUM LEVEL 9.7 MG/DL (8.8-10.2); CREATININE FOR GFR 1.83 MG/DL (0.55-1.30); GLOMERULAR FILTRATION RATE 27.7 (>32); POTASSIUM SERUM 3.9 MEQ/L (3.5-5.1); THYROID STIMULATING HORMONE 0.681 uIU/ML (0.358-3.740); TOTAL PROTEIN 6.9 GM/DL (6.4-8.2); URIC ACID 9.2 MG/DL (2.6-6.0)
[2020-08-15 17:44] LABS: PTH INTACT 30.1 PG/ML (18.5-88.0)
== END ==
PROVIDERS: ATTEND Internal Medicine
DX: I12.9 Hypertensive chronic kidney disease with stage 1 through stage 4 chronic kidney disease, or unspecified chronic kidney disease (principal); N18.30 Chronic kidney disease, stage 3 unspecified; E79.9 Disorder of purine and pyrimidine metabolism, unspecified; E03.9 Hypothyroidism, unspecified; E78.9 Disorder of lipoprotein metabolism, unspecified

== ENCOUNTER → 2020-08-21 | Outpatient (REF) | payer MEDICARE, MEDICAID | PROVIDERS: ATTEND Internal Medicine | DX: Z20.822 Contact with and (suspected) exposure to COVID-19 (principal) ==

== ENCOUNTER → 2020-08-28 | Outpatient (REF) | payer MEDICARE, MEDICAID | PROVIDERS: ATTEND Internal Medicine | DX: Z20.822 Contact with and (suspected) exposure to COVID-19 (principal) ==

== ENCOUNTER → 2020-12-19 | Outpatient (REF) | payer MEDICARE, MEDICAID ==
[2020-12-19 11:18] LABS: BASO % 0.3 % (0.0-1.0); EOS # 0.2 10^3/uL (0.0-0.5); EOS % 2.4 % (0.0-3.0); HEMATOCRIT 38.4 % (36.0-47.0); HEMOGLOBIN 12.5 g/dl (12.0-15.5); LYMPH # 2.4 10^3/uL (1.5-5.0); LYMPH % 35.2 % (24.0-44.0); MEAN CORPUSCULAR HEMOGLOBIN 31.7 pg (27.0-33.0); MEAN CORPUSCULAR HGB CONC 32.6 g/dl (32.0-36.5); MEAN CORPUSCULAR VOLUME 97.5 fl (80.0-96.0); MONO # 0.8 10^3/uL (0.0-0.8); MONO % 11.6 % (2.0-8.0); NEUTROPHILS # 3.4 10^3/uL (1.5-8.5); NEUTROPHILS % 50.2 % (36.0-66.0); PLATELET COUNT, AUTOMATED 264 10^3/uL (150-450); RED BLOOD COUNT 3.94 10^6/uL (4.00-5.40); WHITE BLOOD COUNT 6.7 10^3/uL (4.0-10.0)
[2020-12-19 11:36] LABS: ALBUMIN 3.4 GM/DL (3.2-5.2); BILIRUBIN,TOTAL 0.3 MG/DL (0.2-1.0); CALCIUM LEVEL 9.5 MG/DL (8.8-10.2); CHOLESTEROL RISK RATIO 2.86 (<5); CREATININE FOR GFR 1.54 MG/DL (0.55-1.30); GLOMERULAR FILTRATION RATE 33.8 (>32); POTASSIUM SERUM 4.3 MEQ/L (3.5-5.1); PTH INTACT 25.4 PG/ML (18.5-88.0); THYROID STIMULATING HORMONE 2.36 uIU/ML (0.358-3.740); URIC ACID 7.9 MG/DL (2.6-6.0)
== END ==
PROVIDERS: ATTEND Internal Medicine
DX: I25.10 Atherosclerotic heart disease of native coronary artery without angina pectoris (principal); I12.9 Hypertensive chronic kidney disease with stage 1 through stage 4 chronic kidney disease, or unspecified chronic kidney disease; N18.30 Chronic kidney disease, stage 3 unspecified; K22.70 Barrett's esophagus without dysplasia

== ENCOUNTER → 2021-05-10 | Outpatient (CLI) | payer MEDICARE, MEDICAID ==
[~2021-05-10] MED LIST changes: -ALEN35TA54 PO; +ALEN35TA56 PO; +AMLO1TAB24 PO; +CLOP75TA2 PO; +DOXE10CA PO; +METO50TA7 PO; +PROL60SO SC
== END ==
LOC: M LABSMTC 09:34
PROVIDERS: ATTEND Anesthesiology
DX: Z01.818 Encounter for other preprocedural examination (principal); Z11.52 Encounter for screening for COVID-19

== ENCOUNTER 2021-05-15 10:48 | Day surgery (SDC) | payer MEDICARE, MEDICAID ==
[~2021-05-15] VITALS: Ht 149.9 cm; Wt 74.6 kg
[~2021-05-15 10:48] MED LIST changes: +LIDOCAINE 1% MDV 20ML VIAL SQ PRN; +LR 1,000 ML IV ONE; +ceFAZolin SOD 2 GM in IV 1 EA IV ONE
--- OUTSIDE RECORDS SUMMARY | 2021-05-15 10:54 | CCD ---
Author Author [facility] Organization [facility] Address Unknown Phone Unavailable Care Team Providers Care Pet Adoption Counselor Name Role Phone Gwendolyn Ambrose Unavailable PROBLEMS Type Condition ICD9-CM Code [id number] Code Onset Dates Condition S tatus W/U Status Risk SNOMED Code Notes Problem Degenerative disc disease, lumbar M51.36 Active confirmed [id number] She has had 4 prior laminectomies. She has chronic back pain which had not been well palliated with her Vicodin. I tried scheduled tramadol, 3 times a day, as of August 2015 but was ineffective. She apparently had a back support via an fresh work wrapper layer. She received Percocet during her hip fracture recovery and she was taking hydrocodone very rarely but she has been off that for quite some time. She is no longer on gabapentin. He had a vertebral compression fracture in late 2019. 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 Problem Migraine G43.909 Active confirmed [id number] S he had been on Topamax with definite benefit. Dose increased to 50 mg twice daily in February of her neuropathic symptoms of her feet and back pain. She is off that now since her rehabilitation stay. Problem Restless leg syndrome G25.81 Active confirmed [id number] She was on Sinemet and Neurontin in past. She stopped these, and she had been on magnesium as well as Mirapex with hydrocodone at bedtime; I see no medications for her restless legs at present, since her rehabilitation stay. She is also off gabapentin. Historically, she took Requip at bedtime in 2012. Nortriptyline in 2012 was not helpful. As of June 2015 I started her on tramadol, and this seemed to help her restless legs and her chronic back pain, but as of 08/2016 this had lost effectiveness, so she was placed on doxepin which also was not helpful. I will try doxepin again because of pruritus, as of January 2021. Problem Hypothyroidism E03.9 Active confirmed 45470 008 Her last TSH in December 2020 was 2.36 on levothyroxine replacement therapy at 50 mcg p.o. daily. Problem Osteoporosis M81.0 Active confirmed 0194094 6 She is intolerant of bisphosphonate therapy because of her Peoples's esophagus. Last DEXA was in 10/2016 and her t-scores were approximately stable; hips only. Continue vitamin D and calcium supplementation; vitamin D level was 52 in July 2019. She did have a vertebral fracture on 09/07/2018 and a right hip fracture on 09/11/2018, as well as an L1 vertebral compression fracture in May 2020. I started her on Prolia therapy in January 2019. She last had a Prolia dose in August 2020 and this was overlooked at her January 2021 visit. We will try to arrange it. Problem Sick sinus syndrome I49.5 Active confirmed [id number] A pacemaker was placed in 2010 and she is regularly followed by the compliance manager. Problem Vitamin D deficiency E55.9 Active confirmed 40550351 She was on replacement therapy her last vitamin D level in July 2012 was 109 and apparently this therapy was discontinued. She ws started on 4000 units daily when her level was 27 on a lower dose, 07/2013; most recent vitamin D level was 52 in July 2019. Problem Chronic pruritus L29.9 Active confirmed 418 [id number] I will have her try doxepin again as of January 2021. Problem Ankle edema M25.473 Active confirmed 5286104 0 Her ankle edema has become better controlled since her torsemide was increased to 50 mg daily, but now she is doing well on just spironolactone and low-dose torsemide 10 mg every other day subsequent to her rehabilitation stay. This likely relates to venous insufficiency since she has not had clinical evidence of CHF. Support stockings have been recommended in the past. She should elevate her legs when possible. I reduced her torsemide to 10 mg every other day as of mid August 2020 because of her more elevated creatinine. Problem Hypercholesterolemia E78.00 Active confirmed [id number] On Lipitor, and had her dose increased in September 2017 to 10 mg daily after her stent placements. She may need a higher dose statin regardless of her lipid levels. Lipids were optimal as of January 2021 Problem Chronic kidney disease, stage 3b N18.32 Active confirmed 504217611 Her baseline GFR is usually in the 30s. PTH has been elevated and she was started on calcitriol in February 2020. Her most recent creatinine was somewhat higher at 1.83 with a GFR of 28 and a PTH level of 30 in August 2020. I reduced her torsemide to 10 mg every other day because of her elevated creatinine, as of mid August 2020. Problem Hot flashes R23.2 Active confirmed [id number] 7 She has a history of hot flashes. She apparently used to be on estrogen replacement therapy but is no longer on that. It does not seem to be as much of an issue apparently. Problem Insomnia, unspecified G47.00 Active confirmed [id number] She was placed on doxepin as of January 2021. Problem Ureteral stone N20.1 Active confirmed 59623 009 She has a history of kidney stones in the past. She had a stent placed in about 2012 which has been removed. She now has recurrent stones. Stone analysis would be indicated. As far as I can tell, she is not on any prophylactic medication for kidney stones. Details are unclear. Problem Coronary artery disease invo lving [place] coronary artery of [place] heart without angina pectoris I25.10 Active confirmed [id number] She had an elevated troponin when she presented with dyspnea in September 2017 and was referred for cardiac catheterization. Had LAD stent placed and she is no longer maintained on Brilinta therapy in favor of Plavix as of her rehabilitation stay in early 2020. In addition she is on statin, beta cecilio therapy. She was taken off her ARB during her September through October 2018 hospital stay. She apparently is intolerant of aspirin. A follow-up radionuclide stress test in late September 2017 demonstrated an ejection fraction of 76% with no reversible ischemia, and her ejection fraction was normal on echocardiogram in December 2018. 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 Her blood pressure is controlled. Problem Balance disorder R26.89 Active confirmed 387 [id number] We added supplemental Vitamin B12, as of 07/2018. I am not sure she takes that. 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 Active confirmed 015033 06 She had finger pain which she treats to trauma but it was attributed to gout when she was in subacute rehabilitation in late 2019. She was treated with prednisone and UloricI. Her uric acid level was 13. Uloric is excessively expensive and not covered at her assisted living facility and she is off medication at present with no evidence of gout flares. Her uric acid most recently was 9 in August 2020, 7.9 in December 2020. This will be followed. ALLERGIES Allergen (clinical drug ingredient) Drug/Non Drug Allergy do cumented on EMR Reaction Allergy Type Onset Date Status aspirin Aspirin([facility] Code:[address]-29) SWELLING Drug Allergy Active ENCOUNTERS from 1932 to 2021-03-07 Encounter Location Date Provider Diagnosis [place] [id number] [facility] [phone] [place] [address] Feb, Gwendolyn Ambrose IMMUNIZATIONS Vaccine Route Administration Date Status Prolia 60mg/1mL Denosumab SC Subcutaneous Aug 31, 2019 Admini stered Prolia 60mg/1mL Denosumab SC Subcutaneous Aug 21, 2020 Admini stered Influenza 18 yrs & older Flublok IM Intramuscular Jul 22, 2018 Administered Prolia 60mg/1mL Denosumab SC Subcutaneous February 02, 2019 Admini stered Influenza 18 yrs & older Flublok IM Intramuscular Aug 04, 2019 Administered Influenza 6mo & up Fluzone Unknown May 18, 2014 Admin istered COVID-19 dose #2 given elsewhere Unspecified Unknown Aug 22, 2020 Administered COVID-19 dose #1 given elsewhere Unspecified Unknown Aug 01, 2020 Administered Influenza Pharmacy Given Unknown Mar 24, 2020 Adminis tered Influenza (High Dose 65 & up) Unknown Apr 26, 2017 Ad ministered Influenza (High Dose 65 & up) Unknown Apr 30, 2016 Ad ministered Pneumococcal Adult 0.5mL Pneumovax 23 Unknown May 18 14 Administered TDAP 0.5mL (Boostrix) IM Intramuscular Aug 04, 2019 Administe red Pneumococcal 0.5mL Prevnar 13 IM Intramuscular February 02, 2019 A dministered SOCIAL HISTORY Tobacco Use: Social History Observation Description Date Details (start date - stop date) Never Smoker Sex Assigned At : Social History Observation Description Sex Assigned At Unknown Audit Question Answer Notes Total Score: 0 Interpretation: Alcohol Education Sabianist: Question Answer Notes Sabianist 06 Taoist Sexual Hx: Question Answer Notes Had sex in the last 12 months (vaginal, oral, or anal)? No Have you ever had an STD? No Drug and Alcohol Question Answer Notes Total Score: 0 Interpretation: No problems reported BMI Care Goal Follow-Up Question Answer Notes Above Normal BMI Follow-Up Giving encouragement to exercise, Weight monitoring Tobacco Use: Question Answer Notes Are you a: never smoker REASON FOR REFERRAL No Information VITAL SIGNS No information MEDICATIONS Medication SIG (Take, Route, Frequency, Duration) Notes Start Da te End Date Status Doxepin HCl 10 MG 1 capsule at bedtime Orally Once a day for 30 day(s) Jan, Active amLODIPine Besylate 5 MG 1 tablet Orally Once a day for 30 Days Active Metoprolol Tartrate 50 MG 1 tablet with food Orally Twice a day for 30 Days Active Hydrogen Peroxide 3 % as directed Externally Insti ll 4-5 drops into left ear every evening for 5 days for 5 days Aug, Not-Taking Spironolactone 25 mg 1 tablet Orally Once a day for 30 Days Dec, Active diphenhydrAMINE HCl 25 MG 1 capsule at bedtime as need ed Orally Once a day as needed for 30 day(s) Aug, Active Nitroglycerin 0.4 MG as directed Sublingual Every 5 minutes times 3 if needed for chest pain Active Prolia 60 MG/ML as directed Subcutaneous Active Acetaminophen 325 MG 2 tablets as needed Orally every 4 hrs Active Lipitor 10 MG 1 tablet Orally Daily for 30 Days Active Synthroid 50 MCG 1 tab(s) Orally daily for 30 Days Active Milk of Magnesia 2400 MG/30ML 10ml Orally Once daily as need ed for constipation Active Torsemide 10 MG 1 tablet Orally Every other day for 30 days Dec, Active Calcium 600 + Minerals 600-200 MG-UNIT 1 tablet Orally Once a da y for 30 days Active Plavix 75 MG 1 tablet Orally Once a day for 30 day(s) Active Fwacnen-Hhjcvdqs-Abtnvybezvr 200-200-20 MG/5ML 30 ml a s needed Orally Four times a day Active Carboxymethylcellulose Sodium 0.25 % 2 drops each eye QID as needed for dry eyes Dec, Active Calcitriol 0.25 MCG 1 capsule Orally Once a day for 30 Days Active PROCEDURES No Information RESULTS No Results REASON FOR VISIT prolia MEDICAL (GENERAL) HISTORY Type Description Date Medical History Hypertension Medical History Restless leg syndrome Medical History Vitamin D deficiency Medical History Hypercholesterolemia Medical History Hypothyroidism Medical History Peoples's esophagus Medical History Osteoporosis Medical History Degenerative disc disease, lumbar Medical History Migraine Medical History Sick sinus syndrome Medical History Chronic pruritus Medical History Hypothyroidism, unspecified type Medical History Coronary artery disease invo lving [place] coronary artery of [place] heart without angina pectoris Medical History Ankle edema Surgical History Appendectomy 1951 Surgical History Hysterectomy 1963 Surgical History Lumbar Laminectomy 2000 Surgical History Lumbar Disc Herniation 2000 Surgical History L3 & L4 Herniation X 2 2002 Surgical History colonoscopy 04/2010 Surgical History Pacemaker Insertion 2010 Surgical History Lithotripsy 2011 Surgical History Bilateral ptosis surgery 02/2016 Surgical History OS cataract surgery 03/2017 Surgical History OD cataract surgey 04/15/2017 Surgical History 2 drug-eluting stents placed in the LAD 09/13/2017 Surgical History ORIF Right hip fracture-Dr. Joce Truong 0 09/14/2018 Hospitalization History SURGERY RELATED Hospitalization History [facility]-Right hip fracture, then discharged to [facility] acute rehab 09/11-09/17/2018 Hospitalization History [facility]-L[facility] Cellulitis 12/16-12/19/2019 Goals Section No Information Health Concerns No Information MEDICAL EQUIPMENT No Information MENTAL STATUS No Information FUNCTIONAL STATUS No Information ASSESSMENTS No Information PLAN OF TREATMENT Medication Medication Name Sig Start Date Stop Date Synthroid 50 MCG 1 tab(s) Orally daily for 30 Days Calcium 600 + Minerals 600-200 MG-UNIT 1 tablet Orally Once a da y for 30 days Plavix 75 MG 1 tablet Orally Once a day for 30 day(s) Lipitor 10 MG 1 tablet Orally Daily for 30 Days Metoprolol Tartrate 50 MG 1 tablet with food Orally Twice a day for 30 Days Spironolactone 25 mg 1 tablet Orally Once a day for 30 Days 14 2019 Calcitriol 0.25 MCG 1 capsule Orally Once a day for 30 Days Torsemide 10 MG 1 tablet Orally Every other day for 30 days 14 J 2019 Doxepin HCl 10 MG 1 capsule at bedtime Orally Once a day f or 30 day(s) Jan, amLODIPine Besylate 5 MG 1 tablet Orally Once a day for 30 Days Next Appt Details Provider Name:Mono Sahni, 2021-07-24 09 :30:00 AM, [address] [facility], , [place], [address], Insurance Providers Payer Name Payer Address Payer Phone Insured Name Patient Relati onship to Insured Coverage Start Date Coverage End Date MEDICAID [employer] [address] [facility] [id number] ZUNILDA KINGSLEY [facility] [address] [facility] [id number] ZUNILDA KINGSLEY
--- OUTSIDE RECORDS SUMMARY | 2021-05-15 10:54 | CCD ---
Author Author [facility] Organization [facility] Address Unknown Phone Unavailable Care Team Providers Care Pals Specialist Name Role Phone Mono Sahni Unavailable PROBLEMS Type Condition ICD9-CM Code EAN27-SI Code Onset Dates Condition S tatus W/U Status Risk SNOMED Code Notes Problem Degenerative disc disease, lumbar M51.36 Active confirmed [id number] She has had 4 prior laminectomies. She has chronic back pain which had not been well palliated with her Vicodin. I tried scheduled tramadol, 3 times a day, as of August 2015 but was ineffective. She apparently had a back support via an clinical data analyst. She received Percocet during her hip fracture recovery and she was taking hydrocodone very rarely but she has been off that for quite some time. She is no longer on gabapentin. He had a vertebral compression fracture in late 2019. 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 Problem Migraine G43.909 Active confirmed 21258517 S he had been on Topamax with definite benefit. Dose increased to 50 mg twice daily in February of her neuropathic symptoms of her feet and back pain. She is off that now since her rehabilitation stay. Problem Restless leg syndrome G25.81 Active confirmed 18887536 She was on Sinemet and Neurontin in [...] January 2021. Problem Hypothyroidism E03.9 Active confirmed 34956 008 Her last TSH in December 2020 was 2.36 on levothyroxine replacement therapy at 50 mcg p.o. daily. Problem Osteoporosis M81.0 Active confirmed 3870533 6 She is intolerant of bisphosphonate therapy [...] Problem Sick sinus syndrome I49.5 Active confirmed 62537278 A pacemaker was placed in 2010 and she is regularly followed by the cone runner. Problem Vitamin D deficiency E55.9 Active confirmed 64460242 She was on replacement therapy her last vitamin D level in July 2012 was 109 and apparently this therapy was discontinued. She ws started on 4000 units daily when her level was 27 on a lower dose, 07/2013; most recent vitamin D level was 52 in July 2019. 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 Problem Ankle edema M25.473 Active confirmed 4535061 0 Her ankle edema has become better [...] elevated creatinine. Problem Hypercholesterolemia E78.00 Active confirmed 25291804 On Lipitor, and had her dose increased in September 2017 to 10 mg daily after her stent placements. She may need a higher dose statin regardless of her lipid levels. Lipids were optimal as of January 2021 Problem Chronic kidney disease, stage 3b N18.32 Active confirmed 181124946 Her baseline GFR is usually in the [...] 2020. Problem Hot flashes R23.2 Active confirmed 03221336 7 She has a history of hot flashes. She apparently used to be on estrogen replacement therapy but is no longer on that. It does not seem to be as much of an issue apparently. Problem Insomnia, unspecified G47.00 Active confirmed 439013078 She was placed on doxepin as of January 2021. Problem Ureteral stone N20.1 Active confirmed 02343 009 She has a history of kidney stones in the past. She had a stent placed in about 2012 which has been removed. She now has recurrent stones. Stone analysis would be indicated. As far as I can tell, she is not on any prophylactic medication for kidney stones. Details are unclear. Problem Coronary artery disease invo lving [place] coronary artery of [place] heart without angina pectoris I25.10 Active confirmed 907654 0294706 She had an elevated troponin when she [...] with renal disease I12.9 Active confi rmed [id number] She is currently on spironolactone, metoprolol (higher [...] Problem Balance disorder R26.89 Active confirmed 387 675323 We added supplemental Vitamin B12, as of 07/2018. I am not sure she takes that. 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 Active confirmed 611283 06 She had finger pain which she [...] Reaction Allergy Type Onset Date Status aspirin Aspirin([facility] Code:[address]-99) SWELLING Drug Allergy Active ENCOUNTERS from 1932 to 2021-03-01 Encounter Location Date Provider Diagnosis [place] [id number] [facility] [phone] [place] [address] Feb, Mono Kaitlyn Osteoporosis M81.0 IMMUNIZATIONS Vaccine Route Administration Date Status COVID-19 dose #2 given elsewhere Unspecified Unknown Aug 22, 2020 Administered Influenza 18 yrs & older Flublok IM Intramuscular Aug 04, 2019 Administered Influenza 18 yrs & older Flublok IM Intramuscular Jul 22, 2018 Administered Influenza Pharmacy Given Unknown Mar 24, 2020 Adminis tered COVID-19 dose #1 given elsewhere Unspecified Unknown Aug 01, 2020 Administered Influenza 6mo & up Fluzone Unknown May 18, 2014 Admin istered Prolia 60mg/1mL Denosumab SC Subcutaneous Aug 21, 2020 Admini stered Prolia 60mg/1mL Denosumab SC Subcutaneous Aug 31, 2019 Admini stered Prolia 60mg/1mL Denosumab SC Subcutaneous February 02, 2019 Admini stered Influenza (High Dose 65 & up) Unknown [...] Notes Total Score: 0 Interpretation: Alcohol Education Adventist: Question Answer Notes Adventist 06 Christianity Sexual Hx: Question Answer Notes Had sex [...] Once a day for 30 day(s) Active Lafpgfv-Ttsfjvhw-Lczcboywuyt 200-200-20 MG/5ML 30 ml a s needed Orally Four times a day Active Carboxymethylcellulose Sodium 0.25 % 2 drops each eye QID as needed for dry eyes Dec, Active Calcitriol 0.25 MCG 1 capsule Orally Once a day for 30 Days Active PROCEDURES from 1932 to 2021-03-01 Procedure Date Ordered Result Body Site Medication: Prolia 60mg/1mL SC (Denosumab) 2021-03-01 Augus t 2020 RESULTS No Results REASON FOR VISIT Prolia MEDICAL (GENERAL) HISTORY Type Description Date Medical History Hypertension Medical History Restless leg syndrome Medical History Vitamin D deficiency Medical History Hypercholesterolemia Medical History Hypothyroidism Medical History Peoples's esophagus Medical History Osteoporosis Medical History Degenerative disc disease, lumbar Medical History Migraine Medical History Sick sinus syndrome Medical History Chronic pruritus Medical History Hypothyroidism, unspecified type Medical History Coronary artery disease invo lving [place] coronary artery of [place] heart without angina pectoris Medical History Ankle edema Surgical History Appendectomy 1951 Surgical History Hysterectomy 1964 Surgical History Lumbar Laminectomy 2000 Surgical History [...] 09/14/2018 Hospitalization History SURGERY RELATED Hospitalization History [facility]-Right hip fracture, then discharged to [facility] acute rehab 09/11-09/17/2018 Hospitalization History [facility]-LLE Cellulitis 12/16-12/19/2019 Goals Section No Information Health Concerns No Information MEDICAL EQUIPMENT No Information MENTAL STATUS No Information FUNCTIONAL STATUS No Information ASSESSMENTS Encounter Date Diagnosis Assessment Notes Treatment Notes Treatm ent Clinical Notes Feb, Osteoporosis (ICD-10 - M81.0) She is int olerant of bisphosphonate therapy because of her Peoples's esophagus. Last DEXA was in 10/2016 and her t- scores were approximately stable; hips only. Continue vitamin [...] visit. We will try to arrange it. PLAN OF TREATMENT Medication Medication Name Sig [...] Orally Once a day for 30 Days J 2019 Calcitriol 0.25 MCG 1 capsule Orally [...] Name:Mono Sahni, 2021-07-24 09 :30:00 AM, [address] [facility], , [place], [address], Insurance Providers Payer Name Payer Address Payer Phone Insured Name Patient Relati onship to Insured Coverage Start Date Coverage End Date [facility] [id number] [facility] [id number] ZUNILDA KINGSLEY MEDICAID [employer] [address] [facility] [id number] ZUNILDA KINGSLEY
--- OUTSIDE RECORDS SUMMARY | 2021-05-15 10:54 | CCD ---
Author Author [facility] Organization [facility] Address Unknown Phone Unavailable Care Team Providers Care Environmental Air Specialist Name Role Phone Leo, L Jessy PA Unavailable Unavailable Leo, L Jessy PA Unavailable Unavailable Leo, L Jessy PA Unavailable Unavailable Leo, L Jessy PA Unavailable Unavailable Leo, L Jessy PA Unavailable Unavailable Leo, L Jessy PA Unavailable Unavailable Leo, L Jessy PA Unavailable Unavailable Leo, L Jessy PA Unavailable Unavailable Leo, L Jessy PA Unavailable Unavailable Leo, L Jessy PA Unavailable Unavailable Leo, L Jessy PA Unavailable Unavailable Leo, L Jessy PA Unavailable Unavailable Leo, L Jessy PA Unavailable Unavailable Leo, L Jessy PA Unavailable Unavailable Leo, L Jessy PA Unavailable Unavailable Leo, L Jessy PA Unavailable Unavailable Leo, L Jessy PA Unavailable Unavailable Leo, L Jessy PA Unavailable Unavailable Leo, L Jessy PA Unavailable Unavailable Leo, L Jessy PA Unavailable Unavailable Leo, L Jessy PA Unavailable Unavailable Leo, L Jessy PA Unavailable Unavailable Leo, L Jessy PA Unavailable Unavailable Damien Walker MD Unavailable Unavailable Damien Walker MD Unavailable Unavailable Damien Walker MD Unavailable Unavailable Damien Walker MD Unavailable Unavailable Damien Walker MD Unavailable Unavailable Damien Walker MD Unavailable Unavailable Damien Walker MD Unavailable Unavailable Damien Walker MD Unavailable Unavailable Damien Walker MD Unavailable Unavailable Denise, Noaman MD Unavailable Unavailable Denise, Noaman MD Unavailable Unavailable Denise, Noaman MD Unavailable Unavailable Denise, Noaman MD Unavailable Unavailable Denise, Noaman MD Unavailable Unavailable Denise, Noaman MD Unavailable Unavailable Denise, Noaman MD Unavailable Unavailable Denise, Noaman MD Unavailable Unavailable Denise, Noaman MD Unavailable Unavailable Denise, Noaman MD Unavailable Unavailable Denise, Noaman MD Unavailable Unavailable Denise, Noaman MD Unavailable Unavailable Denise, Noaman MD Unavailable Unavailable Denise, Noaman MD Unavailable Unavailable Denise, Noaman MD Unavailable Unavailable Denise, Noaman MD Unavailable Unavailable Denise, Noaman MD Unavailable Unavailable Denise, Noaman MD Unavailable Unavailable Denise, Noaman MD Unavailable Unavailable Denise, Noaman MD Unavailable Unavailable Denise, Noaman MD Unavailable Unavailable Denise, Noaman MD Unavailable Unavailable Denise, Noaman MD Unavailable Unavailable Denise, Noaman MD Unavailable Unavailable Denise, Noaman MD Unavailable Unavailable Denise, Noaman MD Unavailable Unavailable JAYME, L MIRNA PA Unavailable Unavailable JAYME, L MIRNA PA Unavailable Unavailable JAYME, L MIRNA PA Unavailable Unavailable JAYME, L MIRNA PA Unavailable Unavailable JAYME, L MIRNA PA Unavailable Unavailable JAYME, L MIRNA PA Unavailable Unavailable JAYME, L MIRNA PA Unavailable Unavailable JAYME, L MIRNA PA Unavailable Unavailable JAYME, L MIRNA PA Unavailable Unavailable JAYME, L MIRNA PA Unavailable Unavailable JAYME, L MIRNA PA Unavailable Unavailable JAYME, L MIRNA PA Unavailable Unavailable JAYME, L MIRNA PA Unavailable Unavailable JAYME, L MIRNA PA Unavailable Unavailable JAYME, L MIRNA PA Unavailable Unavailable JAYME, L MIRNA PA Unavailable Unavailable NON, PHYSICIAN STAFF Unavailable Unavailable Re-disclosure Warning The records that you are about to access may contain information from federally-assisted alcohol or drug abuse programs. If such information is present, then the following federally mandated warning applies: This information has been disclosed to you from records protected by federal confidentiality rules (42 CFR part 2). The federal rules prohibit you from making any further disclosure of this information unless further disclosure is expressly permitted by the written consent of the person to whom it pertains or as otherwise permitted by 42 CFR part 2. A general authorization for the release of medical or other information is NOT sufficient for this purpose. The Federal rules restrict any use of the information to criminally investigate or prosecute any alcohol or drug abuse patient.The records that you are about to access may contain highly sensitive health information, the redisclosure of which is protected by Article 27-F of the [facility] Public Health law. If you continue you may have access to information: Regarding HIV / AIDS; Provided by facilities licensed or operated by the [facility] Office of Mental Health; or Provided by the [facility] Office for People With Developmental Disabilities. If such information is present, then the following [facility] mandated warning applies: This information has been disclosed to you from confidential records which are protected by state law. State law prohibits you from making any further disclosure of this information without the specific written consent of the person to whom it pertains, or as otherwise permitted by law. Any unauthorized further disclosure in violation of state law may result in a fine or snf sentence or both. A general authorization for the release of medical or other information is NOT sufficient authorization for further disc losure. Family History Family Member Name Family Member Gender Family Member Status Date o f Status Description Data Source(s) Unknown Unknown Problem MEDENT ([facility]) Unknown Unknown Problem [facility] ([facility]) Unknown Male Problem MEDENT ([facility] ) Unknown Male Problem MEDENT ([facility] ) Unknown Male Problem MEDENT ([facility] ) Encounters Encounter Providers Location Date Indications Data Source(s ) Unknown [address] [facility] [address] 03/02/2021 12:00:00 AM EDT eCW1 ([facility]) Outpatient [address] [facility] [address] 03/01/2021 12:00:00 AM EDT eCW1 ([facility]) Unknown [address] [facility] [place] [address] 01/31/2021 12:00:00 AM EDT eCW1 ([facility]) Office Visit, Est Pt., Level 4 PC [address] [place] [address] 01/22/2021 12:00:00 AM EDT eCW1 ([facility]) Unknown [address] [facility], [facility] [address] 01/22/2021 12:00:00 AM EDT eCW1 ([facility]) Outpatient Attender: MIRNA OWENS Main Office 11/01/2020 1 0:15:00 AM EDT MEDENT ([facility]) [place] [address] [facility] [address] 09/04/2020 12:00:00 AM EST eCW1 ([facility]) [place] [address] [facility] [address] 09/04/2020 12:00:00 AM EST eCW1 ([facility]) Outpatient [address] [facility] [place] [address] 08/21/2020 12:00:00 AM EST eCW1 ([facility]) [place] [address] [facility] [address] 08/14/2020 12:00:00 AM EST eCW1 ([facility]) [place] [address] [facility] [address] 08/14/2020 12:00:00 AM EST eCW1 ([facility]) [place] [address] [facility] [address] 08/11/2020 12:00:00 AM EST eCW1 ([facility]) Outpatient Attender: MIRNA OWENS Main Office 08/01/2020 0 1:30:00 PM EST MEDENT ([facility]) [place] [address] [facility] [address] 06/12/2020 12:00:00 AM EST eCW1 ([facility]) Outpatient Attender: Jessy OWENS Main Office 04/13/2020 11:15:0 0 AM EDT MEDENT ([facility]) Outpatient Attender: Damien Walker MDConsultant: STAFF NON 01/19/2020 12:15:00 PM EDT - 01/19/2020 03:18:00 PM EDT [facility] Patient discharged. Immunizations Vaccine Date Status Description Data Source(s) COVID-19 dose #2 given elsewhere Unspecified 08/22/2020 03:1 4:00 PM EST completed eCW1 ([facility]) COVID-19 dose #2 given elsewhere Unspecified 08/22/2020 03:1 4:00 PM EST completed eCW1 ([facility]) COVID-19 dose #2 given elsewhere Unspecified 08/22/2020 03:1 4:00 PM EST completed eCW1 ([facility]) COVID-19 dose #2 given elsewhere Unspecified 08/22/2020 03:1 4:00 PM EST completed eCW1 ([facility]) COVID-19 dose #2 given elsewhere Unspecified 08/22/2020 03:1 4:00 PM EST completed eCW1 ([facility]) COVID-19 dose #2 given elsewhere Unspecified 08/22/2020 03:1 4:00 PM EST completed eCW1 ([facility]) COVID-19 dose #2 given elsewhere Unspecified 08/22/2020 03:1 4:00 PM EST completed eCW1 ([facility]) COVID-19 dose #2 given elsewhere Unspecified 08/22/2020 03:1 4:00 PM EST completed eCW1 ([facility]) COVID-19 VACCINE Pfizer 08/22/2020 12:00:00 AM EST completed [facility] Vaccine Series Complete: YESThis Data wa s Submitted to [facility] Via [facility]. 08/21/2020 10:27:00 AM EST completed e CW1 ([facility]) 08/21/2020 10:27:00 AM EST completed e CW1 ([facility]) 08/21/2020 10:27:00 AM EST completed e CW1 ([facility]) 08/21/2020 10:27:00 AM EST completed e CW1 ([facility]) 08/21/2020 10:27:00 AM EST completed e CW1 ([facility]) 08/21/2020 10:27:00 AM EST completed e CW1 ([facility]) 08/21/2020 10:27:00 AM EST completed e CW1 ([facility]) 08/21/2020 10:27:00 AM EST completed e CW1 ([facility]) COVID-19 dose #1 given elsewhere Unspecified 08/01/2020 03:1 3:00 PM EST completed eCW1 ([facility]) COVID-19 dose #1 given elsewhere Unspecified 08/01/2020 03:1 3:00 PM EST completed eCW1 ([facility]) COVID-19 dose #1 given elsewhere Unspecified 08/01/2020 03:1 3:00 PM EST completed eCW1 ([facility]) COVID-19 dose #1 given elsewhere Unspecified 08/01/2020 03:1 3:00 PM EST completed eCW1 ([facility]) COVID-19 dose #1 given elsewhere Unspecified 08/01/2020 03:1 3:00 PM EST completed eCW1 ([facility]) COVID-19 dose #1 given elsewhere Unspecified 08/01/2020 03:1 3:00 PM EST completed eCW1 ([facility]) COVID-19 dose #1 given elsewhere Unspecified 08/01/2020 03:1 3:00 PM EST completed eCW1 ([facility]) COVID-19 dose #1 given elsewhere Unspecified 08/01/2020 03:1 3:00 PM EST completed eCW1 ([facility]) COVID-19 VACCINE Pfizer 08/01/2020 12:00:00 AM EST completed [facility] Vaccine Series Complete: NOThis Data was Submitted to [facility] Via [facility]. IIV3. This is one of two codes replacing CVX 15, which is being retired. 03/24/2020 11:48:00 AM EDT completed eCW1 ([facility]) IIV3. This is one of two codes replacing CVX 15, which is being retired. 03/24/2020 11:48:00 AM EDT completed eCW1 ([facility]) IIV3. This is one of two codes replacing CVX 15, which is being retired. 03/24/2020 11:48:00 AM EDT completed eCW1 ([facility]) IIV3. This is one of two codes replacing CVX 15, which is being retired. 03/24/2020 11:48:00 AM EDT completed eCW1 ([facility]) IIV3. This is one of two codes replacing CVX 15, which is being retired. 03/24/2020 11:48:00 AM EDT completed eCW1 ([facility]) INFLUENZA VIRUS VACCINE QUADRIVALENT 2019- (6 MOS AN D UP) 03/24/2020 12:00:00 AM EDT completed [facility] Medications Medication Brand Name Start Date Product Form Dose Route Admi nistrative Instructions Pharmacy Instructions Status Indications Reaction Description Data Source(s) Doxepin Hydrochloride 10 MG Oral Capsule Doxepin HCl 10 MG D oxepin HCl 10 MG 01/22/2021 12:00:00 AM EDT 1.0 {capsule_at_bedtime} active Doxepin HCl 10 MG eCW1 ([facility]) Doxepin Hydrochloride 10 MG Oral Capsule Doxepin HCl 10 MG D oxepin HCl 10 MG 01/22/2021 12:00:00 AM EDT 1.0 {capsule_at_bedtime} active Doxepin HCl 10 MG eCW1 ([facility]) Doxepin Hydrochloride 10 MG Oral Capsule Doxepin HCl 10 MG D oxepin HCl 10 MG 01/22/2021 12:00:00 AM EDT 1.0 {capsule_at_bedtime} active Doxepin HCl 10 MG eCW1 ([facility]) Doxepin Hydrochloride 10 MG Oral Capsule Doxepin HCl 10 MG D oxepin HCl 10 MG 01/22/2021 12:00:00 AM EDT 1.0 {capsule_at_bedtime} active Doxepin HCl 10 MG eCW1 ([facility]) Doxepin Hydrochloride 10 MG Oral Capsule Doxepin HCl 10 MG D oxepin HCl 10 MG 01/22/2021 12:00:00 AM EDT 1.0 {capsule_at_bedtime} active Doxepin HCl 10 MG eCW1 ([facility]) Calcitriol 0.68092 MG Oral Capsule Calcitriol 10/31/2020 12:00:00 AM EDT ORAL active [facility] ([facility] Amlodipine 5 MG Oral Tablet Amlodipine Besylate 10/31/2020 12:00:00 A M EDT ORAL active MEDENT ([facility] Calcium 600 + Minerals 10/31/2020 12:00:00 AM EDT ORAL active MEDENT ([facility]) Magnesium Hydroxide 80 MG/ML Oral Suspension Milk Of Magnesi a 10/31/2020 12:00:00 AM EDT ORAL active M EDENT ([facility]) Acetaminophen 325 MG Oral Tablet Acetaminophen 10/31/2020 12:00:00 AM EDT active [facility] ([facility]) clopidogrel 75 MG Oral Tablet [Plavix] Plavix 10/31/2020 12:00:00 AM EDT ORAL active [facility] ([facility] Nitroglycerin 0.4 MG Sublingual Tablet [Nitrostat] Nitrostat 10/31/2020 12:00:00 AM EDT active MEDENT ([facility] Carboxymethylcellulose Sodium 2.5 MG/ML Ophthalmic Solution Theratears 10/31/2020 12:00:00 AM EDT active MEDENT ([facility]) Aluminum Hydroxide 40 MG/ML / Magnesium Hydroxide 40 MG/ML / Simethicone 4 MG/ML Oral Suspension Birkras-Sueppxik-Yeyfohypent 10/31/2020 12:00:00 AM EDT ORAL active [facility] ([facility] Metoprolol Tartrate 50 MG Oral Tablet Metoprolol Tartrate 12:00:00 AM EDT ORAL active [facility] ([facility] Diphenhydramine Hydrochloride 25 MG Oral Tablet [Benadryl] B enadryl Allergy 10/31/2020 12:00:00 AM EDT ORAL active MEDENT ([facility]) torsemide 10 MG Oral Tablet Torsemide 10/31/2020 12:00:00 AM EDT ORAL active [facility]ENT ([facility]) Spironolactone 25 MG Oral Tablet Spironolactone 10/31/2020 12:00:00 A M EDT ORAL active MEDENT ([facility] Hydrogen Peroxide 30 MG/ML Topical Solution Hydrogen P eroxide 3 % Hydrogen Peroxide 3 % 08/21/2020 12:00:00 AM EST suspe nded Hydrogen Peroxide 3 % eCW1 ([facility]) Hydrogen Peroxide 30 MG/ML Topical Solution Hydrogen P eroxide 3 % Hydrogen Peroxide 3 % 08/21/2020 12:00:00 AM EST suspe nded Hydrogen Peroxide 3 % eCW1 ([facility]) Hydrogen Peroxide 30 MG/ML Topical Solution Hydrogen P eroxide 3 % Hydrogen Peroxide 3 % 08/21/2020 12:00:00 AM EST suspe nded Hydrogen Peroxide 3 % eCW1 ([facility]) Hydrogen Peroxide 30 MG/ML Topical Solution Hydrogen P eroxide 3 % Hydrogen Peroxide 3 % 08/21/2020 12:00:00 AM EST activ e Hydrogen Peroxide 3 % eCW1 ([facility]) Hydrogen Peroxide 30 MG/ML Topical Solution Hydrogen P eroxide 3 % Hydrogen Peroxide 3 % 08/21/2020 12:00:00 AM EST suspe nded Hydrogen Peroxide 3 % eCW1 ([facility]) Hydrogen Peroxide 30 MG/ML Topical Solution Hydrogen P eroxide 3 % Hydrogen Peroxide 3 % 08/21/2020 12:00:00 AM EST activ e Hydrogen Peroxide 3 % eCW1 ([facility]) Hydrogen Peroxide 30 MG/ML Topical Solution Hydrogen P eroxide 3 % Hydrogen Peroxide 3 % 08/21/2020 12:00:00 AM EST activ e Hydrogen Peroxide 3 % eCW1 ([facility]) Hydrogen Peroxide 30 MG/ML Topical Solution Hydrogen P eroxide 3 % Hydrogen Peroxide 3 % 08/21/2020 12:00:00 AM EST suspe nded Hydrogen Peroxide 3 % eCW1 ([facility]) Diphenhydramine Hydrochloride 25 MG Oral Capsule Diphe nhydrAMINE HCl 25 MG DiphenhydrAMINE HCl 25 MG 08/14/2020 12:00:00 AM EST 1.0 {capsule_at_bedtime_as_needed} active D iphenhydrAMINE HCl 25 MG eCW1 ([facility]) Diphenhydramine Hydrochloride 25 MG Oral Capsule diphe nhydrAMINE HCl 25 MG diphenhydrAMINE HCl 25 MG 08/14/2020 12:00:00 AM EST 1.0 {capsule_at_bedtime_as_needed} active d iphenhydrAMINE HCl 25 MG eCW1 ([facility]) Diphenhydramine Hydrochloride 25 MG Oral Capsule diphe nhydrAMINE HCl 25 MG diphenhydrAMINE HCl 25 MG 08/14/2020 12:00:00 AM EST 1.0 {capsule_at_bedtime_as_needed} active d iphenhydrAMINE HCl 25 MG eCW1 ([facility]) Diphenhydramine Hydrochloride 25 MG Oral Capsule diphe nhydrAMINE HCl 25 MG diphenhydrAMINE HCl 25 MG 08/14/2020 12:00:00 AM EST 1.0 {capsule_at_bedtime_as_needed} active d iphenhydrAMINE HCl 25 MG eCW1 ([facility]) Diphenhydramine Hydrochloride 25 MG Oral Capsule Diphe nhydrAMINE HCl 25 MG DiphenhydrAMINE HCl 25 MG 08/14/2020 12:00:00 AM EST 1.0 {capsule_at_bedtime_as_needed} active D iphenhydrAMINE HCl 25 MG eCW1 ([facility]) Diphenhydramine Hydrochloride 25 MG Oral Capsule Diphe nhydrAMINE HCl 25 MG DiphenhydrAMINE HCl 25 MG 08/14/2020 12:00:00 AM EST 1.0 {capsule_at_bedtime_as_needed} active D iphenhydrAMINE HCl 25 MG eCW1 ([facility]) Carboxymethylcellulose Sodium 2.5 MG/ML Ophthalmic Solution [Thera Tears] Theratears 0.25 % Theratears 0.25 % 08/14/2020 12:00:00 AM EST active Theratears 0.25 % eCW1 ([facility]) Diphenhydramine Hydrochloride 25 MG Oral Capsule diphe nhydrAMINE HCl 25 MG diphenhydrAMINE HCl 25 MG 08/14/2020 12:00:00 AM EST 1.0 {capsule_at_bedtime_as_needed} active d iphenhydrAMINE HCl 25 MG eCW1 ([facility]) Carboxymethylcellulose Sodium 2.5 MG/ML Ophthalmic Solution [Thera Tears] Theratears 0.25 % Theratears 0.25 % 08/14/2020 12:00:00 AM EST active Theratears 0.25 % eCW1 ([facility]) Diphenhydramine Hydrochloride 25 MG Oral Capsule Diphe nhydrAMINE HCl 25 MG DiphenhydrAMINE HCl 25 MG 08/14/2020 12:00:00 AM EST 1.0 {capsule_at_bedtime_as_needed} active D iphenhydrAMINE HCl 25 MG eCW1 ([facility]) Carboxymethylcellulose Sodium 2.5 MG/ML Ophthalmic Solution [Thera Tears] Theratears 0.25 % Theratears 0.25 % 08/14/2020 12:00:00 AM EST active Theratears 0.25 % eCW1 ([facility]) Diphenhydramine Hydrochloride 25 MG Oral Capsule Diphe nhydrAMINE HCl 25 MG DiphenhydrAMINE HCl 25 MG 08/14/2020 12:00:00 AM EST 1.0 {capsule_at_bedtime_as_needed} active D iphenhydrAMINE HCl 25 MG eCW1 ([facility]) Diphenhydramine Hydrochloride 25 MG Oral Capsule Diphe nhydrAMINE HCl 25 MG DiphenhydrAMINE HCl 25 MG 08/14/2020 12:00:00 AM EST 1.0 {capsule_at_bedtime_as_needed} active D iphenhydrAMINE HCl 25 MG eCW1 ([facility]) Diphenhydramine Hydrochloride 25 MG Oral Capsule diphe nhydrAMINE HCl 25 MG diphenhydrAMINE HCl 25 MG 08/14/2020 12:00:00 AM EST 1.0 {capsule_at_bedtime_as_needed} active d iphenhydrAMINE HCl 25 MG eCW1 ([facility]) Insurance Providers Payer name Policy type / Coverage type Policy ID Covered libertarian ID Covered libertarian's relationship to chandler Policy Chandler Plan Information MEDICARE COMPLETE [id number] [place] Med[place]ap Part B [id number] Self [id number] [place] Med[place]ap Part B [id number] Self [id number] [place] Med[place]ap [place] B [id number] Self Medicare [place] Med[place]ap Part B [id number] Self [id number] Medicare [place] Med[place]ap Part B [id number] Self [id number] [employer] Medigap Part B [id number] Self [id number] [employer] Medigap Part B [id number] Self [id number] Well[employer] Medigap Part B [id number] Self Wellcare Medigap Part B [id number] Self [id number] [employer] Medigap Part B [id number] 16461.0 Self [id number] [facility] gamigo [id number] Self [facility] gamigo [id number] Self [id number] MEDICARE COMPLETE [id number] SP [id number] Medicare Advantage Medigap Part B [id number] Self [id number] Medicare Advantage Medigap Part B [id number] Self [id number] [employer] Medigap Part B [id number] Self [id number] [employer] [facility] [id number] Self [id number] Today's Options Ppo Commercial [id number] Self [id number] Today's Options Ppo Commercial [id number] Self [id number] Today's Options Ppo Commercial [id number] Self [id number] Today's Options Ppo Commercial [id number] Self [id number] Today's Options Ppo Commercial [id number] Self [id number] Today's Options Ppo Commercial [id number] Self [id number] Today's Options Ppo Commercial [id number] Self [id number] Today's Options Ppo Commercial [id number] Self [id number] Today's Options Ppo Commercial [id number] Self Today's Options Ppo Commercial [id number] [id number] [id number] Self [id number] Today's Options Ppo Commercial [id number] [id number] Self [id number] Medicaid [place] Medigap Part B [id number] Self [id number] [facility] ([facility]) Medigap Part B [id number] Self [id number] [facility] Commercial [id number] Self [id number] Medicaid [facility] [id number] Self [facility] Commercial [id number] Self [id number] MEDICARE COMPLETE [id number] SP [id number] MEDICARE COMPLETE [id number] SP [id number] MEDICARE COMPLETE [id number] SP [id number] [employer] [id number] SP [id number] [facility] Medicare Dual Complet Commercial [id number] Self [id number] MEDICAID [id number] [id number] Dual Complete Commercial [id number] Self [id number] [facility] [id number] SP [id number] [facility]-Medicaid [id number] ANS-Medicare Part B [id number] ANSI-Medicare Part B [id number] ANS-Medicaid [id number] ANSI-Medicaid [id number] [facility] [id number] ANSI-Medicare Part B [id number] ANSI-Medicare Part B [id number] ANSI-Medicaid [id number] ANSI-Medicaid [id number] ANSI-Medicaid [id number] ANSI-Medicare Part B [id number] ANSI-Medicare Part B [id number] ANSI-Medicaid [id number] ANSI-Medicaid [id number] ANSI-Medicare Part B [id number] ANSI-Medicare Part B [id number] ANSI-Medicaid [id number] ANSI-Medicare Part B [id number] ANSI-Medicaid [id number] ANSI-Medicaid [id number] ANSI-Medicare Part B [id number] ANSI-Medicare Part B [id number] ANSI-Medicaid [id number] ANSI-Medicare Part B [id number] ANSI-Medicare Part B [id number] ANSI-Medicare Part B [id number] ANSI-Medicaid [id number] Medicaid [place] Medigap Part B [id number] 2.0.1.691801.3.227.99.8646 .3165.0 Self [id number] Today's Options Medicare Commercial [id number] 2.0.1.395104.3.227.99.8646.3165.0 Self [id number] Today's Options PFFS Commercial [id number] 2.0.1. 409886.3.227.99.572.86275.0 Self [id number] T O-[facility]say Unrelated Medigap Part B [id number] 2.0.1.751069.3.227.99.572.66619.0 Self 1 [id number] Univ Amer-Lindsay Unrel Medigap Part B [id number] 2.0.1.816700.3.227.99.572.98252.0 Self B [id number] Medicaid Medigap Part B [id number] 2.0.1.993275.3.227.99.572.2374 8.0 Self [id number] Today's Options Ppo Commercial [id number] 2.0.1.783107.3.2 27.99.572.04410.0 Self [id number] [facility] Dual Cov Plan Commercial [id number] 2.0.1.383314.3.227.99.572.44145.0 Self [id number] ANSI-Medicare Part B [id number] ANSI-Medicare Part B [id number] ANSI-Medicaid [id number] TODAYS OPTIONS [id number] SP [id number] [facility] [id number] ANSI-Medicare Part B [id number] ANSI-Medicare Part B [id number] ANSI-Medicaid [id number] ANSI-Medicare Part B [id number] ANSI-Medicaid [id number] ANSI-Medicare Part B [id number] Today's Options PF Commercial [id number] 2.16.840.1. 399082.3.227.99.572.05846.0 Self [id number] T [facility] Unrelated Medigap Part B [id number] 2.16.840.1.401911.3.227.99.572.11987.0 Self 1 [id number] Univ [employer]rel Medigap Part B [id number] 2.16.840.1.746471.3.227.99.572.74662.0 Self B [id number] Medicaid Medigap Part B [id number] 2.16.0.1.641781.3.227.99.572.2374 8.0 Self [id number] [facility] Commercial [id number] 2.0.1.282127.3.227.99.572.89594.0 Self [id number] MEDICARE [id number] A MEDICARE COMPLETE [id number] 94 [id number] ANSI-Medicare Part B [id number] ANSI-Medicare Part B [id number] ANSI-Medicaid [id number] Today's Options PFFS Commercial [id number] 2.0.1. 822472.3.227.99.572.82483.0 Self [id number] T [employer] Unrelated Medigap Part B [id number] 2.160.1.457667.3.227.99.572.78801.0 Self 1 [id number] Univ Amer-[employer] Unrel Medigap Part B [id number] 2.160.1.252654.3.227.99.572.81941.0 Self B [id number] Medicaid Medigap Part B [id number] 2.16840.1.978622.3.227.99.572.2374 8.0 Self [id number] Today's Options PFFS Commercial [id number] 2.16840.1. 224199.3.227.99.572.34033.0 Self [id number] T [employer] Unrelated Medigap Part B [id number] 2.16840.1.723927.3.227.99.572.55785.0 Self 1 [id number] [facility] Amer-Lindsay Unrel Medigap Part B [id number] 2.0.1.341930.3.227.99.572.62370.0 Self B [id number] Medicaid Medigap Part B [id number] 2.0.1.981915.3.227.99.572.2374 8.0 Self [id number] Today's Options PFFS Commercial [id number] 2.0.1. 473236.3.227.99.572.13312.0 Self [id number] T [employer] Unrelated Medigap Part B [id number] 2.840.1.503109.3.227.99.572.16257.0 Self 1 [id number] [facility] Amer-Lindsay Unrel Medigap Part B [id number] 2.0.1.933044.3.227.99.572.70540.0 Self B [id number] Medicaid Medigap Part B [id number] 2.16840.1.989897.3.227.99.572.2374 8.0 Self [id number] [place] Part B [id number] 2.0.1.168571.3.227.99.8646 .3165.0 Self [id number] Today's Options Medicare Commercial [id number] 2.0.1.622226.3.227.99.8646.3165.0 Self 0 [id number] Today's Options PFFS Commercial [id number] 2.840.1. 969299.3.227.99.572.97829.0 Self [id number] T [employer] Unrelated Medigap Part B [id number] 2.840.1.248606.3.227.99.572.70512.0 Self 1 [id number] Univ [employer] Unrel Medigap Part B [id number] 2.840.1.291804.3.227.99.572.53332.0 Self B [id number] Medicaid Medigap Part B [id number] 2.840.1.977895.3.227.99.572.2374 8.0 Self [id number] MEDICARE COMPLETE [id number] Today's Options PFFS Commercial [id number] 2.0.1. 668568.3.227.99.572.05216.0 Self [id number] T [employer] Unrelated Medigap Part B [id number] 2.0.1.732828.3.227.99.572.90728.0 Self 1 [id number] Univ [employer] Unrel Medigap Part B [id number] 2.840.1.260802.3.227.99.572.57092.0 Self B [id number] Medicaid Medigap Part B [id number] 2.840.1.887320.3.227.99.572.2374 8.0 Self [id number] [facility] Commercial [id number] 2.0.1.247600.3.227.99.572.91578.0 Self [id number] TODAYS OPTION MEDICARE [id number] [facility] [id number] TODAYS OPTION MEDICARE PI PI MEDICAID PI PI Today's Options PFFS gamigo [id number] 2.840.1. 616532.3.227.99.572.41833.0 Self [id number] T [employer] Unrelated Medigap Part B [id number] 2.840.1.943089.3.227.99.572.58706.0 Self 1 [id number] Univ Amer-[employer] Unrel Medigap Part B [id number] 2.16.840.1.614740.3.227.99.572.86658.0 Self B [id number] Medicaid Medigap Part B [id number] 2.16.840.1.788179.3.227.99.572.2374 8.0 Self [id number] [facility] Medigap Part B [id number] 2.16.840.1.060275.3.227.99.8646.3165.0 Self [id number] [facility] Medigap Part B [id number] 2.16.840.1.012415.3.227.99.8646.316 5.0 Self [id number] Today's Options Medicare Commercial [id number] 2.16.840.1.310626.3.227.99.8646.3165.0 Self 0 [id number] [place] Medigap Part B [id number] 2.16.840.1.484612.3.227.99.8646 .3165.0 Self [id number] [facility] Medicare Commercial [id number] 2.16.840.1.077476.3.227.99.8646.3165.0 Self [id number] Today's Options PFFS Commercial [id number] Self T O-Lindsay Unrelated Medigap Part B [id number] Self Medicaid Medigap Part B [id number] Self Univ Amer-Lindsay Unrel Medigap Part B [id number] Self U/HC Medicare Solutions Commercial [id number] Self MEDICAID [id number] SP [id number] [facility] [id number] S [id number] TODAYS OPTIONS/SLOVENIAN O [id number] S [id number] TODAYS OPTIONS/SLOVENIAN P UNAVAILABLE [id number] S UNAVAILABLE MEDICARE COMPLETE-[facility] P [id number] S [id number] MEDICARE [id number] SP [id number] A [id number] [place] [id number] SP [id number] M [id number] [facility] [id number] SP [id number] MEDICARE [id number] SP [id number] [place] [id number] SP [id number] MEDICARE [id number] SP [id number] [facility] O [id number] S [id number] MEDICAID M [id number] S [id number] UNHC COMMUNITY PLAN XIX [id number] 18 [id number] MEDICAID [id number] SP [id number] MEDICARE COMPLETE [id number] SP [id number] [place] Part B [id number] Self [id number] Today's Options Medicare Commercial [id number] Self [id number] ANSI-Not a Secondary Insurance [id number] ANSI-Medicare Part B [id number] ANSI-Medicare Part B [id number] ANSI-Medicaid [id number] ANSI-Medicare Part B [id number] ANSI-Not a Secondary Insurance [id number] ANSI-Medicare Part B [id number] ANSI-Medicaid [id number] ANSI-Medicare Part B [id number] ANSI-Medicare Part B [id number] ANSI-Not a Secondary Insurance [id number] ANSI-Medicaid [id number] Today's Options PFFS Commercial [id number] Self [id number] [employer] Unrelated Medigap Part B [id number] Self [id number] Univ Amer-[employer] Unrel Medigap Part B [id number] Self [id number] Medicaid Medigap Part B [id number] Self [id number] Today's Options Ppo Commercial [id number] Self [id number] [facility] Dual Cov Plan Commercial [id number] Self [id number] [facility]Medicare Solutions Commercial [id number] Self [id number] Today's Options PFFS Commercial [id number] Self [id number] T [employer]say Unrelated Medigap Part B [id number] Self [id number] Univ Amer-[employer] Unrel Medigap Part B [id number] Self [id number] Medicaid Medigap Part B [id number] Self [id number] Today's Options Ppo Commercial [id number] Self [id number] [facility] Dual Cov Plan Commercial [id number] Self [id number] ANSI-Medicare Part B [id number] ANS-Medicaid [id number] ANSI-Medicare Part B [id number] Problems, Conditions, and Diagnoses Code Display Name Description Problem Type Effective Dates Data Source(s) G47.00 Insomnia Insomnia, unspecified Problem 01/22/2021 12: 00:00 AM EDT eCW1 ([facility]) N18.32 548989735 Chronic kidney disease, stage 3b Problem 01/22/2021 12:00:00 AM EDT eCW1 ([facility]) E79.0 07455891 Hyperuricemia Problem 08/22/2020 12:00:00 AM EST eCW1 ([facility]) Surgeries/Procedures Procedure Description Date Indications Data Source(s) INTERROGATION EVAL IN PERSON 1/DUAL/AUDIO DIRECTOR LEAD PM 2020 12:00:00 AM EDT MEDENT ([facility]) Unclassified biologics 03/01/2021 12:00:00 AM EDT eCW1 ([facility]) INTERROGATION EVAL IN PERSON 1/DUAL/AUDIO DIRECTOR LEAD PM 2020 12:00:00 AM EDT MEDENT ([facility]) ECG ROUTINE ECG W/LEAST 12 LDS W/I&R 11/01/2020 12:00: 00 AM EDT MEDENT ([facility]) OFFICE OUTPATIENT VISIT 25 MINUTES 11/01/2020 12:00:00 AM EDT MEDENT ([facility]) Unclassified biologics 08/21/2020 12:00:00 AM EST eCW1 ([facility]) INTERROGATION EVAL IN PERSON 1/DUAL/AUDIO DIRECTOR LEAD PM 2020 12:00:00 AM EST MEDENT ([facility]) OFFICE OUTPATIENT VISIT 15 MINUTES 08/01/2020 12:00:00 AM EST MEDENT ([facility]) ECG ROUTINE ECG W/LEAST 12 LDS W/I&R 04/13/2020 12:00: 00 AM EDT MEDENT ([facility]) Results ID Date Data Source [id number] 05/10/2021 09:05:00 AM EDT [facility] Name Value Range Interpretation Code Description Data Leslye rce(s) Supporting Document(s) SARS-CoV-2 (COVID-19) RNA [Presence] in Respiratory specimen by LEVI with probe detection Not Detected [facility] This lab was ordered by [facility] and reported by [facility]. ID Date Data Source [id number] 12/19/2020 03:08:00 PM EDT MEDENT ([facility]) Name Value Range Interpretation Code Description Data Leslye rce(s) Supporting Document(s) Thyroid Stimulating Hormone 2.36 [place] DENT ([facility]) Uric Acid 7.9 2.7-8.4 MEDENT ([facility]) ID Date Data Source [id number] 12/19/2020 03:08:00 PM EDT [facility] Name Value Range Interpretation Code Description Data Leslye rce(s) Supporting Document(s) Triglycerides 110 MED[facility] ([facility]) HDL 50 40-60 [facility] Cholesterol 143 120-200 MED[facility] ([facility]) Cholesterol in LDL [Mass/volume] in Serum or Plasma by calculation 71 [facility] ([facility]) Chol/HDL Ratio 2.86 [facility] ([facility]) ID Date Data Source [id number] 12/19/2020 03:08:00 PM EDT [facility] Name Value Range Interpretation Code Description Data Leslye rce(s) Supporting Document(s) Albumin [Mass/volume] in Serum or Plasma 3.4 MED[facility] ([facility]) Alanine aminotransferase [Enzymatic activity/volume] in Serum or Pl asma 19 MED[facility] ([facility]) Calcium [Mass/volume] in Serum or Plasma 9.5 [facility] ([facility]) Carbon dioxide, total [Moles/volume] in Serum or Plasma 27 [facility] ([facility]) Chloride [Moles/volume] in Serum or Plasma 106 [facility] ([facility]) Potassium [Moles/volume] in Serum or Plasma 4.3 [facility] ([facility]) Alkaline phosphatase [Enzymatic activity/volume] in Serum or Plasma 6 1 [facility] ([facility]) Protein [Mass/volume] in Serum or Plasma 7.0 [facility] ([facility]) Sodium 139 [facility] ([facility] Aspartate aminotransferase [Enzymatic activity/volume] in Serum or Plasma 19 [facility] ([facility]) Glucose 80 70-100 [facility] Urea nitrogen [Mass/volume] in Serum or Plasma 22 [facility] ([facility]) Creatinine For GFR 1.54 MED[facility] ([facility]) ID Date Data Source [id number] 12/19/2020 03:08:00 PM EDT MEDENT ([facility]) Name Value Range Interpretation Code Description Data Leslye rce(s) Supporting Document(s) White Blood Count 6.7 4.3-10.9 MED[facility] ([facility]) Red Blood Count 3.94 4.70-6.20 MED[facility] ([facility]io [facility]) Hemoglobin 12.5 13.0-17.0 MEDENT ([facility]iology [facility]) Platelets 264 130-400 MED[facility] ([facility]) Hematocrit 38.4 39.0-50.0 MEDENT ([facility]) ID Date Data Source [id number] 08/28/2020 09:00:00 AM EST [facility] Name Value Range Interpretation Code Description Data Leslye rce(s) Supporting Document(s) SARS coronavirus 2 RNA Not Detected [facility] [place] This lab was ordered by [facility] and reported by [facility]. ID Date Data Source [id number] 08/21/2020 10:00:00 AM EST [facility] Name Value Range Interpretation Code Description Data Leslye rce(s) Supporting Document(s) SARS coronavirus 2 RNA Not Detected [facility] [place] This lab was ordered by [facility] and reported by [facility]. ID Date Data Source [id number] 08/15/2020 09:51:00 AM EST [facility]ENT ([facility]) Name Value Range Interpretation Code Description Data Leslye rce(s) Supporting Document(s) Albumin [Mass/volume] in Serum or Plasma 3.3 [facility] ([facility]) Calcium [Mass/volume] in Serum or Plasma 9.7 [facility] ([facility]) Carbon dioxide, total [Moles/volume] in Serum or Plasma 32 [facility] ([facility]) Alanine aminotransferase [Enzymatic activity/volume] in Serum or Pl asma 16 [facility] ([facility]) Alkaline phosphatase [Enzymatic activity/volume] in Serum or Plasma 6 4 [facility] ([facility]) Potassium [Moles/volume] in Serum or Plasma 3.9 [facility] ([facility]) Chloride [Moles/volume] in Serum or Plasma 102 [facility] ([facility]) Protein [Mass/volume] in Serum or Plasma 6.9 [facility] ([facility]) Sodium 141 [facility] Aspartate aminotransferase [Enzymatic activity/volume] in Serum or Plasma 19 [facility] ([facility]) Glucose 84 70-100 [facility] Creatinine For GFR 1.83 [facility] ([facility]) Urea nitrogen [Mass/volume] in Serum or Plasma 27 [facility] ([facility]) ID Date Data Source [id number] 08/15/2020 09:51:00 AM EST [facility] ([facility]) Name Value Range Interpretation Code Description Data Leslye rce(s) Supporting Document(s) Thyroid Stimulating Hormone 0.681 [place] DENT ([facility]) ID Date Data Source [id number] 08/14/2020 06:33:00 AM EST [facility] Name Value Range Interpretation Code Description Data Leslye rce(s) Supporting Document(s) SARS coronavirus 2 RNA Not Detected [facility] [place] This lab was ordered by [facility] and reported by [facility]. ID Date Data Source [id number] 08/10/2020 07:00:00 AM EST [facility] Name Value Range Interpretation Code Description Data Leslye rce(s) Supporting Document(s) SARS coronavirus 2 RNA [Presence] in Res piratory specimen by LEVI with probe detection [facility] ordered by [facility] a nd reported by [facility]. ID Date Data Source [id number] 08/09/2020 07:25:00 AM EST [facility] Name Value Range Interpretation Code Description Data Leslye rce(s) Supporting Document(s) SARS coronavirus 2 RNA Not Detected [facility] [place] This lab was ordered by [facility] and reported by [facility]. ID Date Data Source [id number] 08/02/2020 09:50:00 AM EST [facility] Name Value Range Interpretation Code Description Data Leslye rce(s) Supporting Document(s) SARS coronavirus 2 RNA Not Detected [facility] [place] This lab was ordered by [facility] and reported by [facility]. ID Date Data Source [id number] 07/27/2020 10:40:00 AM EST [facility] ([facility]) Name Value Range Interpretation Code Description Data Leslye rce(s) Supporting Document(s) Sodium 138 [facility] ([facility]) Calcium [Mass/volume] in Serum or Plasma 9.6 [facility] ([facility]) Carbon dioxide, total [Moles/volume] in Serum or Plasma 30 [facility] ([facility]) Chloride [Moles/volume] in Serum or Plasma 101 [facility] ([facility]) Glucose 85 70-100 [facility] ([facility]) Potassium [Moles/volume] in Serum or Plasma 4.2 [facility] ([facility]) Blood Urea Nitrogen 37 7-18 [facility] ([facility]) Creatinine 1.58 0.55-1.30 [facility] ([facility]) Glomerular filtration rate/1.73 sq M.pre dicted [Volume Rate/Area] in Serum or Plasma by Creatinine-based formula (MDRD) 32.9 [facility] ([facility]) ID Date Data Source [id number] 07/27/2020 10:40:00 AM EST [facility] ([facility]) Name Value Range Interpretation Code Description Data Leslye rce(s) Supporting Document(s) White Blood Count 7.8 4.0-10.0 [facility] ([facility]) Red Blood Count 4.02 4.00-5.40 [facility] ([facility]) Platelets 286 150-450 [facility] ([facility]) Hematocrit 38.4 [facility] ([facility]) Hemoglobin 12.4 [facility] ([facility]) ID Date Data Source [id number] 07/26/2020 08:00:00 AM EST [facility] Name Value Range Interpretation Code Description Data Leslye rce(s) Supporting Document(s) SARS coronavirus 2 RNA Not Detected [facility] [place] This lab was ordered by [facility] and reported by [facility]. ID Date Data Source [id number] 07/25/2020 10:39:00 AM EST [facility] ([facility]) Name Value Range Interpretation Code Description Data Leslye rce(s) Supporting Document(s) Thyroid Stimulating Hormone 0.098 [facility] ([facility]) ID Date Data Source [id number] 07/19/2020 11:00:00 AM EST [facility] Name Value Range Interpretation Code Description Data Leslye rce(s) Supporting Document(s) SARS coronavirus 2 RNA Not Detected [facility] [place] This lab was ordered by [facility] and reported by [facility]. ID Date Data Source [id number] 07/12/2020 11:00:00 AM EST [facility] Name Value Range Interpretation Code Description Data Leslye rce(s) Supporting Document(s) SARS coronavirus 2 RNA Not Detected [facility] [place] This lab was ordered by [facility] and reported by [facility]. ID Date Data Source [id number] 07/05/2020 08:41:00 AM EST [facility] Name Value Range Interpretation Code Description Data Leslye rce(s) Supporting Document(s) SARS coronavirus 2 RNA [facility] This lab was ordered by [facility] and reported by [facility]. ID Date Data Source [id number] 06/28/2020 05:10:00 AM EST [facility] Name Value Range Interpretation Code Description Data Leslye rce(s) Supporting Document(s) SARS coronavirus 2 RNA [facility] This lab was ordered by [facility] and reported by [facility]. ID Date Data Source [id number] 06/21/2020 09:00:00 AM EST [facility] Name Value Range Interpretation Code Description Data Leslye rce(s) Supporting Document(s) SARS coronavirus 2 RNA [facility] This lab was ordered by [facility] and reported by [facility]. ID Date Data Source [id number] 06/14/2020 12:00:00 PM EST [facility] Name Value Range Interpretation Code Description Data Leslye rce(s) Supporting Document(s) SARS coronavirus 2 RNA [facility] This lab was ordered by [facility] and reported by [facility]. ID Date Data Source [id number] 06/10/2020 08:30:00 AM EST [facility] Name Value Range Interpretation Code Description Data Leslye rce(s) Supporting Document(s) SARS coronavirus 2 RNA [facility] This lab was ordered by [facility] and reported by [facility]. ID Date Data Source [id number] 06/07/2020 10:30:00 AM EST [facility] Name Value Range Interpretation Code Description Data Leslye rce(s) Supporting Document(s) SARS coronavirus 2 RNA [facility] This lab was ordered by [facility] and reported by [facility]. ID Date Data Source [id number] 05/31/2020 11:00:00 AM EST [facility] Name Value Range Interpretation Code Description Data Leslye rce(s) Supporting Document(s) SARS coronavirus 2 RNA [facility] This lab was ordered by [facility] and reported by [facility]. ID Date Data Source [id number] 02/28/2020 07:37:00 [place] [address] OPERATIVE SUMMARYNAME: TEETEE MAURO DATE OF : 1930TTENDING PHYS: Damien Walker MD DATE: 01/19/20 MR#: [id number] OF PROCEDURE: 01/19/2020PREOPERATIVE DIAGNOSIS:Ptosis both upper lids.POSTOPERATIVE DIAGNOSIS:Ptosis both upper lids.PROCEDURE:Blepharoplasty and reattachment of the levator aponeurosis both upper lids.SURGEON: Damien Walker MD.PRODUCTION LINE TECHNICIAN: None.COMPLICATIONS: None.INDICATION: Droopy lids interfering with daily activities.DETAIL OF PROCEDURE:Patient was brought to the operating room and lied in supine position. Upper face was prepped anddraped in a sterile fashion for upper lid surgery. Both upper lids were marked with a sterile markeralong the lines of proposed skin excision with the help of the electrocautery. Both upper lids wereinfiltrated with 2% lidocaine with 1:100,000 epinephrine followed by gentle massage. Attentionwas then diverted to the right upper lid, where the pre-marked skin was excised using theelectrocautery. Hemostasis was obtained as necessary. After the excision of the skin, deeperdissection was carried out to isolate the medial and lateral fat pads, which were then cauterized atthe base. Deeper dissection revealed dehiscence of the levator aponeurosis, which was reattachedusing 6-0 nylon sutures. The wound was closed in two layers, the deeper layer was closed using 6-0Vicryl interrupted sutures and the skin was closed using 6-0 nylon suture in a running fashion.Exactly the same procedure was repeated for the left upper lid. After the surgery ice packs wereapplied, antibiotic ointment was applied to the wound. Patient was returned to the recovery room,where detailed instructions were given. [address] [place] [address] OPERATIVE SUMMARYNAME: TEETEE MAURO DATE OF : 1930TTENDING PHYS: Damien Walker MD DATE: 01/19/20 MR#: [id number]: Damien Walker MD 02/25/20 14:49DT: SHANNEN 02/28/20 07:34DS: Damien aWlker MD 03/15/20 13:09 2 Name Value Range Interpretation Code Description Data Leslye rce(s) Supporting Document(s) Procedure Social History Code Duration Value Status Description Data Source(s ) Smoking 01/22/2021 12:00:00 AM EDT Never Smoker completed Never S moker eCW1 ([facility]) Smoking 01/22/2021 12:00:00 AM EDT Never Smoker completed Never S moker eCW1 ([facility]) Smoking 01/22/2021 12:00:00 AM EDT Never Smoker completed Never S moker eCW1 ([facility]) Smoking 01/22/2021 12:00:00 AM EDT Never Smoker completed Never S moker eCW1 ([facility]) Smoking 01/22/2021 12:00:00 AM EDT Never Smoker completed Never S moker eCW1 ([facility]) Smoking 11/01/2020 12:00:00 AM EDT Patient has never smoked co mpleted Patient has never smoked MEDENT ([facility]) Smoking 08/17/2020 12:00:00 AM EST Never Smoker completed Never S moker eCW1 ([facility]) Smoking 08/17/2020 12:00:00 AM EST Never Smoker completed Never S moker eCW1 ([facility]) Smoking 08/17/2020 12:00:00 AM EST Never Smoker completed Never S moker eCW1 ([facility]) Vital Signs ID Date Data Source UNK Name Value Range Interpretation Code Description Data Source(s) Body weight 157.4 [lb_av] 157.4 [lb_av] eCW1 ([facility]) Body height 61 [in_i] 61 [in_i] eCW1 ([facility]) Body mass index (BMI) [Ratio] 29.74 kg/m2 29.74 kg/m2 eCW1 ([facility]) Heart rate 74 /min 74 /min [facility] Respiratory rate 20 /min 20 /min eCW1 ([facility]) Body temperature 98 [degF] 98 [degF] eCW1 ([facility]) Systolic blood pressure 124 mm[Hg] 124 mm[Hg] e CW1 ([facility]) Diastolic blood pressure 80 mm[Hg] 80 mm[Hg] eCW1 ([facility]) Body weight 152.00 [lb_av] 152.00 [lb_av] MEDEN T ([facility]) Body height 61 [in_i] 61 [in_i] MEDENT ([facility] 5'1" Body mass index (BMI) [Ratio] 28.7 kg/m2 28.7 k g/m2 [facility] ([facility]) Heart rate 61 /min 61 /min [facility] ([facility]) Systolic blood pressure--sitting 118 mm[Hg] 118 mm[Hg] MEDENT ([facility]) Ra, medium cuff Diastolic blood pressure--sitting 76 mm[Hg] 76 mm[Hg] MEDENT ([facility]) Ra, medium cuff Body weight 146.2 [lb_av] 146.2 [lb_av] eCW1 ([facility]) Body height 61 [in_i] 61 [in_i] eCW1 ([facility]) Body mass index (BMI) [Ratio] 27.62 kg/m2 27.62 kg/m2 eCW1 ([facility]) Heart rate 85 /min 85 /min eCW1 ([facility]) Respiratory rate 20 /min 20 /min eCW1 ([facility]) Body temperature 97.2 [degF] 97.2 [degF] eCW1 ( [facility]) Systolic blood pressure 130 mm[Hg] 130 mm[Hg] e CW1 ([facility]) Diastolic blood pressure 64 mm[Hg] 64 mm[Hg] eCW1 ([facility]) Heart rate 64 /min 64 /min [facility] ([facility]) regular Body weight 143.00 [lb_av] 143.00 [lb_av] MEDEN T ([facility]) Body height 61 [in_i] 61 [in_i] [facility] ([facility]) 5'1" Body mass index (BMI) [Ratio] 27.0 kg/m2 27.0 k g/m2 [facility] ([facility]) Respiratory rate 16 /min 16 /min [facility] ( [facility]) nonlabored Systolic blood pressure--sitting 106 mm[Hg] 106 mm[Hg] MEDENT ([facility]) Ra, medium cuff Diastolic blood pressure--sitting 58 mm[Hg] 58 mm[Hg] MEDENT ([facility]) Ra, medium cuff Body height 61 [in_i] 61 [in_i] [facility] ([facility]) 5'1" Body weight 148.00 [lb_av] 148.00 [lb_av] MEDEN T ([facility]) Body mass index (BMI) [Ratio] 28.0 kg/m2 28.0 k g/m2 [facility] ([facility]) Heart rate 60 /min 60 /min [facility] ([facility]) Systolic blood pressure--sitting 126 mm[Hg] 126 mm[Hg] MEDENT ([facility]) adult cuff, Ra Diastolic blood pressure--sitting 68 mm[Hg] 68 mm[Hg] MEDENT ([facility]) adult cuff, Ra ID Date Data Source [id number] 03/15/2020 01:09:17 PM EDT [facility] Name Value Range Interpretation Code Description Data Source(s) WEIGHT RECORDED 155.00 pounds 155.00 pounds [facility] Height 59 Inches 059 Inches [facility] Patient Treatment Plan of Care Planned Activity Planned Date Details Description Data Source (s) Doxepin Hydrochloride 10 MG Oral Capsule 01/22/2021 12:00:00 AM EDT eCW1 ([facility]) Doxepin Hydrochloride 10 MG Oral Capsule 01/22/2021 12:00:00 AM EDT eCW1 ([facility]) Doxepin Hydrochloride 10 MG Oral Capsule 01/22/2021 12:00:00 AM EDT eCW1 ([facility]) Doxepin Hydrochloride 10 MG Oral Capsule 01/22/2021 12:00:00 AM EDT eCW1 ([facility]) Doxepin Hydrochloride 10 MG Oral Capsule 01/22/2021 12:00:00 AM EDT eCW1 ([facility]) Hydrogen Peroxide 30 MG/ML Topical Solution 08/21/2020 12:00:00 AM EST eCW1 ([facility]) Hydrogen Peroxide 30 MG/ML Topical Solution 08/21/2020 12:00:00 AM EST eCW1 ([facility]) Hydrogen Peroxide 30 MG/ML Topical Solution 08/21/2020 12:00:00 AM EST eCW1 ([facility]) Diphenhydramine Hydrochloride 25 MG Oral Capsule 08/14/2020 12:00:0 0 AM EST eCW1 ([facility]) Carboxymethylcellulose Sodium 2.5 MG/ML Ophthalmic Dori ution [Thera Tears] 08/14/2020 12:00:00 AM EST eCW1 ([facility]) Diphenhydramine Hydrochloride 25 MG Oral Capsule 08/14/2020 12:00:0 0 AM EST eCW1 ([facility]) Carboxymethylcellulose Sodium 2.5 MG/ML Ophthalmic Dori ution [Thera Tears] 08/14/2020 12:00:00 AM EST eCW1 ([facility]) Diphenhydramine Hydrochloride 25 MG Oral Capsule 08/14/2020 12:00:0 0 AM EST eCW1 ([facility]) Carboxymethylcellulose Sodium 2.5 MG/ML Ophthalmic Dori ution [Thera Tears] 08/14/2020 12:00:00 AM EST eCW1 ([facility])
--- OUTSIDE RECORDS SUMMARY | 2021-05-15 10:54 | CCD | Continuity of Care Document ---
Author Author Aria DELACRUZ PA Organization Unknown Address [address] [place] [address] [place] [address] Phone [phone] Care Team Providers Care Cashier Assistant Name Role Phone Rome Stevens MD AUTM [phone] Castillo Santiago MD AUTM [phone] Luis Alberto Smith MD AUTM [phone] Jerrod Vazquez MD AUTM [phone] Mono Sahni MD AUTM [phone] Desirae Vidal RN [employer] AUTM [phone] Problems Active Problems Provider Date Benign essential hypertension YOBANI Ng On set: 05/17/2011 First degree atrioventricular block AMBIKA Ng Onset: 05/17/2011 Pure hypercholesterolemia YOBANI Ng Onset: 05/17/2011 Sinus node dysfunction YOBANI Ng Onset: Cardiac pacemaker in situ YOBANI Ng Onset: 05/24/2011 Electrocardiogram abnormal Ned Riley MD Onset: 2010 Benign hypertensive heart disease without congestive h eart failure Ned Riley MD Onset: 06/11/2011 Heart block Ned Riley MD Onset: 06/11/2011 Obesity Ned Riley MD Onset: 06/11/2011 Preoperative cardiovascular examination YOBANI Ng Onset: 08/09/2011 Mixed hyperlipidemia DARREN lFynn Onset: 04/29/2017 Dietary management surveillance DARREN Flynn Onset: 04/29/2017 Dyspnea ROMAN Chu Onset: 09/30/2017 Atherosclerotic heart disease of [place] coronary arter y without angina pectoris ROMAN Chu Onset: 09/30/2017 Chronic diastolic heart failure ROMAN Chu Onset: 10/13/2017 Hypertensive heart disease with heart failure ROMAN Baez Onset: 05/15/2018 Social History Type Date Description Comments Sex Unknown Tobacco Use Start: Unknown Never Smoked Cigarettes ETOH Use Does not consume alcohol Tobacco Use Start: Unknown Patient has never smoked Smoking Status Reviewed: 11/01/20 Patient has never smoked Exercise Type/Frequency Walks 3 times a week Exercise Type/Frequency Does housework twice a w elim ira Exercise Limitations None Allergies and adverse reactions Active Allergies Criticality Reaction | Severity Comments Date Aspirin Unable to assess criticality mouth swelli ng 01/31/2010 Lisinopril Unable to assess criticality throat marielos ess 01/23/2012 Medications Active Medications SIG Qnty Indications Ordering Provide r Date Metoprolol Tartrate 50mg Tablets 1 by mouth twice a day Mono Sahni MD 10/31/2020 Plavix 75mg Tablets 1 by mouth every day Desirae Vidal RN [facility] 10/31/2020 Spironolactone 25mg Tablets 1 by mouth every day I50.32 Desirae Vidal RN [facility] 11/01/19 21 Torsemide 10mg Tablets 1 by mouth every two days I50.32 Desirae Vidal RN FNP 11/01/19 21 Calcitriol 0.25mcg Capsules 1 by mouth every day Desirae Vidal RN FNP 11/01/19 21 Amlodipine Besylate 5mg Tablets 1 by mouth every day Desirae Vidal RN FNP 11/01/19 21 Calcium 600 + Minerals 194-363vm-Cotn Tablets 1 by mouth once daily Desirae Vidal RN FNP 10/31/2020 Milk Of Magnesia 2400mg/30ML Suspe nsion give 10 mls by mouth as needed once daily Desirae Staples RN FNP 10/31/2020 Acetaminophen 325mg Tablets 2 every 4 hours as needed Desirae iVdal RN FNP 11/01/19 21 Nitrostat 0.4mg Tablets Sub 1 tab s/l every 5 min. when necessary for chest discomfort Desirae Vidal RN [employer] 10/31/2020 Theratears 0.25% Solution instill 1 drop in each eye as needed as directed Danette Vidal RN FNP 10/31/2020 Pqtrqkn-Bdriowfv-Cacmcwtmaln [id number]/5ML Suspension give 30 mLs by mouth up to 4 times daily as needed Desirae Vidal RN [facility] 10/31/2020 Benadryl Allergy 25mg Tablets 1 by mouth daily at bedtime as needed Desirae Vidal RN [facility] [employer] 10/31/2020 Atorvastatin Calcium 10mg Tablets 1 by mouth once daily at bedtime Mono Sahni MD Synthroid 50mcg Tablets 1 po qd Unknown 01/31/2010 Immunizations Description No Information Available Vital Signs Date Vital Result Comment 11/01/2020 10:42am Weight 152.00 lb Home Weight 150lb Height 61 inches 5'1" BMI (Body Mass Index) 28.7 kg/m2 Heart Rate 61 /min BP Systolic Sitting 118 mmHg Ra, medium cuff BP Diastolic Sitting 76 mmHg Ra, medium cuff 08/01/2020 2:41pm Weight 143.00 lb Home Weight 144lb Home weight Height 61 inches 5'1" BMI (Body Mass Index) 27.0 kg/m2 Heart Rate 64 /min regular Respiratory Rate 16 /min nonlabored BP Systolic Sitting 106 mmHg Ra, medium cuff BP Diastolic Sitting 58 mmHg Ra, medium cuff Results Test Acquired Date Facility Test Result H/L Range Note CBC without Differential 12/19/2020 [facility] - White Blood Count 6.7 4.3-10.9 Red Blood Count 3.94 Low 4.70-6.20 Platelets 264 130-400 Hemoglobin 12.5 Low 13.0-17.0 Hematocrit 38.4 Low 39.0-50.0 CMP 12/19/2020 [facility] ([facility])- - Albumin Serum/Plasma 3.4 Alt - SGPT 19 Calcium Ser/Plasma Mass/Vol 9.5 Carbon Dioxide Ser/Plasm 27 Chloride Serum/Plasma 106 Alkaline Phosphatase 61 Potassium 4.3 Protein Total 7.0 Sodium 139 Ast - Sgot 19 BUN - Urea Nitrogen 22 Glucose 80 70-100 Creatinine For GFR 1.54 Lipid Profile/Cardiac Risk Pro 12/19/2020 [facility] ([facility])- - Triglycerides 110 Cholesterol 143 120-200 HDL 50 40-60 LDL Cholesterol 71 Chol/HDL Ratio 2.86 Laboratory test finding 12/19/2020 [facility] ([facility])- - Thyroid Stimulating Hormone 2.36 Uric Acid 7.9 2.7-8.4 Procedures Date Code Description Status 05/02/2021 98607 Pacer Interrogation Any Leads Co mpleted 01/29/2021 28581 Pacer Interrogation Any Leads Co mpleted 11/01/2020 90570 Office/Outpatient Established Mo d MDM 30-39 Min Completed 11/01/2020 83206 ECG 12-Lead Completed Medical Devices Description No Information Available Encounters Type Date Location Provider Dx Diagnosis Office Visit 11/01/2020 10:15a Main Office ROMAN Taylor I25 .10 Athscl heart disease of [place] coronary artery w/o ang pctrs I50.32 Chronic diastolic (congestiv e) heart failure I11.0 Hypertensive heart disease w ith heart failure I49.5 Sick sinus syndrome Z95.0 Presence of cardiac pacemake r R94.31 Abnormal electrocardiogram [ ECG] [EKG] Z71.3 Dietary counseling and surve illance Assessments Date Code Description Provider 05/02/2021 Z95.0 Presence of cardiac pacemaker ROMAN Krishnamurthy 01/29/2021 Z95.0 Presence of cardiac pacemaker ROMAN Krishnamurthy 11/01/2020 I25.10 Atherosclerotic heart disease of [place] coronary artery with ROMAN Taylor 11/01/2020 I50.32 Chronic diastolic (congestive) h eart failure ROMAN Taylor 11/01/2020 I11.0 Hypertensive heart disease with heart failure ROMAN Taylor 11/01/2020 I49.5 Sick sinus syndrome ROMAN Taylor 11/01/2020 Z95.0 Presence of cardiac pacemaker Ca ROMAN Curry 11/01/2020 R94.31 Abnormal electrocardiogram [ECG] [EKG] ROMAN Taylor 11/01/2020 Z71.3 Dietary counseling and surveilla nce ROMAN Taylor Plan of Treatment Future Appointment(s):* 05/11/2021 9:45 am - ROMAN Taylor at Main Office 11/01/2020 - ROMAN Taylor* I25.10 Atherosclerotic heart disease of [place] coronary artery with* Recommendations:* Continue Plavix, atorvastatin, and metoprolol at the current dosages Advised patient to contact our office with any chest pain, shortness of breath, new or concerning symptoms * I50.32 Chronic diastolic (congestive) heart failure* Recommendations:* Continue torsemide, spironolactone, metoprolol at current dosages Advised patient to continue to please monitor her weight at home and to alert us with a weight gain greater than 3 pounds Advised patient to continue with her sodium and fluid restriction as she has been, she has had good results * I11.0 Hypertensive heart disease with heart failure* Recommendations:* Continue amlodipine, metoprolol, torsemide, and spironolactone at the current dosages Advised patient to monitor blood pressures at home and to alert our office with readings >140/>90 * I49.5 Sick sinus syndrome * Z95.0 Presence of cardiac pacemaker* Recommendations:* Continue 91 day home/12 month office pacer checks * R94.31 Abnormal electrocardiogram [ECG] [EKG]* Recommendations:* No further evaluation is needed at this time. * Z71.3 Dietary counseling and surveillance* Recommendations:* Recommended for patient to follow a more whole food diet. Advised patient to avoid overly processed foods and packaged foods. Advised patient to avoid sodas, juices and other liquid calories. Recommended at least 30 minutes of exercise 3 days a week. * All * Follow up:* Follow up in 6 months Functional Status Functional Condition Comment Date Status Independent with all ADL's Activ e Requires assistance with ambulating uses 4 wheeled wal ker with seat and hand brakes Active Mental Status Description No Information Available Referrals Description No Information Available
[2021-05-15] MEDS ORDERED: CALC600T57 PO (11:51)
[2021-05-15] MEDS ORDERED: LIDOCAINE 1% MDV 20ML VIAL As Ordered ONE (12:22)
[2021-05-15] MEDS ORDERED: ETOMIDATE INJ 20MG/10ML VIAL As Ordered ONE (13:03)
[2021-05-15] MEDS ORDERED: fentaNYL 100 MCG/2 ML INJECTION (J3010) As Ordered ONE (13:03)
[2021-05-15] MEDS ORDERED: propofoL 200 MG/20 ML VIAL As Ordered ONE (13:03)
[2021-05-15] MEDS ORDERED: MIDAZOLAM INJ 2MG/2ML VIAL (J2250 PER 1MG) As Ordered ONE (13:03)
[2021-05-15] MEDS ORDERED: PHENYLephrine 500MCG 5ML (100MCG/ML) SYRINGE As Ordered ONE ×2 (13:18→13:58)
[2021-05-15 15:17] VITALS: BP 124/65
--- NOTE | 2021-05-15 15:37 | RO ---
OPERATIVE NOTE DATE OF OPERATION: 05/15/2021 PREOPERATIVE DIAGNOSIS: Pacemaker battery depletion. POSTOPERATIVE DIAGNOSIS: Pacemaker battery depletion. FINDINGS: Pacemaker battery depletion. PROCEDURE PERFORMED: Explantation of old dual chamber pacemaker pulse generator, implantation of new dual chamber pacemaker pulse generator. SURGEON: Luis Alberto Crowley MD PSYCH NP: None. ANESTHESIA: Lidocaine 1% local/monitored anesthesia care. SPECIMEN: Old [employer] dual chamber pacemaker pulse generator. ESTIMATED BLOOD LOSS: Less than 3 mL. No blood products replaced. DRAINS: None. COMPLICATIONS: None. DESCRIPTION OF PROCEDURE: The patient was prepped and draped over the left pectoralis region. 3M Ioban drape was applied. Lidocaine 1% was used for local anesthetic. An incision was made through the existing pacemaker incision line using a PEAK PlasmaBlade and extending that incision less than 1 cm on both sides. Peak PlasmaBlade was used to get through the fatty layer. I then used fine scissors dissection to cut through the ant capsule overlying the pacemaker pulse generator. The suture holding the pacemaker pulse generator was cut with 15-blade. The pacemaker pulse generator was then removed from the pocket. The terminal pins were then removed from the header after the set screws and each one was placed onto alligator connector cables. The leads were tested with pulse analyzer and found to be satisfactory. The terminal pins of the atrial and ventricular leads were plugged into the header of the new pacemaker pulse generator and each one was secured by tightening the set screws. A pole test was applied to each lead to demonstrate it was secure within the header. A medium size TYRX antimicrobial envelope was cut into four pieces and placed into the pacemaker pocket. The pacemaker pulse generator was then placed into the pacemaker pocket with the excess lead material below. The deep layer was closed using individual sutures consisting of 2-0 Vicryl. The skin was closed using a continuous subcuticular suture consisting of 4-0 Biosyn. Prineo dressing was applied. The patient tolerated the procedure well without any immediate complications. The existing pacemaker pulse generator that was removed was [employer] model 2210 with serial #[id number], originally implanted 05/13/2011. The new pacemaker pulse generator implanted was [employer] Assurity MRI with model #[id number] with serial #[id number]. TYRX Antimicrobial Envelope had reference #[id number] with lot #[id number]. The existing right atrial lead was [employer] model #2088 with serial #[id number], originally implanted 05/13/2011. Device based testing in the operating room for the existing atrial lead showed capture threshold of 0.75 volts at 0.4 milliseconds, lead impedance of 440. No P waves present to measure. The existing right ventricular lead was [employer] model #2088 with serial #[id number], originally implanted 05/13/2011. Device based testing in the operating room through the new pacemaker for right ventricular lead showed capture threshold of 0.75 volts at 0.4 milliseconds with lead impedance of 500 ohms and R wave amplitude of 4.7 millivolts.
== END 2021-05-15 15:39 | disposition home or self-care (01) ==
LOC: M SDC 10:48
PROVIDERS: ATTEND Internal Medicine Cardiovascular Disease
DX: Z45.010 Encounter for checking and testing of cardiac pacemaker pulse generator [battery] (principal); I49.5 Sick sinus syndrome; I11.0 Hypertensive heart disease with heart failure; I50.9 Heart failure, unspecified; E78.00 Pure hypercholesterolemia, unspecified; R60.0 Localized edema; I25.10 Atherosclerotic heart disease of native coronary artery without angina pectoris; E03.9 Hypothyroidism, unspecified; K22.70 Barrett's esophagus without dysplasia; M19.90 Unspecified osteoarthritis, unspecified site; M51.9 Unspecified thoracic, thoracolumbar and lumbosacral intervertebral disc disorder; G43.909 Migraine, unspecified, not intractable, without status migrainosus; M81.0 Age-related osteoporosis without current pathological fracture; Z88.6 Allergy status to analgesic agent; Z88.8 Allergy status to other drugs, medicaments and biological substances; Z79.899 Other long term (current) drug therapy; Z79.02 Long term (current) use of antithrombotics/antiplatelets; Z79.01 Long term (current) use of anticoagulants
CPT/HCPCS: 33228; C1785; J0690; J2370; J3010

== ENCOUNTER → 2021-07-24 | Outpatient (REF) | payer MEDICARE, MEDICAID ==
[~2021-07-24] MED LIST changes: +CALC600T57 PO; +CARB1DRO11 OU; -LIDOCAINE 1% MDV 20ML VIAL SQ PRN; +LOSA25TA13 PO; -LOSA25TA14 PO; -LR 1,000 ML IV ONE; -THERSOL2 OU; -ceFAZolin SOD 2 GM in IV 1 EA IV ONE
== END ==
LOC: M SFHCPLAZ 09:37
PROVIDERS: ATTEND Internal Medicine
DX: I12.9 Hypertensive chronic kidney disease with stage 1 through stage 4 chronic kidney disease, or unspecified chronic kidney disease (principal); E03.9 Hypothyroidism, unspecified; E79.0 Hyperuricemia without signs of inflammatory arthritis and tophaceous disease; I25.10 Atherosclerotic heart disease of native coronary artery without angina pectoris; G25.81 Restless legs syndrome

== ENCOUNTER → 2021-07-24 | Outpatient (CLI) | payer MEDICARE, MEDICAID ==
[2021-07-24 10:38] LABS: BASO % 0.4 % (0.0-1.0); EOS # 0.4 10^3/uL (0.0-0.5); EOS % 3.9 % (0.0-3.0); HEMATOCRIT 41.2 % (36.0-47.0); HEMOGLOBIN 13.3 g/dl (12.0-15.5); LYMPH # 2.5 10^3/uL (1.5-5.0); LYMPH % 26.8 % (24.0-44.0); MEAN CORPUSCULAR HEMOGLOBIN 31.4 pg (27.0-33.0); MEAN CORPUSCULAR HGB CONC 32.3 g/dl (32.0-36.5); MEAN CORPUSCULAR VOLUME 97.2 fl (80.0-96.0); MONO # 1.1 10^3/uL (0.0-0.8); MONO % 11.8 % (2.0-8.0); NEUTROPHILS # 5.3 10^3/uL (1.5-8.5); NEUTROPHILS % 56.7 % (36.0-66.0); PLATELET COUNT, AUTOMATED 284 10^3/uL (150-450); RED BLOOD COUNT 4.24 10^6/uL (4.00-5.40); WHITE BLOOD COUNT 9.3 10^3/uL (4.0-10.0)
[2021-07-24 13:50] LABS: ALBUMIN 3.6 GM/DL (3.2-5.2); BILIRUBIN,TOTAL 0.4 MG/DL (0.2-1.0); CALCIUM LEVEL 10.6 MG/DL (8.8-10.2); CREATININE FOR GFR 2.33 MG/DL (0.55-1.30); GLOMERULAR FILTRATION RATE 20.9 (>32); MAGNESIUM LEVEL 2.2 MG/DL (1.8-2.4); POTASSIUM SERUM 4.2 MEQ/L (3.5-5.1); PTH INTACT 12.5 PG/ML (18.5-88.0); THYROID STIMULATING HORMONE 3.27 uIU/ML (0.358-3.740); TOTAL PROTEIN 7.4 GM/DL (6.4-8.2); URIC ACID 10.3 MG/DL (2.6-6.0)
[2021-07-25 09:49] LABS: FOLATE 20.1 NG/ML
== END ==
LOC: M PLAIMG 09:57
PROVIDERS: ATTEND Internal Medicine
DX: R06.00 Dyspnea, unspecified (principal); I12.9 Hypertensive chronic kidney disease with stage 1 through stage 4 chronic kidney disease, or unspecified chronic kidney disease; E03.9 Hypothyroidism, unspecified; E79.0 Hyperuricemia without signs of inflammatory arthritis and tophaceous disease; I25.10 Atherosclerotic heart disease of native coronary artery without angina pectoris; G25.81 Restless legs syndrome; Z95.0 Presence of cardiac pacemaker

== ENCOUNTER → 2021-08-22 | Outpatient (REF) | payer MEDICARE, MEDICAID ==
[2021-08-22 12:13] LABS: CALCIUM LEVEL 9.2 MG/DL (8.8-10.2); CREATININE FOR GFR 1.76 MG/DL (0.55-1.30); GLOMERULAR FILTRATION RATE 28.9 (>32); POTASSIUM SERUM 5.2 MEQ/L (3.5-5.1)
[2021-08-22 12:56] LABS: PTH INTACT 37.7 PG/ML (18.5-88.0)
== END ==
PROVIDERS: ATTEND Internal Medicine
DX: I12.9 Hypertensive chronic kidney disease with stage 1 through stage 4 chronic kidney disease, or unspecified chronic kidney disease (principal); N18.32 Chronic kidney disease, stage 3b

== ENCOUNTER → 2022-01-14 | Outpatient (REF) | payer MEDICARE, MEDICAID ==
[2022-01-14 10:07] LABS: BASO % 0.5 % (0.0-1.0); EOS # 0.3 10^3/uL (0.0-0.5); EOS % 4.6 % (0.0-3.0); HEMATOCRIT 36.7 % (36.0-47.0); HEMOGLOBIN 11.9 g/dl (12.0-15.5); LYMPH # 1.5 10^3/uL (1.5-5.0); LYMPH % 25.4 % (24.0-44.0); MEAN CORPUSCULAR HEMOGLOBIN 31.2 pg (27.0-33.0); MEAN CORPUSCULAR HGB CONC 32.4 g/dl (32.0-36.5); MEAN CORPUSCULAR VOLUME 96.3 fl (80.0-96.0); MONO # 0.6 10^3/uL (0.0-0.8); MONO % 10.4 % (2.0-8.0); NEUTROPHILS # 3.4 10^3/uL (1.5-8.5); NEUTROPHILS % 58.6 % (36.0-66.0); PLATELET COUNT, AUTOMATED 211 10^3/uL (150-450); RED BLOOD COUNT 3.81 10^6/uL (4.00-5.40); WHITE BLOOD COUNT 5.9 10^3/uL (4.0-10.0)
[2022-01-14 10:25] LABS: ALBUMIN 3.5 GM/DL (3.2-5.2); BILIRUBIN,TOTAL 0.4 MG/DL (0.2-1.0); CALCIUM LEVEL 9.2 MG/DL (8.8-10.2); CHOLESTEROL RISK RATIO 3.6 (<5); CREATININE FOR GFR 1.69 MG/DL (0.55-1.30); GLOMERULAR FILTRATION RATE 30.3 (>32); POTASSIUM SERUM 5.1 MEQ/L (3.5-5.1); TOTAL PROTEIN 6.8 GM/DL (6.4-8.2); URIC ACID 10.6 MG/DL (2.6-6.0)
== END ==
PROVIDERS: ATTEND Internal Medicine
DX: I12.9 Hypertensive chronic kidney disease with stage 1 through stage 4 chronic kidney disease, or unspecified chronic kidney disease (principal); I25.9 Chronic ischemic heart disease, unspecified; N18.32 Chronic kidney disease, stage 3b

== ENCOUNTER → 2022-02-04 | Outpatient (CLI) | payer MEDICARE, MEDICAID | LOC: M WHC 08:35 | PROVIDERS: ATTEND Internal Medicine Hematology | DX: R10.84 Generalized abdominal pain (principal); N28.1 Cyst of kidney, acquired; R93.422 Abnormal radiologic findings on diagnostic imaging of left kidney; R93.5 Abnormal findings on diagnostic imaging of other abdominal regions, including retroperitoneum ==